=== PATIENT | female | born 1950 | race Caucasian/White ===

== ENCOUNTER 2019-04-17 14:27 | Outpatient (CLI) | payer MEDICARE, SELFPAY ==
--- NOTE | ~2019-04-17 | MM_ITS ---
EXAMINATION: MM screening mata BI w maia HISTORY: Screening mammogram TECHNIQUE: Craniocaudal and mediolateral oblique 3-D tomosynthesis images were obtained and synthetic 2-D images were generated. CAD analysis was submitted and interpreted. COMPARISON: No prior mammogram is available for comparison at this institution. BREAST PARENCHYMAL COMPOSITION: There are scattered areas of fibroglandular density. FINDINGS: There is no evidence of suspicious mass, calcification, or architectural distortion to sugg est malignancy in either breast. IMPRESSION: 1. No mammographic evidence of malignancy. 2. Recommend routine screening mammography in one year. BI-RADS Category 1: Negative Reviewed, dictated and finalized at location A. 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
== END 2019-04-17 14:28 | disposition home or self-care (01) ==
LOC: ANHIMG 14:36
PROVIDERS: PCP Family Medicine; Visit Provider Family Medicine
DX: Z12.31 Encounter for screening mammogram for malignant neoplasm of breast (principal)
CPT/HCPCS: 77063; 77067

== ENCOUNTER 2019-08-23 11:11 | Outpatient (CLI) | payer MEDICARE, SELFPAY ==
--- NOTE | ~2019-08-23 | US_ITS ---
EXAMINATION:US venous doppler LE LT INDICATION:Left lower extremity pain TECHNIQUE: Multiple grayscale, color flow and Doppler images of the left lower extremity deep venous systems were obtained and reviewed. COMPARISON:No prior studies for comparison. FINDINGS: The common femoral, superficial femoral and popliteal veins demonstrate normal respiratory variation, augmentation and compressibility. Color flow is also seen within the posterior tibial, pe roneal, greater saphenous and profunda veins. IMPRESSION: 1: No lower extremity deep venous thrombosis. Reviewed, dictated and finalized at location A.
== END 2019-08-23 11:12 | disposition home or self-care (01) ==
PROVIDERS: PCP Family Medicine; Visit Provider Family Medicine
DX: I83.812 Varicose veins of left lower extremity with pain (principal)
CPT/HCPCS: 93971

== ENCOUNTER 2020-03-04 13:41 | Outpatient (CLI) | payer MEDICARE, SELFPAY ==
--- NOTE | 2020-03-04 | ECHO_ITS ---
Patient Info Name: Natasha Del Rio Age: 69 years : 1950 Gender: Female Ht: 65 in Wt: 180 lbs BSA: 1.96 m2 HR: 80 bpm BP: 163 / 95 mmHg Heart Rhythm: Sinus Rhythm Technical Quality: Good Exam Date: 03/04/2020 2:14 PM Exam Location: [facility] Patient Status: Outpatient Admit Date: 03/04/2020 Staff Ordering Physician: Glenn Thomas MD Supervisor Felting: Evaristo Fernandes RDCS Attending Provider: Glenn Thomas MD Referring Physician: Martha BHATT; Exam Type: CA echo doppler color flow Study Info Indications Z95.2 - Presence of prosthetic heart valve Complete two-dimensional, color flow and Doppler transthoracic echocardiogram is performed. History/Risk Factors Prior bioprosthetic aortic valve replacement. Summary 1. Complete two-dimensional, color flow and Doppler transthoracic echocardiogram is performed. 2. Left ventricular systolic function is normal, estimated at 55-60%. 3. There is mildly increased left ventricular wall thickness. 4. The left ventricular diastolic function is grade I diastolic dysfunction. 5. The aortic valve is not well visualized. Bioprosthetic valve cannot be excluded. DVI 0.6 which would not be consistent with prosthetic valve stenosis if present. Consider LAVERNE if clinically indicated. 6. Unable to estimate PA systolic pressure due to poor spectral resolution of tricuspid regurgitant jet velocity. Left Ventricle Left ventricular chamber dimension is normal. Left ventricular systolic function is normal, estimated at 55-60%. There is mildly increased left ventricular wall thickness. The left ventricular diastolic function is grade I diastolic dysfunction. Right Ventricle Right ventricular chamber dimension is normal. Right ventricular systolic function is normal. Left Atria Left atrial chamber dimension is normal. Right Atria Right atrial chamber dimension is mildly enlarged. Aortic Valve The aortic valve is not well visualized. Bioprosthetic valve cannot be excluded. DVI 0.6 which would not be consistent with prosthetic valve stenosis if present. Consider LAVERNE if clinically indicated. There is trace aortic valve regurgitation. Pulmonic Valve The pulmonic valve is not well visualized. Mitral Valve The mitral valve has thickened leaflets. There is trace mitral valve regurgitation. The mitral valve annulus is moderately calcified. Tricuspid Valve The tricuspid valve leaflets are normal. There is trace tricuspid valve regurgitation. Unable to estimate PA systolic pressure due to poor spectral resolution of tricuspid regurgitant jet velocity. Pericardium/Pleural The pericardium appears not well visualized. Inferior Vena Cava Normal inferior vena cava with >50% collapse upon inspiration consistent with normal right atrial pressure, 5 mmHg. Aorta The aortic root size at the sinus of Valsalva is normal. Left Ventricular Outflow Tract Name Value Normal LVOT Doppler LVOT Peak Gradient 7 mmHg LVOT Mean Gradient 3 mmHg LVOT VTI 27 cm LVOT VTI/AV VTI Ratio 0.6 Mitral Valve
== END 2020-03-04 13:42 | disposition home or self-care (01) ==
PROVIDERS: PCP Family Medicine; Visit Provider Family Medicine
DX: Z95.2 Presence of prosthetic heart valve (principal)
CPT/HCPCS: 93306

== ENCOUNTER 2020-03-17 10:38 | Outpatient (NON) | payer MEDICARE, SELFPAY ==
[2020-03-17 22:17] LABS: SARS-CoV-2 RNA PCR Positive
== END 2020-03-17 10:39 ==
LOC: ANHCOVIDDT 10:39
PROVIDERS: PCP Family Medicine; Visit Provider Family Medicine
DX: U07.1 COVID-19 (principal)
CPT/HCPCS: C9803; U0003

== ENCOUNTER 2020-09-03 08:51 | Outpatient (CLI) | payer MEDICARE, SELFPAY ==
--- NOTE | ~2020-09-03 | MR_ITS ---
EXAMINATION: MR brain/brain stem wo/w con DATE: 09/03/2020 10:13 INDICATION: Slurred speech. TECHNIQUE: Magnetic resonance imaging (MRI) of the brain and brainstem was performed without and with 14 mL Multihance intravenous contrast. Sequences included sagittal and axial T1-weighted SE, axial d iffusion-weighted FS SE, axial T2*-weighted GRE, axial T2-weighted FLAIR, and axial T2-weighted FSE. Postcontrast axial and coronal T1-weighted SE was obtained. Apparent diffusion coefficient (ADC) maps were created. COMPARISON: Head CT dated 12/04/2017 FINDINGS: There are no areas of restricted diffusion to suggest acute infarction. Small old infarct in the righ t cerebellar hemisphere. No intracranial hemorrhage or abnormal intracranial mass lesion. There are s cattered areas of nonspecific increased T2-weighted signal intensity in the cerebral white matter, pr edominantly involving the deep and periventricular white matter which is within normal limits for age . There are no intraparenchymal signal abnormalities seen on the other pulse sequences. The ventricle s are symmetric and normal in size. There are no abnormal extra-axial fluid collections. Flow voids a re seen in the cerebral arteries on the T2-weighted sequences consistent with their expected patency. Mucosal thickening in the right maxillary and bilateral ethmoid sinuses. Visualized orbits and soft tissues are unremarkable. There are no areas of abnormal enhancement on the post contrast images. IMPRESSION: 1. No acute intracranial process or abnormally enhancing brain lesions. 2. 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 3. Mild scattered nonspecific white matter T2 hyperintensity which is within normal limits for age an d likely sequela of chronic small vessel ischemic disease. Reviewed, dictated and finalized at location A. IMPRESSION: 1. No acute intracranial process or abnormally enhancing brain lesions. 2. 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 3. Mild scattered nonspecific white matter T2 hyperintensity which is within no rmal limits for age and likely sequela of chronic small vessel ischemic disease .
--- NOTE | ~2020-09-03 | US_ITS ---
US right upper quadrant INDICATION: Disorder of bilirubin metabolism PROCEDURE: Realtime right upper abdominal ultrasound. COMPARISON: No prior studies for comparison. FINDINGS: The pancreas is normal without focal mass or pancreatic ductal dilation. There is a 12 mm cyst of the liver. Otherwise, liver echotexture is unremarkable. There is normal directional flow in the portal vein. Gallbladder is surgically absent. Common bile duct measures 4 mm. IMPRESSION: 1: Liver cysts measuring 12 mm. 2: Status post cholecystectomy. Reviewed, dictated and finalized at location B.
[2020-09-03 09:45] LABS: Estimated Glomerular Filt Rate > 60
== END 2020-09-03 08:52 | disposition home or self-care (01) ==
PROVIDERS: PCP Family Medicine; Visit Provider Nurse Practitioner
DX: E80.7 Disorder of bilirubin metabolism, unspecified (principal); R93.0 Abnormal findings on diagnostic imaging of skull and head, not elsewhere classified; K76.89 Other specified diseases of liver; Z90.49 Acquired absence of other specified parts of digestive tract
CPT/HCPCS: 70553; 76705; A9577

== ENCOUNTER 2020-10-29 12:30 | Outpatient (RCR) | payer MEDICARE, SELFPAY ==
--- NOTE | 2020-10-03 11:31 | PTOPEVAL ---
PHYSICAL THERAPY EVALUATION AND PLAN OF CARE 10-03-20 Thank you for referring Natasha Del Rio to [facility] for the diagnosis of decreased gait and balance skills. She is scheduled to be seen for therapy? 2 x/week for 4 weeks. Please review, sign, date and return this plan of care AMI. I agree with and certify that the following plan of care is medically necessary. Referring Physician Date Attending Provider: Glenn Thomas MD *PT Outpatient Evaluation Start: 10/03/20 10:31 Past Medical History Source of Past Medical History Patient Neurological History Hx Cerebrovascular Accident (CVA) Yes: showed on MRI- pt not sure when occurred Cardiovascular History Hx Hypertension Yes: med control Hx Valve Replacement Yes: aortic valve replacement - on blood thinner Respiratory History Hx Respiratory Disorders No Significant History Gastrointestinal History Hx Cholecystectomy Yes Genitourinary History Hx Genitourinary Disorders No Significant History Musculoskeletal History Hx Back Pain Yes: cannot stand very long due to back pain Hx Other Musculoskeletal Disorders Yes: chronic neck & back pain- see chiropractor PRN Endocrine History Hx Endocrine Disorders No Significant History HEENT History Hx Other HEENT Disorders Yes: wear glasses Other History Hx Other Medical Conditions Yes: had COVID Onur- recovery ~ 3wk;have not had COVID vaccine Evaluation Information Problem Diagnosis poor balance; dizziness Onset Dec 2019 Subjective Information gradual decrease in walking Query Text:As Reported By Patient/ and balance abilities; people Family report speech is different- talk slower or cannot understand my words; have had 3 falls in the past 6 months - when walking--uneven surface and when carrying something in hands, toe catch and feet drag; to see neurologist, but not until Sept; reports sometimes head feels foggy and off balanced; discussed reasons for this--BP , to start monitoring at home; stated- usually happens after up on feet awhile; discussed rest time, fluid and food intake- reports not drinking much water;
--- NOTE | 2020-10-27 11:41 | PCPTNOTE ---
Patient called & cancelled scheduled appointment this date due to falling this morning while walking her dog. Per reception agent staff Pt stated she was too sore to come in. Will continue per POC.
--- NOTE | 2020-10-29 13:23 | PTOPEVAL ---
PHYSICAL THERAPY DISCHARGE 10-29-20 Refer to the clinical summary below, for her status today, compared to the initial evaluation. The goals were achieved, except the goal for NO falls. Thank you for referring Natasha Del Rio to [facility] Please review, sign, date and return this Discharge AMI. I agree with and certify that the following plan of care is medically necessary. Referring Physician Date Attending Provider: Glenn Thomas MD Document 10/29/20 12:40 TALIA (Rec: 10/29/20 13:23 TALIA [id number]) Assessment Status Discharge Subjective Information Natasha reports: had a fall Query Text:As Reported By Patient/ when walking dog and got Family pulled over--landed on her L hand and it is still sore; am doing OK on stairs; doing leg exercises and doing good with them; feel like walking is better- not dragging toe and picking up feet better, more balanced; walking with walking stick when go outside and walk, not using anything in the house; agreed to discharge from PT services and to continue with exercises at home; Pain Assessment Timing of Pain Assessment Timing of Pain Assessment Assessment Self Report Self Report Pain Level 0 Pain Score Pain Score 0: Self Report Additional Pain Score Comments pain L wrist and hand due to fall few days ago and landed on L UE- walking dog and pulled her over Lower Extremity Muscle Strength Testing General Lower Extremity Strength Gross Lower Extremity Strength functional strength testing: single leg standing R 3/L 3 seconds supine: SLR R 20/L reps; bridge x 20 reps side lying hip abduction R to ~ 10' hip abduction x 20/ L hip abduction to ~ 10' x 20 reps sitting ankle circles L x 20 reps- clock and counter clock worthy with good control HEP: verbal review of HEP, reinforced continue and add single leg standing with hold countertop PRN; reminders
== END 2020-10-30 16:31 | disposition home or self-care (01) ==
LOC: ANHPT 12:30
PROVIDERS: PCP Family Medicine; Visit Provider Family Medicine
DX: R42 Dizziness and giddiness (principal); R26.81 Unsteadiness on feet
CPT/HCPCS: 97110; 97161

== ENCOUNTER 2020-11-26 09:53 | Outpatient (CLI) | payer MEDICARE, SELFPAY ==
--- NOTE | ~2020-11-26 | US_ITS ---
EXAMINATION: US carotid duplex BI DATE: 11/26/2020 10:27 INDICATION: Cerebral infarction TECHNIQUE: Grayscale, color Doppler, and pulsed Doppler images of the cervical carotid arteries were obtained. The degree of vessel stenosis is placed in one of the following categories: normal, <50%, 5 0-69%, >=70% but less than near-occlusion, near-occlusion, or total occlusion. Note that percent sten osis relative to normal distal artery lumen diameter is indirectly measured from velocity measurement s as described by Zen, et al. Radiology 2003; 229:340-346. Notes: Normal: Peak systolic velocity <125 centimeters/sec and no plaque <50%. Peak systolic velocity <125 ( EDV <40; ICA/CCA PSV ratio <2.0; used these factors only a tandem lesions or low cardiac output or co ntralateral disease) 50-69 %: PSV 125-230 (EDV 40-100; ratio 2-4) >= 70% but less than near occlusion: PSV greater than 230 (EDV > 100; ratio> 4.0) Near Occlusion: PSV that is variable; markedly narrowed lumen Occlusion: Absent flow on color/spectral Doppler and no lumen on benitez scale. COMPARISON: None. FINDINGS: RIGHT: The right common carotid artery (CCA) peak systolic velocity (PSV) is 74 cm/s. The right internal car otid artery (ICA) PSV is 64 cm/s. The right ICA end-diastolic velocity (EDV) is 20 cm/s. The right IC A/CCA PSV ratio is 0.9. The external carotid artery (ECA) PSV is 51 cm/s. There is antegrade flow in the right vertebral artery. LEFT: The left CCA PSV is 78 cm/s. The left ICA PSV is 54 cm/s. The left ICA EDV is 15 cm/s. The left ICA/C CA PSV ratio is 0.7. The ECA PSV is 65 cm/s. There is antegrade flow in the left vertebral artery. IMPRESSION: 1. Less than 50% stenosis in the right internal carotid artery by sonographic criteria. 2. Less than 50% stenosis in the left internal carotid artery by sonographic criteria. Reviewed, dictated and finalized at location A. IMPRESSION: 1. Less than 50% stenosis in the right internal carotid artery by sonographic jorgito carranza. 2. Less than 50% stenosis in the left internal carotid artery by sonographic lakesha bermudez.
== END 2020-11-26 09:54 | disposition home or self-care (01) ==
LOC: ANHIMG 09:58
PROVIDERS: PCP Family Medicine; Visit Provider Internal Medicine Cardiovascular Disease
DX: I65.23 Occlusion and stenosis of bilateral carotid arteries (principal)
CPT/HCPCS: 93880

== ENCOUNTER 2021-01-29 13:01 | Outpatient (CLI) | payer MEDICARE, SELFPAY ==
--- NOTE | ~2021-01-29 | MM_ITS ---
EXAMINATION: MM screening mata BI w maia HISTORY: Screening mammogram TECHNIQUE: Craniocaudal and mediolateral oblique 3-D tomosynthesis images were obtained and synthetic 2-D images were generated. CAD analysis was submitted and interpreted. COMPARISON: No prior mammogram is available for comparison at this institution. BREAST PARENCHYMAL COMPOSITION: The breasts are heterogeneously dense, which may obscure small masses . FINDINGS: Stable mild fibroglandular asymmetry. There is no evidence of suspicious mass, calcificatio n, or architectural distortion to suggest malignancy in either breast. There has been no suspicious i nterval change. IMPRESSION: 1. No mammographic evidence of malignancy. 2. Recommend routine screening mammography in one year. BI-RADS Category 1: Negative Reviewed, dictated and finalized at location A. E CARPENTER
--- NOTE | ~2021-01-29 | DEXA_ITS ---
Bone Density Report Name: Natasha Del Rio Age: 70 Sex: Female Ethnicity: White Date of : 1950 Indication: postmenopausal; height loss; Referring Provider: Florencio, Zraa Zuleta Study: Bone densitometry was performed. Exam Date: January 29, 2021 Accession number: [id number] Bone Density: Region BMD T-score Z-score Classification AP Spine (L1-L4) 0.645 -3.7 -1.6 Osteoporosis Femoral Neck (Left) 0.563 -2.6 -0.8 Osteoporosis Total Hip (Left) 0.589 -2.9 -1.4 Osteoporosis Total Hip Bilateral Avg 0.561 -3.2 -1.7 Osteoporosis Femoral Neck (Right) 0.545 -2.7 -1.0 Osteoporosis Total Hip (Right) 0.532 -3.4 -1.9 Osteoporosis World Health Organization criteria for BMD impression classify patients as: Normal (T-score at or above -1.0), Osteopenia (T-score between -1.0 and -2.5), or Osteoporosis (T-score at or below -2.5). 10-year Fracture Risk: FRAX not reported because: Some T-score for Spine Total or Hip Total or Femoral Neck at or below -2.5 Clinical Information Provided by Patient: Has used the following medications: Vitamin D Patient maximum height was 66 Menopause Age: 56 No regular weight bearing exercise Does not regularly consume dairy products Onset of menses at age 15 Number of children 1 Impression: The patient has osteoporosis, based on the Total Spine T-score. Discussion: INCREASED RISK OF FRACTURE. BONE DENSITY IS UNDESIRABLY LOW AT ONE OR MORE SKELETAL SITES, CONSISTENT WITH POSTMENOPAUSAL OSTEOPOROSIS. This patient's lowest T-score meets the World Health Organization's (WHO) criteria for osteoporosis at one or more sites (T-score -2.5 or below). In untreated patients, the risk of osteoporotic fracture increases approximately two-fold for each 1.0 SD decrease in T-score. Low bone density is not the only risk factor for fracture; also consider factors such as patient's age, frailty or poor health, risk of falling, risk of injury, previous osteoporotic fracture, family history of osteoporosis, cigarette smoking, low body weight, etc. Not everyone with low bone mineral density has osteoporosis; osteomalacia and other metabolic bone disorders should also be considered. Patients who have osteoporosis should be evaluated for specific diseases and conditions (secondary causes) that may cause or contribute to bone loss. The [place] [employer] Clinical Endocrinologists (AACE) and National Osteoporosis Foundation (NOF) recommend pharmacologic intervention for all postmenopausal women whose T-score is in this range. The patient should follow a healthful lifestyle (good nutrition with adequate calcium and vitamin D, and appropriate weight-bearing exercise). Follow-Up: Consider a repeat BMD and Vertebral Fracture Assessment (VFA) exam in 2 years or sooner if medically necessary, to reassess this patient's status.
== END 2021-01-29 13:02 | disposition home or self-care (01) ==
PROVIDERS: PCP Family Medicine; Visit Provider Nurse Practitioner
DX: Z12.31 Encounter for screening mammogram for malignant neoplasm of breast (principal); Z78.0 Asymptomatic menopausal state; M81.0 Age-related osteoporosis without current pathological fracture
CPT/HCPCS: 77063; 77067; 77080

== ENCOUNTER 2021-07-21 11:08 | Emergency (ER) | payer MEDICARE, SELFPAY ==
--- NOTE | ~2021-07-21 | CT_ITS ---
CT OF RIGHT WRIST EXAMINATION: CT wrist RT wo con DATE: 07/21/2021 14:04 INDICATION: Known fracture. TECHNIQUE: Computed tomography (CT) of the right wrist was performed without intravenous contrast. Au tomated exposure control and iterative reconstruction technique were employed. The dose-length produc t was 402.21 mGy-cm. COMPARISON: None FINDINGS: Limitations: None Bones: Comminuted mildly impacted and dorsally displaced fracture of the distal right radius/radial s tyloid with extension to the radiocarpal joint. Minimally displaced ulnar styloid fracture. No other fracture detected. Mild scattered degenerative changes in the carpal bones. Soft Tissues:The soft tissues appear within normal limits. No evidence of mass or fluid collection. Fluid: Mild joint fluid and soft tissue swelling about the fracture site. IMPRESSION: Mildly impacted and dorsally displaced comminuted intra-articular distal right radial fracture. Minim ally displaced right ulnar fracture. Reviewed, dictated and finalized at location K. IMPRESSION: Mildly impacted and dorsally displaced comminuted intra-articular distal right radial fracture. Minimally displaced right ulnar fracture.
--- NOTE | ~2021-07-21 | XR_ITS ---
EXAMINATION: XR ribs RT 2V w CXR 2V INDICATION: Chest pain after fall TECHNIQUE: PA and lateral views of the chest and 3 views of the right ribs were obtained. COMPARISON: None. FINDINGS: There are minimal bibasilar airspace opacities. Changes of cardiac valve surgery are noted. There is no pleural effusion or pneumothorax. There is moderate thoracic spondylosis. Surgical clips in the right upper quadrant are likely from prior cholecystectomy. No displaced rib fracture is iden tified. IMPRESSION: 1. No acute cardiopulmonary abnormality or evidence of displaced rib fracture. Reviewed, dictated and finalized at location A.
--- NOTE | ~2021-07-21 | XR_ITS ---
EXAMINATION: XR wrist RT min 3V INDICATION: Right wrist pain, initial encounter TECHNIQUE: Four views of the right wrist are obtained. COMPARISON: None available FINDINGS: There is a comminuted intra-articular fracture of the distal radius. There is an ulnar styl oid avulsion fracture. Wrist soft tissue swelling is present. No additional fracture is identified. IMPRESSION: 1. Comminuted intra-articular fracture of the distal radius. 2. Ulnar styloid avulsion. 3. Soft tissue swelling. Reviewed, dictated and finalized at location A.
--- NOTE | ~2021-07-21 | XR_ITS ---
EXAMINATION: XR hand RT 2V INDICATION: Right hand pain TECHNIQUE: Two views of the right hand are obtained. COMPARISON: None available FINDINGS: There is an acute, traumatic, closed, minimally displaced fracture of the distal radius. Th ere is no acute fracture, dislocation, or subluxation of the hand. There is moderate to severe osteoa rthritis at the first interphalangeal joint. There is mild osteoarthritis of multiple additional inte rphalangeal joints. IMPRESSION: 1. Right distal radius fracture. 2. No acute osseous abnormality of the hand. Reviewed, dictated and finalized at location A.
--- NOTE | ~2021-07-21 | CT_ITS ---
EXAMINATION: CT brain wo con INDICATION: Headache COMPARISON: 12/04/2017 TECHNIQUE: Standard unenhanced head CT. The dose-length product (DLP) was 605.33 mGy-cm. The mA was a djusted according to patient size. Iterative reconstruction technique was employed. FINDINGS: There is no acute intraparenchymal hemorrhage. No evidence of mass lesion. No evidence of a cute infarction. There is mild periventricular and subcortical hypodensity probably related to small vessel ischemic disease. There is mild prominence of the sulci and ventricles related to cerebral atr ophy. Intracranial calcified cerebral atherosclerosis is noted. There are no extra-axial collections. There is no mass effect or midline shift. The orbits and soft tissues are unremarkable. There is kenneth r complete opacification of the right maxillary sinus. IMPRESSION: 1. No acute intracranial abnormality. 2. Age related findings. Reviewed, dictated and finalized at location A.
[2021-07-21 11:12] VITALS: BP 187/78; PULSE 66; RESP 16; TEMP 36.4; O2SAT 99
--- NOTE | 2021-07-21 12:23 | ED.FALL ---
HPI - Fall General Chief Complaint: Fall Stated Complaint: R wrist injury Time Seen by Provider: 07/21/21 12:03 Source: patient History of Present Illness HPI Narrative: Patient presents with a fall. Patient ports she was outside weeding when she tripped on something in the yard reports she fell on her extended right hand and onto her right chest. Reports pain on her right hand and wrist that is achy, constant, worse with moving her wrist, no radiation. She also reports pain in her right chest that is achy, constant, worse with moving her torso. She had striking her head and had loss of consciousness denies any focal numbness or weakness. She denies any prodrome prior to the fall chest pain shortness of breath or lightheadedness. Related Data Home Medications Medication Instructions Recorded Confirmed warfarin 4 mg tablet 10 mg PO DAILY tablet 05/09/20 05/11/21 warfarin 1 mg tablet 1 mg PO DAILY PRN 03/23/21 05/11/21 coenzyme Q10-red yeast rice 25 cap PO 05/11/21 05/11/21 mg-600 mg capsule omega 2-yij-hjw-fish oil 1,600 5 ml PO DAILY 05/11/21 05/11/21 mg-500 mg-800 mg/5 mL oral liquid pyridoxine (vitamin B6) 500 mg 500 mg PO DAILY 05/11/21 05/11/21 tablet Allergies Allergy/AdvReac Type Severity Reaction Status Date / Time No Known Allergies Allergy Verified 05/11/21 09:19 Review of Systems Review of Systems: CONSTITUTIONAL: Denies fever, chills, or sweats. EYES: Denies visual changes, redness, or discharge. ENT: Denies rhinorrhea, congestion, sore throat, or otalgia. CARDIOVASCULAR: Denies palpitations, or edema. RESPIRATORY: Denies cough or dyspnea. GASTROINTESTINAL: Denies abdominal pain, nausea, vomiting, or diarrhea. GENITOURINARY: Denies dysuria or hematuria. SKIN: Denies rash or itching. MUSCULOSKELETAL: Denies back pain, or myalgia. NEUROLOGIC: Denies headache, numbness, dizziness, or weakness. PSYCHIATRIC: Denies anxiety or depression. All systems reviewed & are unremarkable except as noted in HPI and below PMFSH Past Medical History Medical History Blood clot in vein Hypertension Vitamin D deficiency Surgical History Surgical History Presence of other heart-valve replacement Social History Social History Smoking packs per day: 0.5 Smoking cigarettes per day: 10.0 Years smoked: 15 Smoking pack-years: 7.50 Smoking status: Former smoker Smoking end date: 03/18/99 Alcohol intake: never Substance use: never Substance use type: does not use Exam Narrative: GENERAL: Well-appearing, well-nourished, and in no acute distress. HEAD: Normocephalic, atraumatic. EYES: PERRLA and EOMI. ENT: Nares clear, no rhinorrhea or epistaxis. Mucous membranes moist. NECK: Supple. No masses. No JVD EXTREMITIES: Hematoma to the dorsal aspect of the right hand with overlying ecchymoses. There is diffuse tenderness to the dorsal aspect of the hand and wrist. There is no obvious deformity no focal bony tenderness range of motion remains intact sensation intact to light touch distally cap refill less than 2 seconds distally. CHEST: Mild tenderness with palpation on the right lateral chest wall no obvious deformity no crepitus. SKIN: Warm, dry, no rash. NEURO: No focal deficits. Alert and oriented x3. PSYCH: Normal mood and affect. Course Reevaluation(s) Reevaluation #1: Case cussed with Ortho on-call who requested a CT scan splint and outpatient follow-up. Patient updated on the plan and she is comfortable with the outpatient plan. Date: 07/21/21 Time: 13:49 Reevaluation #2: Splint in place patient resting comfortably results and plan again reviewed with patient. Medication precautions given Date: 07/21/21 Time: 14:28 Vital Signs Vital signs: Vital Signs Temperature 36.4 C L 07/21/21 11:12 Pulse Rate 66 07/21/21 11:12
[2021-07-21] MEDS: ACETAMINOPHEN 500 MG TABLET 1000 MG PO (13:58)
[2021-07-21 14:56] VITALS: BP 171/74; PULSE 66; RESP 18; O2SAT 98
--- NOTE | 2021-08-24 09:52 | PC.NURSE ---
LATE ENTRY This note is being entered to document information to the patient's record. The following information was omitted on [07/21/2021], by [Coty Ramirez RN]. R wrist splint placed per ERMD order.
== END 2021-07-21 14:57 | disposition home or self-care (01) ==
PROVIDERS: Emergency Provider Emergency Medicine; PCP Internal Medicine
DX: S52.571A Other intraarticular fracture of lower end of right radius, initial encounter for closed fracture (principal); S52.611A Displaced fracture of right ulna styloid process, initial encounter for closed fracture; S60.221A Contusion of right hand, initial encounter; I10 Essential (primary) hypertension; E55.9 Vitamin D deficiency, unspecified; Z95.2 Presence of prosthetic heart valve; Z79.01 Long term (current) use of anticoagulants; Z87.891 Personal history of nicotine dependence; W18.09XA Striking against other object with subsequent fall, initial encounter
CPT/HCPCS: 29125; 70450; 71046; 71100; 73110; 73120; 73200; 99284; A9270

== ENCOUNTER 2021-07-28 11:36 | Outpatient (CLI) | payer MEDICARE, SELFPAY ==
--- NOTE | ~2021-07-28 | XR_ITS ---
EXAMINATION: XR wrist RT min 3V INDICATION: Wrist pain after fall, wrist fracture one week ago TECHNIQUE: Three views of the right wrist are obtained. COMPARISON: 07/22/2011 FINDINGS: There is a comminuted intra-articular fracture of the distal right radius without superimpo sed acute findings identified. Bone alignment is unchanged. Soft tissue swelling has decreased. A elsie t has been applied. IMPRESSION: 1. Comminuted intra-articular fracture of the distal right radius without definite acute findings elli ntified. Reviewed, dictated and finalized at location A. IMPRESSION: 1. Comminuted intra-articular fracture of the distal right radius without defin ite acute findings identified.
== END 2021-07-28 11:37 | disposition home or self-care (01) ==
PROVIDERS: PCP Internal Medicine; Visit Provider Internal Medicine
DX: S52.514D Nondisplaced fracture of right radial styloid process, subsequent encounter for closed fracture with routine healing (principal); X58.XXXD Exposure to other specified factors, subsequent encounter
CPT/HCPCS: 73110

== ENCOUNTER 2021-09-15 09:47 | Observation (INO) | payer MEDICARE, SELFPAY ==
[2021-09-15] VITALS (13 sets, daily range): BP systolic 114–156; BP diastolic 66–88; PULSE 68–85; RESP 15–20; TEMP 36.1–36.7; O2SAT 95–99
--- NOTE | ~2021-09-15 | XR_ITS ---
EXAMINATION: XR hand LT min 3V INDICATION: Left hand pain, initial encounter TECHNIQUE: Three views of the left hand are obtained. COMPARISON: None available FINDINGS: There is an acute, traumatic, closed, oblique fracture in the distal neck of the fifth meta carpal. Soft tissue swelling surrounds the fracture. There are 45 degrees of palmar angulation at the fracture site. No additional fracture is identified. There is mild osteoarthritis of multiple interp halangeal joints. IMPRESSION: 1. Acute fracture in the distal neck of the fifth metacarpal with palmar angulation. Reviewed, dictated and finalized at location B. IMPRESSION: 1. Acute fracture in the distal neck of the fifth metacarpal with palmar angula tion.
--- NOTE | ~2021-09-15 | CT_ITS ---
EXAMINATION: CT brain wo con INDICATION: Head injury COMPARISON: 07/21/2021 TECHNIQUE: Standard unenhanced head CT. The dose-length product (DLP) was 681.00 mGy-cm. The mA was a djusted according to patient size. Iterative reconstruction technique was employed. FINDINGS: There is no acute intraparenchymal hemorrhage. No evidence of mass lesion. No evidence of a cute infarction. There is mild periventricular and subcortical hypodensity probably related to small vessel ischemic disease. There is mild prominence of the sulci and ventricles related to cerebral atr ophy. Intracranial calcified cerebral atherosclerosis is noted. There are no extra-axial collections. There is no mass effect or midline shift. The orbits are unremarkable. There is left nasal soft tiss ue swelling. There is chronic near complete opacification of the right maxillary sinus with sclerosis of the sinus lanza, consistent with chronic sinusitis. Mild mucosal thickening is noted in the ethmo idal air cells. IMPRESSION: 1. No acute intracranial abnormality. 2. Age related findings. Reviewed, dictated and finalized at location B.
--- NOTE | ~2021-09-15 | CT_ITS ---
EXAMINATION: CT cervical spine wo con DATE: 09/15/2021 10:19 INDICATION: Head injury TECHNIQUE: Computed tomography (CT) of the cervical spine was performed without intravenous contrast. The dose-length product (DLP) was 120.75 mGy-cm. Automated exposure control and iterative reconstruc tion technique were employed. COMPARISON: 12/04/2017 FINDINGS: There is no fracture, dislocation, or subluxation. There is moderate loss of intervertebral disc space height at C5-6 and mild loss of the disc space height at C3-4 and C4-5. The odontoid is i ntact. The vertebral body heights are normal. The prevertebral soft tissues are unremarkable. There i s mild to moderate facet and uncovertebral joint osteoarthritis at multiple levels. IMPRESSION: 1. Mild cervical spondylosis without acute findings or significant interval change. Reviewed, dictated and finalized at location B. IMPRESSION: 1. Mild cervical spondylosis without acute findings or significant interval horacio nge.
[2021-09-15 11:33] LABS: Basophils Percent Auto 0.3 % (0.2-1.2); Eosinophils Percent Auto 0.3 % (0-4.4); Hematocrit 37.1 % (37.0-47.0); Hemoglobin 12.4 g/dL (12.0-15.0); Immature Granulocyte Absolute 0.03 K/mm3 (0.00-0.031); Immature Granulocyte Percent A 0.4 % (0-0.5); Lymphocytes Absolute Auto 0.88 K/mm3 (0.9-3.2); Lymphocytes Percent Auto 13.1 % (18.3-44.2); Mean Corpuscular HGB Conc 33.4 g/dl (32-36); Mean Corpuscular Hemoglobin 30.1 pg (26-34); Mean Platelet Volume 9.2 fl (7.4-10.4); Monocytes Absolute Auto 0.4 K/mm3 (0.1-0.6); Monocytes Percent Auto 6.1 % (2.6-8.5); Neutrophils Absolute Auto 5.4 K/mm3 (1.3-6.7); Neutrophils Percent Auto 79.8 % (45.5-73.1); Platelet Count Result 242 k/mm3 (150-375); Red Blood Count 4.12 M/mm3 (4.2-5.4); Red Cell Distribution Width 13.3 % (11.5-14.5); White Blood Count 6.7 K/mm3 (4.5-10.0)
[2021-09-15 11:46] LABS: Anion Gap 6 mmol/L (8-16); Blood Urea Nitrogen 14 mg/dL (7-17); Calcium 9.1 mg/dL (8.4-10.2); Carbon Dioxide 26 mmol/L (22-30); Chloride 105 mmol/L (98-107); Estimated CRCL calculation 65 ml/min; Estimated Glomerular Filt Rate > 60; Glucose 110 mg/dL (65-110); Potassium 4.2 mmol/L (3.4-5.0); Sodium 137 mmol/L (137-145)
--- NOTE | 2021-09-15 11:58 | ED.HEATRA ---
HPI - Head Injury General Chief complaint: Head Injury Stated complaint: fall Time Seen by Provider: 09/15/21 10:09 History of Present Illness HPI Narrative: 70-year-old female with history of multiple CVAs and difficulty ambulating as result presents here because she had fallen several times at home. She states that she is usually reliant on her right arm for using her cane however she had broken this recently, and therefore has been more off balance than usual. When she fell yesterday she hit her head, and today she fell hit her head again, and also landed on her left hand which is also painful. Denies any focal numbness or weakness. She is on Coumadin. Related Data Home Medications Medication Instructions Recorded Confirmed warfarin 4 mg tablet 10 mg PO DAILY 05/09/20 07/28/21 warfarin 1 mg tablet 1 mg PO DAILY PRN 03/23/21 07/28/21 Allergies Allergy/AdvReac Type Severity Reaction Status Date / Time No Known Allergies Allergy Verified 07/28/21 10:41 Review of Systems Review of Systems: CONST: No fever. HEENT: Head trauma C/V: No chest pain RESP: No cough GI: No nausea vomit : No dysuria. M/S: Left hand pain SKIN: Bruising of face, left hand NEURO: [No headache or focal numbness or weakness] PSYCH: [No depression] [facility] Past Medical History Medical History Blood clot in vein Hypertension Vitamin D deficiency Surgical History Surgical History Presence of other heart-valve replacement Social History Social History Smoking packs per day: 0.5 Smoking cigarettes per day: 10.0 Years smoked: 15 Smoking pack-years: 7.50 Smoking end date: 03/18/99 Alcohol intake: never Substance use: never Substance use type: does not use Exam Narrative: EXAMINATION OF ORGAN SYSTEMS/BODY AREAS: Constitutional: Vital signs per nursing GENERAL:[No acute distress, non-toxic appearing.] HEAD: Abrasions and contusions to the head EYES: EOMI, bruising periorbital ENT: Hearing grossly intact LUNGS: Nonlabored breathing. HEART: [Regular rate and rhythm] ABD: [Soft], [tender to palpation] EXT: Normal range of motion but bruising, swelling and tenderness to left hand, normal cap refill SKIN: Bruising to face, left hand NEURO: [Alert and oriented x 3. No gross focal sensory or strength deficits.] PSYCH: Normal affect Course Vital Signs Vital signs: Vital Signs Temperature 97.0 F L 09/15/21 09:53 Pulse Rate 85 09/15/21 09:53 Respiratory Rate 20 09/15/21 09:53 Blood Pressure 142/88 H 09/15/21 09:53 Pulse Oximetry 99 09/15/21 09:53 Oxygen Delivery Room Air 09/15/21 09:53 Temperature 97.0 F L 09/15/21 09:53 Pulse Rate 82 09/15/21 12:01 Respiratory Rate 15 09/15/21 12:01 Blood Pressure 146/79 H 09/15/21 12:01 Pulse Oximetry 98 09/15/21 12:01 Oxygen Delivery Room Air 09/15/21 10:07 MDM - Head Injury MDM Narrative Medical decision making narrative: 70-year-old female presenting with falls, vital signs stable, exam does show swelling to face and tenderness and deformity to the left hand, x-ray does confirm fracture to the fifth metacarpal, CT head/C spine obtained given she is on Coumadin with falls, and they are negative for acute abnormality. I suspect most likely mechanical fall due to her chronic instability which is exacerbated by her right upper extremity fracture, doubt cardiac cause without any history of syncope, doubt infection or dehydration with normal vitals and labs. I do not feel patient is able to go home as she now has bilateral upper extremity fractures, she will be admitted, case discussed with hospitalist. Lab Data Result diagrams: 09/15/21 11:16 09/15/21 11:16 Labs: Lab Results 09/15/21 09/15/21 Range/Units 11:16 11:16 WBC 6.7 (4.5-10.0) K/mm3 RBC 4.
--- NOTE | 2021-09-15 13:01 | PM.IMHP ---
H&P: HPI History of Present Illness Date/Time: 09/15/21 13:01 Chief Complaint: fall with closed head injury Narrative: This is a 70-year-old female patient who has a history of having CVA he has with balance issues. The patient presented to the emergency room because she has fallen several times at home. The patient has her right wrist in a wrist splint and was having difficulty walking as that is her dominant arm and she uses a cane. The patient stated that she attempted to answer the door and then turned around and fell over the dog. The patient was complaining of left hand pain. She has contusions to her periorbital and nasal area. The patient also had a bloody nose at the time. The patient is on Coumadin. Her H&H is stable today. Hand x-ray of the left hand was read as acute fracture of the distal neck of the 5th metacarpal and palmar angulation. Cervical spine CT was read as mild cervical spondylosis without acute findings or significant interval change. Head CT was read as no acute intracranial abnormality. No age-related findings. Patient is being admitted to observation status and Case Management has been consulted. Review of Systems Review of Systems: All systems reviewed & are unremarkable except as noted in HPI and below Constitutional: Constitutional: Reports as per HPI and Reports no additional constitutional complaints Eyes: Eyes: Reports as per HPI and Reports no additional eye complaints ENT: Reports system reviewed and no additional complaints, except as documented and Reports Normal hearing present Cardiovascular: Cardiovascular: Reports no additional cardiovascular complaints Respiratory: Respiratory: Reports no additional respiratory complaints and Reports no additional respiratory complaints Gastrointestinal: Gastrointestinal: Reports as per HPI and Reports no additional gastrointestinal complaints Musculoskeletal: Musculoskeletal: Reports no additional musculoskeletal complaints Integumentary/Breasts: Skin/Breast: Reports system reviewed and no additional complaints, except as docu and Reports as per HPI Neurologic: Reports system reviewed and no additional complaints, except as documented, Reports as per HPI and Reports Normal hearing present Psychiatric: Psychiatric: Reports no additional psychiatric complaints and Reports as per HPI Endocrine: Endocrine: Reports no additional endocrine complaints Hematologic/Lymphatic: Hematologic/Lymphatic: Reports no additional hematologic/lymphatic complaints Allergic/Immunologic: Allergic/Immunologic: Reports no additional allergic/immunologic complaints [facility] Past Medical History Medical History (Updated 09/15/21 @ 15:36 by Zara Aaron NP) Blood clot in vein Hypertension Vitamin D deficiency Surgical History Surgical History (Updated 09/15/21 @ 15:31 by Zara Aaron NP) Hx of cholecystectomy Presence of other heart-valve replacement Family History Family History (Updated 09/15/21 @ 15:31 by Zara Aaron NP) Mother Cerebrovascular accident Social History Social History (Updated 09/15/21 @ 15:32 by Zara Aaron NP) Social History: She lives at home alone. She only has 1 son. Her son is the durable power patent attorney for healthcare and she has decided to be a full code. She is and her ex- is . She is retired from [employer]. Smoking packs per day: 0.5 Smoking cigarettes per day: 10.0 Years smoked: 15 Smoking pack-years: 7.50 Smoking status: Former smoker Smoking end date: 03/18/99 Alcohol intake: never Substance use: never Substance use type: does not use Meds Home Medications and Allergies Home Medications Medication Instructions Recorded Confirmed Type warfarin 4 mg tablet 10 mg PO DAILY 05/09/20 07/28/21 History warfarin 1 mg tablet 1 mg PO DAILY PRN 03/23/21 07/28/21 History calcium carbonate 500 mg-vitamin 1 tablet PO DAILY #90 tabs 07/22/21 07/28/21 Rx D3 10
[2021-09-15 14:00] LABS: SARS-CoV-2 RNA PCR Negative
--- NOTE | 2021-09-15 15:23 | ADMGEN ---
This patient, Natasha Del Rio, was admitted to 3 [facility] Surg Room 324-02. Patient/family oriented to hospital policies and general routines including ID bracelet, bed and alarms, visiting hours, pain management, procedures, bathroom and other care routines, personal items, smoking policy, room service/diet, and visiting hours. Information on how to activate the Rapid Response Team has been discussed. Patient/Family are encouraged to report perceived risks to care and to ask questions if they do not understand what they are told or what they should do.
[2021-09-15 17:24] LABS: INR 3.2; Prothrombin Time 31.3 Seconds (11.1-14.7)
[2021-09-15] MEDS: WARFARIN (*PBKC) 2.5 MG TABLET PO (18:20)
[2021-09-15] MEDS: oxyCODONE/ACETAMINOPHEN (*CRX) 5-325 MG TABLET 1 TABLET PO (18:21)
[2021-09-15] MEDS: WARFARIN (*PBKC) 10 MG TABLET PO (18:21)
[2021-09-15] MEDS: LOSARTAN POTASSIUM 25 MG TABLET PO (18:40)
[2021-09-16 06:00] VITALS: BP 113/55; PULSE 70; RESP 16; TEMP 36.6; O2SAT 98
[2021-09-16 07:48] LABS: Basophils Percent Auto 0.7 % (0.2-1.2); Eosinophils Absolute Auto 0.1 K/mm3 (0-0.3); Eosinophils Percent Auto 1.6 % (0-4.4); Hematocrit 34.4 % (37.0-47.0); Hemoglobin 11.8 g/dL (12.0-15.0); Immature Granulocyte Absolute 0.02 K/mm3 (0.00-0.031); Immature Granulocyte Percent A 0.4 % (0-0.5); Lymphocytes Absolute Auto 1.59 K/mm3 (0.9-3.2); Lymphocytes Percent Auto 28.3 % (18.3-44.2); Mean Corpuscular HGB Conc 34.3 g/dl (32-36); Mean Corpuscular Hemoglobin 30.6 pg (26-34); Mean Corpuscular Volume 89.4 fl (80-100); Mean Platelet Volume 9.2 fl (7.4-10.4); Monocytes Absolute Auto 0.4 K/mm3 (0.1-0.6); Monocytes Percent Auto 7.7 % (2.6-8.5); Neutrophils Absolute Auto 3.4 K/mm3 (1.3-6.7); Neutrophils Percent Auto 61.3 % (45.5-73.1); Platelet Count Result 236 k/mm3 (150-375); Red Blood Count 3.85 M/mm3 (4.2-5.4); Red Cell Distribution Width 13.4 % (11.5-14.5); White Blood Count 5.6 K/mm3 (4.5-10.0)
[2021-09-16 08:02] LABS: INR 3.7; Prothrombin Time 35.5 Seconds (11.1-14.7)
[2021-09-16 08:08] LABS: Alanine Aminotransferase 26 U/L (6-35); Albumin Level 4.6 g/dL (3.5-5.1); Alkaline Phosphatase 65 U/L (38-126); Anion Gap 4 mmol/L (8-16); Aspartate Amino Transferase 32 U/L (14-36); Bilirubin,Total 2.5 mg/dL (0.2-1.3); Blood Urea Nitrogen 12 mg/dL (7-17); Carbon Dioxide 27 mmol/L (22-30); Chloride 106 mmol/L (98-107); Estimated CRCL calculation 65 ml/min; Estimated Glomerular Filt Rate > 60; Glucose 94 mg/dL (65-110); Potassium 4.1 mmol/L (3.4-5.0); Sodium 137 mmol/L (137-145)
[2021-09-16 09:00] VITALS: BP 104/64
[2021-09-16] MEDS: ATORVASTATIN 20 MG TABLET PO (09:01)
[2021-09-16] MEDS: oxyCODONE/ACETAMINOPHEN (*CRX) 5-325 MG TABLET 1 TABLET PO ×2 (09:02→21:55)
[2021-09-16 11:30] VITALS: PULSE 81; O2SAT 95
[2021-09-16 14:00] VITALS: BP 118/69; PULSE 83; RESP 20; TEMP 36.3; O2SAT 97
[2021-09-16] MEDS: WARFARIN (*PBKC) 10 MG TABLET PO (17:13)
[2021-09-16] MEDS: WARFARIN (*PBKC) 2.5 MG TABLET PO (17:13)
[2021-09-16] MEDS: PHARMACIST COMMUNICATION ORDER 1 EACH XX (17:29)
--- NOTE | 2021-09-16 18:01 | PM.IMPN ---
Progress Note: A&P Assessment and Plan (1) Fracture, metacarpal: Code(s): S62.309A - Unspecified fracture of unspecified metacarpal bone, initial encounter for closed fracture Status: Acute Assessment and Plan: Ortho was consulted per ED provider. However the patient will need to be placed inpatient rehab for therapy. PT and OT evaluation has been ordered. Patient has a radial fracture to the right and has a splint to the right arm as well. The patient has difficulty ambulating. She usually walks with a cane and is having ambulatory issues. 09/16: Orthopedic surgery consult pending (2) Closed head injury: Code(s): S09.90XA - Unspecified injury of head, initial encounter Status: Acute Assessment and Plan: CT of the brain was negative for hemorrhage. (3) Radial fracture: Qualifiers: Encounter type: initial encounter Radius location: styloid process Fracture type: closed Fracture alignment: nondisplaced Laterality: right Qualified Code(s): S52.514A - Nondisplaced fracture of right radial styloid process, initial encounter for closed fracture Code(s): S52.90XA - Unspecified fracture of unspecified forearm, initial encounter for closed fracture Status: Acute Assessment and Plan: Patient will need to go to rehab for recovery. PT and OT have been ordered and ortho has been consulted. (4) Osteoporosis: Qualifiers: Osteoporosis type: age-related Presence of current pathological fracture: without current pathological fracture Qualified Code(s): M81.0 - Age-related osteoporosis without current pathological fracture Code(s): M81.0 - Age-related osteoporosis without current pathological fracture Status: Acute Assessment and Plan: Continue with home medications. (5) Dyslipidemia: Code(s): E78.5 - Hyperlipidemia, unspecified Status: Acute Assessment and Plan: Continue with home medications. (6) Hypertension: Qualifiers: Hypertension type: primary hypertension Qualified Code(s): I10 - Essential (primary) hypertension Code(s): I10 - Essential (primary) hypertension Status: Acute Assessment and Plan: Continue with home medication. (7) Stroke: Qualifiers: CVA mechanism: unspecified Qualified Code(s): I63.9 - Cerebral infarction, unspecified Code(s): I63.9 - Cerebral infarction, unspecified Status: Acute Assessment and Plan: Continue with home medications. (8) History of aortic valve replacement with metallic valve: Code(s): Z95.4 - Presence of other heart-valve replacement Status: Acute Assessment and Plan: Daily PT INR. Plan Awaiting rehab authorization by insurance for discharge Subjective Date/time seen: 09/16/21 18:01 Interval history: Pain controlled. No overnight events noted. No chest pain or shortness of breath. No nausea, vomiting or diarrhea. No fevers or chills. Review of Systems Review of Systems: 12 point review of systems was assessed and was negative except as noted in the HPI Exam Narrative: General: No acute distress, alert and oriented per baseline HEENT: Multiple ecchymotic lesions from her fall, normocephalic, mucous membranes moist CV: Regular rate and rhythm, S1, S2 Lungs: Clear to auscultation bilaterally, no rales or crackles noted, no wheezes, good air entry Abdomen: Soft, nontender, nondistended Extremities: Right wrist deformity status post fracture noted, left wrist and forearm in cast Skin: No rashes noted, no lesions or wounds seen Psych: Euthymic, normal affect Objective Data Vital Signs Vital Signs: Vital Signs - 24 hr 09/15/21 22:00 09/15/21 20:00 09/16/21 06:00 Temperature 98.1 F 97.9 F Pulse Rate 72 70 Respiratory Rate 16 16 Blood Pressure 114/66 113/55 L Pulse Oximetry 98 98 Oxygen Delivery Room Air 09/16/21 09:00 09/16/21 10:15 09/16/21 1
[2021-09-16 22:00] VITALS: BP 118/62; PULSE 62; RESP 14; TEMP 37.3; O2SAT 99
[2021-09-17] MEDS: oxyCODONE/ACETAMINOPHEN (*CRX) 5-325 MG TABLET 1 TABLET PO ×3 (05:42→20:23)
[2021-09-17 06:00] VITALS: BP 132/67; PULSE 61; RESP 16; TEMP 37.1; O2SAT 97
[2021-09-17 08:46] LABS: Basophils Percent Auto 0.4 % (0.2-1.2); Eosinophils Absolute Auto 0.1 K/mm3 (0-0.3); Eosinophils Percent Auto 1.7 % (0-4.4); Hematocrit 36.7 % (37.0-47.0); Immature Granulocyte Absolute 0.03 K/mm3 (0.00-0.031); Immature Granulocyte Percent A 0.4 % (0-0.5); Lymphocytes Absolute Auto 1.61 K/mm3 (0.9-3.2); Lymphocytes Percent Auto 22.2 % (18.3-44.2); Mean Corpuscular HGB Conc 32.7 g/dl (32-36); Mean Corpuscular Hemoglobin 29.9 pg (26-34); Mean Corpuscular Volume 91.3 fl (80-100); Mean Platelet Volume 9.1 fl (7.4-10.4); Monocytes Absolute Auto 0.5 K/mm3 (0.1-0.6); Monocytes Percent Auto 6.2 % (2.6-8.5); Neutrophils Percent Auto 69.1 % (45.5-73.1); Platelet Count Result 245 k/mm3 (150-375); Red Blood Count 4.02 M/mm3 (4.2-5.4); Red Cell Distribution Width 13.5 % (11.5-14.5); White Blood Count 7.2 K/mm3 (4.5-10.0)
[2021-09-17] MEDS: ATORVASTATIN 20 MG TABLET PO (08:54)
[2021-09-17] MEDS: LOSARTAN POTASSIUM 25 MG TABLET PO (08:54)
[2021-09-17 09:04] LABS: Alanine Aminotransferase 25 U/L (6-35); Albumin Level 4.4 g/dL (3.5-5.1); Alkaline Phosphatase 58 U/L (38-126); Anion Gap 5 mmol/L (8-16); Aspartate Amino Transferase 31 U/L (14-36); Bilirubin,Total 1.7 mg/dL (0.2-1.3); Blood Urea Nitrogen 16 mg/dL (7-17); Calcium 8.6 mg/dL (8.4-10.2); Carbon Dioxide 25 mmol/L (22-30); Chloride 107 mmol/L (98-107); Estimated CRCL calculation 65 ml/min; Estimated Glomerular Filt Rate > 60; Glucose 106 mg/dL (65-110); Sodium 137 mmol/L (137-145)
--- NOTE | 2021-09-17 09:41 | PM.CNOR ---
Assessment and Plan Assessment and plan (1) Fracture of metacarpal: Qualifiers: Encounter type: initial encounter Metacarpal bone: fifth Fracture type: closed Metacarpal location: other portion of metacarpal Fracture alignment: displaced Laterality: left Qualified Code(s): S62.397A - Other fracture of fifth metacarpal bone, left hand, initial encounter for closed fracture Code(s): S62.309A - Unspecified fracture of unspecified metacarpal bone, initial encounter for closed fracture Status: Acute Assessment and Plan: History, exam radiographs reviewed. Radiographs of the left hand reveal an acute fracture in the distal neck of the fifth metacarpal with palmar angulation. The fracture type and injury as well as radiographs discussed with the patient and family. Operative and nonoperative treatment options reviewed. Recommended nonoperative treatment at this time. Risk of nonunion, malunion or late displacement discussed. Stiffness, pain and possible dysfunction of the joint discussed. Fracture precautions and activity restrictions reviewed. The patient verbalizes understanding. Patient discussed fracture with Dr. Hutchinson on September [address] Hutchinson. Given significant swelling, recommend continued splint at this time. Eventual transition into a TKO splint. Patient does have difficulty with her thumb in the current position. Discussed with Dr. Hutchinson, recommended new splint. Plan to place tomorrow. Nonweightbearing left upper extremity. Pain control. Ice hand. Elevate on pillows. Transition to new splint on 09/18. (2) Radial fracture: Qualifiers: Encounter type: initial encounter Radius location: styloid process Fracture type: closed Fracture alignment: nondisplaced Laterality: right Qualified Code(s): S52.514A - Nondisplaced fracture of right radial styloid process, initial encounter for closed fracture Code(s): S52.90XA - Unspecified fracture of unspecified forearm, initial encounter for closed fracture Status: Acute Assessment and Plan: Patient is already under the care of Dr. Stapleton for her right wrist fracture. She can continue to follow with him as an outpatient. Per Dr. Hutchinson, Dr. Stapleton aware of patient's [place] for [place] [facility] Plan Reviewed assessment, splint concerns, radiographs and current plan of care with attending physician and consulted surgeon, Dr. Hutchinson. No further recommendations at this time. Agrees with current plan of care. History of Present Illness HPI Consult date: 09/17/21 Chief complaint: Fall, L hand FX Narrative: 70-year-old female admitted after a fall. Patient has had several falls over the last 2 months. She was most recently treated by Dr. Stapleton. for right wrist fracture. She does have significant stiffness in the right wrist is still following with Dr. Stapleton. Patient states that she has been clumsy ever since she was found to have had a stroke. She does see a neurologist at [facility]. She suffers from weakness with her gait, difficulties with balance and slurred speech. She was set to have an appointment with her neurologist today. She had a fall at home yesterday which resulted in contusion to the periorbital and nasal area as well as a significant left dorsal hematoma and hand pain. Radiographs of the left hand were obtained which reveal an acute fracture of the distal neck of the 5th metacarpal with palmar angulation. All other imaging negative for acute injury. Orthopedic consult requested. Review of Systems Review of Systems: All systems reviewed & are unremarkable except as noted in HPI and below Constitutional: Constitutional: Reports as per HPI and Reports no additional constitutional complaints Eyes: Eyes: Reports as per HPI and Reports no additional eye complaints ENT: Reports system reviewed and no additional complaints, except as documented and Reports Normal hearing present Cardiovascular: Cardiovascular: Rep
[2021-09-17 11:07] LABS: INR 4.8; Prothrombin Time 43.3 Seconds (11.1-14.7)
[2021-09-17 14:00] VITALS: BP 127/59; PULSE 65; RESP 16; TEMP 36.3; O2SAT 95
[2021-09-17] MEDS: WARFARIN (*PBKC) 5 MG TABLET PO (16:24)
[2021-09-17] MEDS: LIDOCAINE 5% PATCH 1 PATCH TRANSDERM (18:42)
--- NOTE | 2021-09-17 19:06 | PM.IMPN ---
Progress Note: A&P Assessment and Plan (1) Fracture, metacarpal: Code(s): S62.309A - Unspecified fracture of unspecified metacarpal bone, initial encounter for closed fracture Status: Acute Assessment and Plan: Ortho was consulted per ED provider. However the patient will need to be placed inpatient rehab for therapy. PT and OT evaluation has been ordered. Patient has a radial fracture to the right and has a splint to the right arm as well. The patient has difficulty ambulating. She usually walks with a cane and is having ambulatory issues. 09/16: Orthopedic surgery consult pending 09/17: Orthopedic surgery recommending non operative care with eventual transition to a TKO splint that will be placed tomorrow (2) Closed head injury: Code(s): S09.90XA - Unspecified injury of head, initial encounter Status: Acute Assessment and Plan: CT of the brain was negative for hemorrhage. (3) Radial fracture: Qualifiers: Encounter type: initial encounter Radius location: styloid process Fracture type: closed Fracture alignment: nondisplaced Laterality: right Qualified Code(s): S52.514A - Nondisplaced fracture of right radial styloid process, initial encounter for closed fracture Code(s): S52.90XA - Unspecified fracture of unspecified forearm, initial encounter for closed fracture Status: Acute Assessment and Plan: Patient will need to go to rehab for recovery. PT and OT have been ordered and ortho has been consulted. (4) Osteoporosis: Qualifiers: Osteoporosis type: age-related Presence of current pathological fracture: without current pathological fracture Qualified Code(s): M81.0 - Age-related osteoporosis without current pathological fracture Code(s): M81.0 - Age-related osteoporosis without current pathological fracture Status: Acute Assessment and Plan: Continue with home medications. (5) Dyslipidemia: Code(s): E78.5 - Hyperlipidemia, unspecified Status: Acute Assessment and Plan: Continue with home medications. (6) Hypertension: Qualifiers: Hypertension type: primary hypertension Qualified Code(s): I10 - Essential (primary) hypertension Code(s): I10 - Essential (primary) hypertension Status: Acute Assessment and Plan: Continue with home medication. (7) Stroke: Qualifiers: CVA mechanism: unspecified Qualified Code(s): I63.9 - Cerebral infarction, unspecified Code(s): I63.9 - Cerebral infarction, unspecified Status: Acute Assessment and Plan: Continue with home medications. (8) History of aortic valve replacement with metallic valve: Code(s): Z95.4 - Presence of other heart-valve replacement Status: Acute Assessment and Plan: Daily PT INR 09/17: INR 4.8 today, will give half dose Coumadin recheck tomorrow, anticipated to go a little higher tomorrow he eventually come back down, goal of 2.5-3.5 due to history of mechanical aortic valve Plan Awaiting rehab authorization by insurance for discharge Subjective Date/time seen: 09/17/21 19:06 Interval history: Patient sitting up in chair eating breakfast. No overnight events noted. No chest pain or shortness of breath. No nausea, vomiting or diarrhea. No fevers or chills. Review of Systems Review of Systems: 12 point review of systems was assessed and was negative except as noted in the HPI Exam Narrative: General: No acute distress, alert and oriented per baseline HEENT: Multiple ecchymotic lesions from her fall, normocephalic, mucous membranes moist CV: Regular rate and rhythm, S1, S2 Lungs: Clear to auscultation bilaterally, no rales or crackles noted, no wheezes, good air entry Abdomen: Soft, nontender, nondistended Extremities: Right wrist deformity status post fracture noted, left wrist and forearm in cast Skin: No rashes noted, no lesions or wounds seen
[2021-09-17 22:00] VITALS: BP 116/50; PULSE 66; RESP 18; TEMP 36.3; O2SAT 97
[2021-09-18] MEDS: oxyCODONE/ACETAMINOPHEN (*CRX) 5-325 MG TABLET 1 TABLET PO ×2 (05:59→20:37)
[2021-09-18 06:00] VITALS: BP 144/58; PULSE 64; RESP 18; TEMP 35.9; O2SAT 99
[2021-09-18 06:22] LABS: Basophils Percent Auto 0.5 % (0.2-1.2); Eosinophils Absolute Auto 0.2 K/mm3 (0-0.3); Eosinophils Percent Auto 2.8 % (0-4.4); Hematocrit 33.4 % (37.0-47.0); Hemoglobin 10.9 g/dL (12.0-15.0); Immature Granulocyte Absolute 0.02 K/mm3 (0.00-0.031); Immature Granulocyte Percent A 0.3 % (0-0.5); Lymphocytes Absolute Auto 1.46 K/mm3 (0.9-3.2); Mean Corpuscular HGB Conc 32.6 g/dl (32-36); Mean Corpuscular Hemoglobin 30.2 pg (26-34); Mean Corpuscular Volume 92.5 fl (80-100); Mean Platelet Volume 9.8 fl (7.4-10.4); Monocytes Absolute Auto 0.4 K/mm3 (0.1-0.6); Monocytes Percent Auto 7.2 % (2.6-8.5); Neutrophils Percent Auto 65.2 % (45.5-73.1); Platelet Count Result 203 k/mm3 (150-375); Red Blood Count 3.61 M/mm3 (4.2-5.4); Red Cell Distribution Width 13.4 % (11.5-14.5); White Blood Count 6.1 K/mm3 (4.5-10.0)
[2021-09-18 06:38] LABS: Alanine Aminotransferase 21 U/L (6-35); Albumin Level 3.8 g/dL (3.5-5.1); Alkaline Phosphatase 50 U/L (38-126); Anion Gap 3 mmol/L (8-16); Aspartate Amino Transferase 25 U/L (14-36); Bilirubin,Total 1.2 mg/dL (0.2-1.3); Blood Urea Nitrogen 20 mg/dL (7-17); Calcium 8.3 mg/dL (8.4-10.2); Carbon Dioxide 26 mmol/L (22-30); Chloride 108 mmol/L (98-107); Estimated CRCL calculation 65 ml/min; Estimated Glomerular Filt Rate > 60; Glucose 88 mg/dL (65-110); Sodium 137 mmol/L (137-145)
--- NOTE | 2021-09-18 07:30 | PC.NURSE ---
[address] Watkins regarding cast removal, states that Dr. Hutchinson will remove cast today. Informed that fingers are edematous and blueish in color, a small amount of blood is on cast, states that pt has a hematoma. Informed that hand is elevated , ice applied, pt can move all fingers.
[2021-09-18] MEDS: ATORVASTATIN 20 MG TABLET PO (10:03)
[2021-09-18] MEDS: LOSARTAN POTASSIUM 25 MG TABLET PO (10:03)
[2021-09-18] MEDS: LIDOCAINE 5% PATCH 1 PATCH TRANSDERM (10:03)
[2021-09-18 11:18] LABS: INR 4.5; Prothrombin Time 41.4 Seconds (11.1-14.7)
--- NOTE | 2021-09-18 12:55 | PCOTNOTE ---
Attempted to see patient for OT, patient eating lunch and declined at this time. Assisted patient with lunch setup to open containers due to decreased FMC secondary to BUE fxs. Patient observed to be tearful upon this therapist entering room -patient reports feeling overwhelmed. Patient c/o of numbness, discolored fingers, and 7/10 pain in LUE. Patient's cast appeared to be bloody and upset about MD not removing/changing cast to LUE, per patient was to occur yesterday and has not yet been changed. Patient's RN notified and aware and had no information to give to patient about MD removing cast. Patient able to be consoled by therapist. Patient not seen for OT.
[2021-09-18 14:00] VITALS: BP 144/63; PULSE 87; RESP 14; TEMP 36.6; O2SAT 98
--- NOTE | 2021-09-18 16:30 | PM.IMPN ---
Progress Note: A&P Assessment and Plan (1) Fracture, metacarpal: Code(s): S62.309A - Unspecified fracture of unspecified metacarpal bone, initial encounter for closed fracture Status: Acute Assessment and Plan: Ortho was consulted per ED provider. However the patient will need to be placed inpatient rehab for therapy. PT and OT evaluation has been ordered. Patient has a radial fracture to the right and has a splint to the right arm as well. The patient has difficulty ambulating. She usually walks with a cane and is having ambulatory issues. 09/16: Orthopedic surgery consult pending 09/17: Orthopedic surgery recommending non operative care with eventual transition to a TKO splint that will be placed tomorrow 09/18: Non operative care, likely will be stable for discharge to SNF after splint is placed (2) Closed head injury: Code(s): S09.90XA - Unspecified injury of head, initial encounter Status: Acute Assessment and Plan: CT of the brain was negative for hemorrhage. (3) Radial fracture: Qualifiers: Encounter type: initial encounter Radius location: styloid process Fracture type: closed Fracture alignment: nondisplaced Laterality: right Qualified Code(s): S52.514A - Nondisplaced fracture of right radial styloid process, initial encounter for closed fracture Code(s): S52.90XA - Unspecified fracture of unspecified forearm, initial encounter for closed fracture Status: Acute Assessment and Plan: Patient will need to go to rehab for recovery. PT and OT have been ordered and ortho has been consulted. (4) Osteoporosis: Qualifiers: Osteoporosis type: age-related Presence of current pathological fracture: without current pathological fracture Qualified Code(s): M81.0 - Age-related osteoporosis without current pathological fracture Code(s): M81.0 - Age-related osteoporosis without current pathological fracture Status: Acute Assessment and Plan: Continue with home medications. (5) Dyslipidemia: Code(s): E78.5 - Hyperlipidemia, unspecified Status: Acute Assessment and Plan: Continue with home medications. (6) Hypertension: Qualifiers: Hypertension type: primary hypertension Qualified Code(s): I10 - Essential (primary) hypertension Code(s): I10 - Essential (primary) hypertension Status: Acute Assessment and Plan: Continue with home medication. (7) Stroke: Qualifiers: CVA mechanism: unspecified Qualified Code(s): I63.9 - Cerebral infarction, unspecified Code(s): I63.9 - Cerebral infarction, unspecified Status: Acute Assessment and Plan: Continue with home medications. (8) History of aortic valve replacement with metallic valve: Code(s): Z95.4 - Presence of other heart-valve replacement Status: Acute Assessment and Plan: Daily PT INR 09/17: INR 4.8 today, will give half dose Coumadin 5 mg (usually 10 mg) recheck tomorrow, anticipated to go a little higher tomorrow he eventually come back down, goal of 2.5-3.5 due to history of mechanical aortic valve 09/18: INR 4.5 today, restart Coumadin 10 mg daily, recheck INR tomorrow, d/c extra 2.5 mg coumadin every other day Plan Awaiting rehab authorization by insurance for discharge Subjective Date/time seen: 09/18/21 16:30 Review of Systems Review of Systems: 12 point review of systems was assessed and was negative except as noted in the HPI Exam Narrative: General: No acute distress, alert and oriented per baseline HEENT: Atraumatic, normocephalic, mucous membranes moist CV: Regular rate and rhythm, S1, S2 Lungs: Clear to auscultation bilaterally, no rales or crackles noted, no wheezes, good air entry Abdomen: Soft, nontender, nondistended Extremities: Normal to inspection Skin: No rashes noted, no lesions or wounds seen Psych: Euthymic, normal affect Objective Data
[2021-09-18] MEDS: WARFARIN (*PBKC) 5 MG TABLET PO (16:35)
--- NOTE | 2021-09-18 16:47 | PM.DS ---
DS: Admitting Diagnosis Discharge Date September 19, 2021 Admitting Diagnosis Status post fall DS: Discharge Diagnosis Discharge Diagnosis (1) Fracture, metacarpal: Code(s): S62.309A - Unspecified fracture of unspecified metacarpal bone, initial encounter for closed fracture Status: Acute Assessment and Plan: Ortho was consulted per ED provider. However the patient will need to be placed inpatient rehab for therapy. PT and OT evaluation has been ordered. Patient has a radial fracture to the right and has a splint to the right arm as well. The patient has difficulty ambulating. She usually walks with a cane and is having ambulatory issues. 09/16: Orthopedic surgery consult pending 09/17: Orthopedic surgery recommending non operative care with eventual transition to a TKO splint that will be placed tomorrow 09/18: Non operative care, likely will be stable for discharge to SNF after splint is placed (2) Closed head injury: Code(s): S09.90XA - Unspecified injury of head, initial encounter Status: Acute Assessment and Plan: CT of the brain was negative for hemorrhage. (3) Radial fracture: Qualifiers: Encounter type: initial encounter Fracture alignment: nondisplaced Fracture type: closed Laterality: right Radius location: styloid process Qualified Code(s): S52.514A - Nondisplaced fracture of right radial styloid process, initial encounter for closed fracture Code(s): S52.90XA - Unspecified fracture of unspecified forearm, initial encounter for closed fracture Status: Acute Assessment and Plan: Patient will need to go to rehab for recovery. PT and OT have been ordered and ortho has been consulted. (4) Osteoporosis: Qualifiers: Osteoporosis type: age-related Presence of current pathological fracture: without current pathological fracture Qualified Code(s): M81.0 - Age-related osteoporosis without current pathological fracture Code(s): M81.0 - Age-related osteoporosis without current pathological fracture Status: Acute Assessment and Plan: Continue with home medications. (5) Dyslipidemia: Code(s): E78.5 - Hyperlipidemia, unspecified Status: Acute Assessment and Plan: Continue with home medications. (6) Hypertension: Qualifiers: Hypertension type: primary hypertension Qualified Code(s): I10 - Essential (primary) hypertension Code(s): I10 - Essential (primary) hypertension Status: Acute Assessment and Plan: Continue with home medication. (7) Stroke: Qualifiers: CVA mechanism: unspecified Qualified Code(s): I63.9 - Cerebral infarction, unspecified Code(s): I63.9 - Cerebral infarction, unspecified Status: Acute Assessment and Plan: Continue with home medications. (8) History of aortic valve replacement with metallic valve: Code(s): Z95.4 - Presence of other heart-valve replacement Status: Acute Assessment and Plan: Daily PT INR 09/17: INR 4.8 today, will give half dose Coumadin 5 mg (usually 10 mg) recheck tomorrow, anticipated to go a little higher tomorrow he eventually come back down, goal of 2.5-3.5 due to history of mechanical aortic valve 09/18: INR 4.5 today, restart Coumadin 10 mg daily, recheck INR tomorrow, d/c extra 2.5 mg coumadin every other day Plan Awaiting rehab authorization by insurance for discharge DS: Summary Hospital Course Hospital Course: See above Time Spent with Patient Time attestation: Total time spent providing and/or coordinating discharge services: Exam Narrative: General: No acute distress, alert and oriented per baseline HEENT: Atraumatic, normocephalic, mucous membranes moist CV: Regular rate and rhythm, S1, S2 Lungs: Clear to auscultation bilaterally, no rales or crackles noted, no wheezes, good air entry Abdomen: Soft, nontender, nondistended Extremities: Normal to inspection Ski
[2021-09-18 22:00] VITALS: BP 137/60; PULSE 64; RESP 18; TEMP 36.7; O2SAT 96
[2021-09-19 05:42] VITALS: BP 146/61; PULSE 59; RESP 18; TEMP 36.7; O2SAT 100
[2021-09-19] MEDS: oxyCODONE/ACETAMINOPHEN (*CRX) 5-325 MG TABLET 1 TABLET PO (06:47)
[2021-09-19 06:57] LABS: Basophils Percent Auto 0.5 % (0.2-1.2); Eosinophils Absolute Auto 0.1 K/mm3 (0-0.3); Eosinophils Percent Auto 2.1 % (0-4.4); Hematocrit 33.6 % (37.0-47.0); Hemoglobin 11.5 g/dL (12.0-15.0); Immature Granulocyte Absolute 0.03 K/mm3 (0.00-0.031); Immature Granulocyte Percent A 0.5 % (0-0.5); Lymphocytes Absolute Auto 1.48 K/mm3 (0.9-3.2); Lymphocytes Percent Auto 23.9 % (18.3-44.2); Mean Corpuscular HGB Conc 34.2 g/dl (32-36); Mean Corpuscular Hemoglobin 30.7 pg (26-34); Mean Corpuscular Volume 89.6 fl (80-100); Mean Platelet Volume 9.3 fl (7.4-10.4); Monocytes Absolute Auto 0.5 K/mm3 (0.1-0.6); Monocytes Percent Auto 8.6 % (2.6-8.5); Neutrophils Percent Auto 64.4 % (45.5-73.1); Platelet Count Result 223 k/mm3 (150-375); Red Blood Count 3.75 M/mm3 (4.2-5.4); Red Cell Distribution Width 13.4 % (11.5-14.5); White Blood Count 6.2 K/mm3 (4.5-10.0)
[2021-09-19 07:13] LABS: Alanine Aminotransferase 20 U/L (6-35); Alkaline Phosphatase 54 U/L (38-126); Anion Gap 5 mmol/L (8-16); Aspartate Amino Transferase 26 U/L (14-36); Bilirubin,Total 1.6 mg/dL (0.2-1.3); Blood Urea Nitrogen 14 mg/dL (7-17); Calcium 8.8 mg/dL (8.4-10.2); Carbon Dioxide 26 mmol/L (22-30); Chloride 106 mmol/L (98-107); Estimated CRCL calculation 76 ml/min; Estimated Glomerular Filt Rate > 60; Glucose 92 mg/dL (65-110); Sodium 137 mmol/L (137-145)
[2021-09-19 07:31] LABS: Prothrombin Time 44.9 Seconds (11.1-14.7)
[2021-09-19] MEDS: LOSARTAN POTASSIUM 25 MG TABLET PO (08:39)
[2021-09-19] MEDS: LIDOCAINE 5% PATCH 1 PATCH TRANSDERM (08:39)
[2021-09-19] MEDS: ATORVASTATIN 20 MG TABLET PO (08:39)
[2021-09-19 09:08] LABS: EDCOVIDSCREEN Negative (Negative)
[2021-09-19 14:00] VITALS: BP 133/73; PULSE 67; RESP 16; TEMP 36.4; O2SAT 99
--- NOTE | 2021-09-20 12:25 | PC.NURSE ---
Facility called stated never received a script for pain medication at discharge. This nurse attempted to call facility to discuss medications but no staff answered.
--- NOTE | 2021-09-21 17:12 | PM.PNORT ---
Progress Note: A&P Assessment and Plan (1) Fracture of metacarpal: Qualifiers: Encounter type: initial encounter Fracture alignment: displaced Fracture type: closed Laterality: left Metacarpal bone: fifth Metacarpal location: other portion of metacarpal Qualified Code(s): S62.397A - Other fracture of fifth metacarpal bone, left hand, initial encounter for closed fracture Code(s): S62.309A - Unspecified fracture of unspecified metacarpal bone, initial encounter for closed fracture Status: Acute Assessment and Plan: S/P LEFT 5TH METACARPAL FRACTURE. NEW SPLINT APPLIED TODAY. RECOMMEND CONTINUE IMMOBILIZATION FOR 4 WEEKS TOTAL. SHE WILL F/U IN MY OFFICE AT THAT TIME. Subjective Subjective Date/Time Seen: 09/18/21 AT 3:00 PM LEFT 5TH METACARPAL FRACTURE IN SPLINT. SPLINT IS CAUSING A LOT OF THUMB PAIN. IT ALSO IS CAUSING SOME PAIN ON THE DORSUM OF HER HAND, NO OTHER COMPLAINTS. Exam Extrem: Other: LEFT HAND IN SPLINT. SPLINT WAS REMOVED. THERE IS A SUPERFICIAL LACERATION OVER THE 4 WEB SPACE DORSALLY. THERE IS NO EXPOSED BONE. NV INTACT TENDONS ARE INTACT. THERE IS SOME EXPECTED DISCOLORATION TO THE FINGERS CONSIST WITH ECCHYMOSIS. CAPILLARY REFILL IS BRISK. FINGER TIPS ARE PINK AND WARM. NO ROTATIONAL DEFORMITY WITH FINGER FLEXION. WOUND WAS CLEANED WITH H2O2 AND WATER AND STERILE DRESSING APPLIED, INTRINSIC HAND PLASTER SPLINT APPLIED. Objective Data Intake/Output Intake/Output: Intake & Output 09/18/21 09/19/21 09/20/21 09/21/21 23:59 23:59 23:59 23:59 Intake Total 1360 712 Output Total 2250 Balance -890 712 Meds/Results Radiology Results: ITS Impressions Head CT 09/15/21 10:21 IMPRESSION: 1. No acute intracranial abnormality. 2. Age related findings. Cervical Spine CT 09/15/21 10:30 IMPRESSION: 1. Mild cervical spondylosis without acute findings or significant interval change. Hand X-Ray 09/15/21 11:16 IMPRESSION: 1. Acute fracture in the distal neck of the fifth metacarpal with palmar angulation. Quality VTE Prophylaxis VTE prophylaxis: pharmacologic ordered Fracture/Casting/Strapping Episode of Care New episode Fracture Care Carpals/phalangeal Carpals, Phalangeal: CLOSED TX METACARPAL FX W/ MANIPULATION Splinting Comments:: SHORT ARM PLASTER SPLINT Application Swelling: Yes and Tenderness: Yes Skin Apperance: Erythematous Care: Alcohol Wipes and Saline Patient Tolerated Procedure Well: Yes Post Procedure Comment: YES
== END 2021-09-19 15:53 ==
LOC: ANHED 13:05 → ANH3MEDSUR 14:39
PROVIDERS: Nurse Practitioner; Admitting Provider Student in an Organized Health Care Education/Training Program; Emergency Provider Emergency Medicine; PCP Internal Medicine; Visit Provider Student in an Organized Health Care Education/Training Program
DX: S62.337A Displaced fracture of neck of fifth metacarpal bone, left hand, initial encounter for closed fracture (principal); S09.90XA Unspecified injury of head, initial encounter; R26.81 Unsteadiness on feet; W01.0XXA Fall on same level from slipping, tripping and stumbling without subsequent striking against object, initial encounter; S52.514D Nondisplaced fracture of right radial styloid process, subsequent encounter for closed fracture with routine healing; W19.XXXD Unspecified fall, subsequent encounter; R29.6 Repeated falls; I10 Essential (primary) hypertension; E55.9 Vitamin D deficiency, unspecified; M81.0 Age-related osteoporosis without current pathological fracture; E78.5 Hyperlipidemia, unspecified; N32.81 Overactive bladder; Z79.01 Long term (current) use of anticoagulants; Z86.718 Personal history of other venous thrombosis and embolism; Z87.891 Personal history of nicotine dependence; Z86.73 Personal history of transient ischemic attack (TIA), and cerebral infarction without residual deficits; Z95.2 Presence of prosthetic heart valve; Z20.822 Contact with and (suspected) exposure to COVID-19
CPT/HCPCS: 26605; 36415; 70450; 72125; 73130; 80048; 80053; 85025; 85610; 87426; 97110; 97112; 97116; 97161; 97166; 97530; 97535; 99285; A9270; C9803; G0378; U0003; U0005

== ENCOUNTER 2022-02-13 12:54 | Outpatient (CLI) | payer MEDICARE, SELFPAY ==
--- NOTE | ~2022-02-13 | MM_ITS ---
EXAMINATION: MM screening [facility] BI w maia HISTORY: Screening mammogram TECHNIQUE: Craniocaudal and mediolateral oblique 3-D tomosynthesis images were obtained and synthetic 2-D images were generated. CAD analysis was submitted and interpreted. COMPARISON: 01/29/2021, 02/15/2020 BREAST PARENCHYMAL COMPOSITION: The breasts are heterogeneously dense, which may obscure small masses . FINDINGS: RIGHT BREAST: No suspicious mass, calcification, or architectural distortion are identified to sugges t malignancy. There has been no suspicious interval change. LEFT BREAST: An asymmetry is present in the middle third of the breast 5.5 cm from the nipple on the mediolateral oblique view. IMPRESSION: 1. Left breast asymmetry. 2. Additional mammographic views and possible breast ultrasound are recommended. BI-RADS Category 0: Incomplete: Needs additional imaging evaluation. Reviewed, dictated and finalized at location A. RITY MOTHER IMPRESSION: 1. Left breast asymmetry. 2. Additional mammographic views and possible breast ultrasound are recommended . BI-RADS Category 0: Incomplete: Needs additional imaging evaluation.
== END 2022-02-13 12:55 | disposition home or self-care (01) ==
PROVIDERS: PCP Internal Medicine; Visit Provider Internal Medicine
DX: Z12.31 Encounter for screening mammogram for malignant neoplasm of breast (principal); R92.8 Other abnormal and inconclusive findings on diagnostic imaging of breast
CPT/HCPCS: 77063; 77067

== ENCOUNTER 2022-03-09 11:31 | Outpatient (CLI) | payer MEDICARE, SELFPAY ==
--- NOTE | ~2022-03-09 | MMUS_ITS ---
EXAMINATION: MM diagnostic mata LT w maia, US breast LT limited HISTORY: Left breast mammographic asymmetry on 02/13/2022 screening mammogram examination TECHNIQUE: Additional 3-D tomosynthesis images of the left breast were performed and synthetic 2-D im ages were generated. CAD analysis was submitted and interpreted. High resolution upper outer quadrant left breast ultrasound was performed. COMPARISON: FINDINGS: MAMMOGRAPHIC FINDINGS: No suspicious mass or architectural distortion, malignant calcification, skin thickening or retractio n is detected. ULTRASOUND: No suspicious mass or shadowing is noted in the upper outer quadrant of the left breast. IMPRESSION: 1. No mammographic evidence of malignancy 2. Routine annual mammographic screening is recommended. BI-RADS Category 1: Negative Reviewed, dictated and finalized at location A. EL PLATER IMPRESSION: 1. No mammographic evidence of malignancy 2. Routine annual mammographic screening is recommended. BI-RADS Category 1: Negative
== END 2022-03-09 11:32 | disposition home or self-care (01) ==
PROVIDERS: PCP Internal Medicine; Visit Provider Internal Medicine
DX: R92.8 Other abnormal and inconclusive findings on diagnostic imaging of breast (principal)
CPT/HCPCS: 76642; 77061; 77065; G0279

== ENCOUNTER 2022-07-21 10:56 | Outpatient (CLI) | payer MEDICARE, SELFPAY ==
--- NOTE | ~2022-07-21 | XR_ITS ---
EXAMINATION: XR barium swallow modified DATE: 07/21/2022 12:01 INDICATION: Coughing and choking with feeding TECHNIQUE: Modified barium esophagram was performed by myself who administered fluoroscopy, in conju nction with speech pathologist who administered barium in varying consistencies as per speech patholo gist documentation. This was recorded on tape. A single fluoroscopic spot image was recorded. Fluoros copy exposure time was 2.5 minutes. The DAP for this procedure was 1.456 Gycm2. FINDINGS: Oral stage: Adequate function. Pharyngeal phase: Adequate function. Laryngeal penetration: None. Aspiration: None. Laryngeal sensitivity: Not applicable. IMPRESSION: Unremarkable modified barium swallow. Please refer to speech pathologist findings and spe [facility] feeding recommendations. Reviewed, dictated and finalized at location A. IMPRESSION: Unremarkable modified barium swallow. Please refer to speech pathol ogist findings and specific feeding recommendations.
--- NOTE | 2022-07-21 12:17 | REHSTMBS ---
Assessment and note entered by Radha Daniel, COMPLETION MANAGER Modified Barium Swallow Evaluation Feeding Type Recommended Oral Food Consistency Soft and Bite Size, Level Liquid Consistency Thin (0) Treatment Recommendations Laryngeal Elevation Exerc,Tongue Base Exercise, Vocal Fold Adduction Exer ST Clinical Summary MODIFIED BARIUM SWALLOW STUDY (MBS) Rajan patient was seen for a Modified Barium Swallow study secondary to her complaints of choking on both food and liquid and even her own saliva at times. Patient reports she has had several strokes in the past and has had Speech Therapy for her speech but not her swallowing. She reports she feels that her swallowing issues have worsened over time and she is very concerned. Additionally, she reports she still feels that her speech is not as intelligible as she would like, that occasionally people have to ask her to repeat what she has said. Patient was viewed in an upright, lateral position to the level of C5/C6. She was presented with graduated amounts of thin liquid contrast medium, then pudding mixed with semi-solid contrast medium , and fruit pieces and cracker pieces coated with the semi-solid contrast medium. In general, patient's swallowing skills were grossly within normal limits, with no evidence of penetration or aspiration noted. She did clear her throat after swallowing the lori crackers consistency however there was no evidence of material in the airway. Patient was instructed in the use of head flexion, chin tuck during the swallow, to assist with swallowing all consistencies at home. Speech Therapy is recommended secondary to patient 's complaints to instruct her in the use of additional safe swallowing strategies, diet modifications which may be beneficial, and also strengthening exercises to improve the strength of her swallows in order to prevent any further issues when eating independently. Speech intelligibility and vocal loudness may be addressed at this time as strengthening those
== END 2022-07-21 10:57 | disposition home or self-care (01) ==
LOC: ANHIMG 10:58
PROVIDERS: PCP Internal Medicine; Visit Provider Nurse Practitioner
DX: R13.10 Dysphagia, unspecified (principal)
CPT/HCPCS: 92611

== ENCOUNTER 2022-09-02 08:53 | Outpatient (CLI) | payer MEDICARE, SELFPAY ==
[2022-09-02 09:40] LABS: Appearance Urine Clear (Clear); Bacteria Urine None Seen /hpf; Bilirubin Urine Negative (Negative); Blood Urine Trace (Negative); Color Urine Dark Yellow (Yellow); Glucose Urine UA Negative (Negative); Ketones Urine Trace mg/dL (Negative); Leukocyte Esterase Ur 1+ LEU/UL (Negative); Nitrate Urine Negative (Negative); Non Pathogenic Casts 0-2; Protein Urine Negative (Negative); Squamous Epithelial Cell Urine Occasional /hpf (Few); WBC Urine 21-50 /hpf; pH Urine 5.5 (5.0-9.0)
[2022-09-02 09:45] LABS: Add Urine Microscopic? YES
--- NOTE | 2022-09-02 11:15 | NEURO_ITS ---
Impression: Patient reports a history of balance issues and weakness in all extremities. # Mild left Carpal Tunnel Syndrome. # Normal needle/EMG. # Clinical correlation recommended. Nerve Conduction Studies Anti Sensory Summary Table Stim Site NR Peak (ms) P-T Amp (?V) Site1 Site2 Delta-P (ms) Dist (cm) Glen (m/s) Left Median Anti Sensory (2-3nd Digit) Wrist 3.8 69.0 Wrist 2-3nd Digit 3.8 14.0 37 Wrist 4.3 67.7 Wrist 2-3nd Digit 3.8 14.0 37 Right Median Anti Sensory (2-3nd Digit) Wrist 3.3 43.1 Wrist 2-3nd Digit 3.3 14.0 42 Wrist 3.6 54.0 Wrist 2-3nd Digit 3.3 14.0 42 Left Radial Anti Sensory (Base 1st Digit) Wrist 2.1 16.3 Wrist Base 1st Digit 2.1 0.0 Right Radial Anti Sensory (Base 1st Digit) Wrist 2.6 18.4 Wrist Base 1st Digit 2.6 0.0 Left Sup Fibular Anti Sensory (Ant Lat Mall) 14 cm 3.6 13.0 14 cm Ant Lat Mall 3.6 16.0 44 Right Sup Fibular Anti Sensory (Ant Lat Mall) 14 cm 3.9 20.9 14 cm Ant Lat Mall 3.9 16.0 41 Left Sural Anti Sensory (Lat Mall) Calf 3.8 12.5 Calf Lat Mall 3.8 16.0 42 Right Sural Anti Sensory (Lat Mall) Calf 3.4 15.4 Calf Lat Mall 3.4 16.0 47 Left Ulnar Anti Sensory (5th Digit) Wrist 3.0 46.5 Wrist 5th Digit 3.0 14.0 47 Right Ulnar Anti Sensory (5th Digit) Wrist 3.0 35.7 Wrist 5th Digit 3.0 14.0 47 Motor Summary Table Stim Site NR Onset (ms) O-P Amp (mV) Site1 Site2 Delta-0 (ms) Dist (cm) Glen (m/s) Left Median Motor (Abd Poll Brev) Wrist 4.0 2.7 Elbow Wrist 3.7 21.0 57 Elbow 7.7 2.6 Right Median Motor (Abd Poll Brev) Wrist 3.8 3.7 Elbow Wrist 3.7 22.0 59 Elbow 7.5 2.7 Left Peroneal Motor (Vastus Med) Ankle 4.8 2.2 Popit Ankle 8.6 39.0 45 Popit 13.4 2.0 B Fib Ankle 6.8 29.0 43 B Fib 11.6 1.8 Right Peroneal Motor (Vastus Med) Ankle 4.5 2.6 Popit Ankle 9.1 39.0 43 Popit 13.6 1.8 B Fib Ankle 6.9 29.0 42 B Fib 11.4 2.7 Left Tibial Motor (Abd Contreras Brev) Ankle 4.5 5.6 Knee Ankle 9.2 41.0 45 Knee 13.7 3.4 Right Tibial Motor (Abd Contreras Brev) Ankle 4.5 7.3 Knee Ankle 8.7 39.0 45 Knee 13.2 5.2 Left Ulnar Motor (Abd Dig Minimi) Wrist 2.8 7.4 A Elbow Wrist 5.1 28.0 55 A Elbow 7.9 5.4 B Elbow Wrist 3.5 20.0 57 B Elbow 6.3 6.2 Right Ulnar Motor (Abd Dig Minimi) Wrist 2.8 7.4 A Elbow Wrist 5.5 29.0 53 A Elbow 8.3 6.2 B Elbow Wrist 3.5 19.0 54 B Elbow 6.3 6.6 F Wave Studies NR F-Lat (ms) L-R F-Lat (ms) Left Median (Mrkrs) (Abd Poll Brev) 27.75 0.16 Right Median (Mrkrs) (Abd Poll Brev) 27.91 0.16 Left Peroneal (Mrkrs) (EDB) 54.96 0.25 Right Peroneal (Mrkrs) (EDB) 55.20 0.25 Left Tibial (Mrkrs) (Abd Hallucis) 53.95 0.58 Right Tibial (Mrkrs) (Abd Hallucis) 54.53 0.58 Left Ulnar (Mrkrs) (Abd Dig Min) 27.48 0.66 Right Ulnar (Mrkrs) (Abd Dig Min) 26.82 0.66 EMG Side Muscle Nerve Root Ins Act Fibs Amp Dur Recrt Comment Right 1stDorInt Ulnar C8-T1 Nml Nml Nml Nml Nml Right Ext Indicis Radial (Post Int) C7-8 Nml Nml Nml Nml Nml Right Ext Digitorum Radial (Post Int) C7-8 Nml Nml Nml Nml Nml Right BrachioRad Radial C5-6 Nml Nml Nml Nml Nml Right PronatorTeres Median C6-7
== END 2022-09-02 08:54 | disposition home or self-care (01) ==
PROVIDERS: PCP Nurse Practitioner; Visit Provider Student in an Organized Health Care Education/Training Program
DX: R20.2 Paresthesia of skin (principal); R39.9 Unspecified symptoms and signs involving the genitourinary system
CPT/HCPCS: 81001; 87077; 87086; 87186; 95886; 95913

== ENCOUNTER 2022-11-14 09:42 | Outpatient (CLI) | payer MEDICARE, SELFPAY ==
--- NOTE | ~2022-11-14 | MR_ITS ---
MRI of the brain Clinical History: Dysphagia, balance issues Technique: Axial and sagittal T1-weighted images were acquired. These were followed by axial T2-weigh steffanie, diffusion weighted, gradient, and FLAIR images. COMPARISON: 09/03/2020 Findings: There is no acute infarct, acute intracranial hemorrhage, or mass lesion. There are moderat e to severe chronic white matter changes in the periventricular white matter bilaterally. Ventricles and subarachnoid spaces are minimally dilated. Orbits are unremarkable. There is right max illary sinus disease. Remaining paranasal sinuses and mastoid air cells are clear. Major intracranial flow voids are intact. Sagittal midline structures are intact. IMPRESSION: No acute intracranial hemorrhage, acute infarct or mass lesion. Moderate to severe chronic microvascular ischemic change. Right maxillary sinus disease. Reviewed, dictated and finalized at [facility].
== END 2022-11-14 09:43 | disposition home or self-care (01) ==
PROVIDERS: PCP Nurse Practitioner; Visit Provider Student in an Organized Health Care Education/Training Program
DX: R53.1 Weakness (principal); R47.1 Dysarthria and anarthria; R13.10 Dysphagia, unspecified; J32.0 Chronic maxillary sinusitis
CPT/HCPCS: 70551

== ENCOUNTER 2022-12-21 14:08 | Outpatient (CLI) | payer MEDICARE, SELFPAY ==
[2022-12-21 15:30] LABS: Appearance Urine Clear (Clear); Bacteria Urine None Seen /hpf; Bilirubin Urine Negative (Negative); Blood Urine Negative (Negative); Color Urine Dark Yellow (Yellow); Glucose Urine UA Negative (Negative); Ketones Urine Trace mg/dL (Negative); Leukocyte Esterase Ur 1+ LEU/UL (Negative); Need Manual Microscopic Reviewed; Nitrate Urine Negative (Negative); Non Pathogenic Casts 0-2; Protein Urine Negative (Negative); Specific Grav Ur 1.022 (1.001-1.035); Squamous Epithelial Cell Urine None seen /hpf (Few); WBC Urine 0-5 /hpf
[2022-12-21 15:37] LABS: Add Urine Microscopic? YES
== END 2022-12-21 14:09 | disposition home or self-care (01) ==
LOC: ANHLAB 14:11
PROVIDERS: PCP Nurse Practitioner; Visit Provider Nurse Practitioner
DX: R39.9 Unspecified symptoms and signs involving the genitourinary system (principal)
CPT/HCPCS: 81001

== ENCOUNTER 2023-05-27 09:43 | Outpatient (CLI) | payer MEDICARE, SELFPAY ==
--- NOTE | 2023-05-27 10:04 | ECHO_ITS ---
Patient Info Name: Natasha Del Rio Age: 72 years : 1950 Gender: Female Ht: 65 in Wt: 180 lbs BSA: 1.96 m2 HR: 61 bpm BP: 146 / 82 mmHg Technical Quality: Good Exam Date: 05/27/2023 10:13 AM Exam Location: Echo Lab Patient Status: Outpatient Admit Date: 05/24/2023 Hydraulic Hammer Operator: Jenifer Ryan RDCS Attending Provider: Cody Lara APRN Exam Type: CA echo doppler color flow Study Info Indications Z95.4 - PRESENCE OF OTHER HEART VALVE REPLACEMENT Complete two-dimensional, color flow and Doppler transthoracic echocardiogram is performed. Summary 1. Complete two-dimensional, color flow and Doppler transthoracic echocardiogram is performed. 2. Left ventricular chamber dimension is normal. 3. Left ventricular systolic function is normal, estimated at 60-65%. 4. The left ventricular diastolic function is grade I diastolic dysfunction. 5. E/e' 11 is mildly elevated. 6. Global longitudinal strain is abnormal at -15.2%. 7. Left atrial chamber dimension is mildly enlarged. 8. Right atrial chamber dimension is mildly enlarged. 9. The mechanical aortic valve is not well visualized. 10. There is trace regurgitation of the mechanical aortic valve. 11. There is no mechanical aortic valve stenosis with a peak velocity of 306 cm/s, mean gradient of 21 mmHg, and aortic valve area of 1.6 cm2. No turbulent flow. 12. The mitral valve has moderately calcified annulus. 13. There is trace mitral valve regurgitation. 14. There is trace tricuspid valve regurgitation. 15. No pulmonary hypertension, estimated pulmonary arterial systolic pressure is 29 mmHg. 16. There is trace pulmonic regurgitation. Left Ventricle E/e' 11 is mildly elevated. Global longitudinal strain is abnormal at -15.2%. Left ventricular chamber dimension is normal. Left ventricular systolic function is normal, estimated at 60-65%. The left ventricular diastolic function is grade I diastolic dysfunction. Right Ventricle Right ventricular systolic function is normal and with normal TAPSE 1.9 cm. Right ventricular chamber dimension is normal. Left Atria Left atrial chamber dimension is mildly enlarged. Right Atria Right atrial chamber dimension is mildly enlarged. Aortic Valve There is no mechanical aortic valve stenosis with a peak velocity of 306 cm/s, mean gradient of 21 mmHg, and aortic valve area of 1.6 cm2. No turbulent flow. The mechanical aortic valve is not well visualized. There is trace regurgitation of the mechanical aortic valve. Pulmonic Valve There is trace pulmonic regurgitation. Mitral Valve The mitral valve has moderately calcified annulus. There is no mitral valve stenosis. There is trace mitral valve regurgitation. Tricuspid Valve There is trace tricuspid valve regurgitation. No pulmonary hypertension, estimated pulmonary arterial systolic pressure is 29 mmHg. Pericardium/Pleural There is no pericardial effusion. Inferior Vena Cava Normal inferior vena cava with >50% collapse upon inspiration consistent with normal right atrial pressure, 5 mmHg. Aorta The aortic root size at the sinus of Valsalva is normal. Left Ventricular Outflow Tract Name Value Normal LVOT 2D LVOT Diameter 1.9 cm LVOT Doppler LVOT Peak Gradient
== END 2023-05-27 09:44 | disposition home or self-care (01) ==
PROVIDERS: PCP Nurse Practitioner; Visit Provider Internal Medicine Cardiovascular Disease
DX: Z95.4 Presence of other heart-valve replacement (principal)
CPT/HCPCS: 93306

== ENCOUNTER 2023-08-09 08:00 | Outpatient (CLI) | payer MEDICARE, SELFPAY ==
--- NOTE | ~2023-08-09 | MM_ITS ---
EXAMINATION: MM screening mata BI w maia HISTORY: Screening TECHNIQUE: Craniocaudal and mediolateral oblique 3-D tomosynthesis images were obtained and synthetic 2-D images were generated. CAD analysis was submitted and interpreted. COMPARISON: Comparison to multiple prior studies sequentially, with oldest reviewed study dated 06/2019. BREAST PARENCHYMAL COMPOSITION: The breasts are heterogeneously dense, which may obscure small masses . FINDINGS: There is no evidence of suspicious mass, calcification, or architectural distortion to sugg est malignancy in either breast. There has been no suspicious interval change. IMPRESSION: 1. No mammographic evidence of malignancy. 2. Recommend routine screening mammography in one year. BI-RADS Category 1: Negative Reviewed, dictated and finalized at location B.
== END 2023-08-09 08:01 | disposition home or self-care (01) ==
PROVIDERS: PCP Nurse Practitioner Family; Visit Provider Nurse Practitioner
DX: Z12.31 Encounter for screening mammogram for malignant neoplasm of breast (principal)
CPT/HCPCS: 77063; 77067

== ENCOUNTER 2023-10-23 11:26 | Emergency (ER) | payer MEDICARE, SELFPAY ==
--- NOTE | ~2023-10-23 | CT_ITS ---
EXAMINATION: CT abdomen pelvis w con DATE: 10/23/2023 14:46 INDICATION: Left upper quadrant abdominal pain. TECHNIQUE: Computed tomography (CT) of the abdomen and pelvis was performed with 100 mL Omnipaque 350 intravenous contrast. Automated exposure control and iterative reconstruction technique were employe d. The dose-length product was 661.74 mGy-cm. COMPARISON: None. FINDINGS: The visualized portions of the lung bases demonstrate mild atelectasis. Calcified right fiona g nodules are consistent with old granulomatous disease. No pleural effusion. Cardiomegaly is noted. No pericardial effusion. There are cysts in the liver measuring up to 9 mm. There are changes of chol ecystectomy. The spleen, pancreas, adrenal glands, and kidneys are normal. There is a gastrostomy tub e in expected position. There is fat stranding in left anterior abdominal wall There are no dilated l oops of bowel. The appendix is normal. There are no pathologically enlarged lymph nodes. There is no free intraperitoneal fluid. There is lumbar levoscoliosis and mild spondylosis. There is a hemangioma in T10 vertebral body. IMPRESSION: 1. Fat stranding in left anterior abdominal wall, consistent with inflammation. No abscess. Reviewed, dictated and finalized at location E.
[2023-10-23 11:27] VITALS: BP 162/73; PULSE 82; RESP 16; TEMP 36.4; O2SAT 93
[2023-10-23 13:49] VITALS: BP 188/67; PULSE 71; RESP 20; O2SAT 95
--- NOTE | 2023-10-23 14:10 | ED.ABDPAIN ---
HPI - Abdominal Pain General Chief Complaint: Abdominal Pain Stated Complaint: abd pain, had feeding tube placed 09/27 Time Seen by Provider: 10/23/23 14:00 History of Present Illness HPI narrative: 72-year-old female with history of ALS, aortic valve replacement on warfarin, hypertension, dyslipidemia, CVA and recent G-tube placement on 09/27 at [place] presents to the emergency department for pain at her G-tube site. Patient states she has had some tenderness in the area since the G-tube has been placed, however over the past day it has significantly worsened especially over the left lateral side of the G-tube. She denies drainage, fever, nausea vomiting, diarrhea, dysuria or hematuria. She states she has been flushing her G-tube daily but has not had to use it given she can still swallow. She states she was advised by her neurologist to get the G-tube placed now in the anticipation for future dysphagia secondary to her ALS. Her neurologist is Dr. Wolf at [facility]. Related Data Home Medications Medication Instructions Recorded Confirmed calcium carbonate 500 mg-vitamin 1 tablet PO DAILY 07/28/22 05/13/23 D3 10 mcg (400 unit) tablet Allergies Allergy/AdvReac Type Severity Reaction Status Date / Time No Known Allergies Allergy Verified 10/23/23 13:43 Review of Systems Review of Systems: All systems reviewed & are unremarkable except as noted in HPI and below PMFSH Past Medical History Medical History Arthritis Blood clot in vein Claustrophobia Dyslipidemia Fracture of metacarpal Hypertension Osteoporosis Overactive bladder Radial fracture Stroke Vitamin D deficiency Wears glasses Surgical History Surgical History History of aortic valve replacement with metallic valve Hx of cholecystectomy Presence of other heart-valve replacement Family History Family History Mother Cerebrovascular accident Social History Social History Social History: She lives at home alone. She only has 1 son. Her son is the durable power wreath maker for healthcare and she has decided to be a full code. She is and her ex- is . She is retired from [employer]. Smoking packs per day: 0.5 Smoking cigarettes per day: 10.0 Years smoked: 15 Smoking pack-years: 7.50 Smoking status: Former smoker Tobacco type: cigarettes Smoking end date: 03/18/99 Alcohol intake: never Substance use: never Substance use type: does not use Lack of Transportation: No Lack of Food: Never True Current Housing: I Have Housing Concerned About Future Housing: No Difficulty Paying Gas/Electric Bills: No Difficulty Paying for Meds: No Currently Unemployed: No Education: High School Diploma/GED Difficulty w/ Childcare or Family Care: No Living arrangements: alone Occupation/Education: retired Gender identity (if verbalized by the patient): Female Sexual Orientation (if Verbalized by the Patient): Straight or Heterosexual Spiritual care concerns: No Exam Narrative: GENERAL: chronically ill-appearing, well-nourished, and in no acute distress. HEAD: Normocephalic, atraumatic. EYES: PERRLA and EOMI. ENT: Nares clear, no rhinorrhea or epistaxis. Mucous membranes moist. NECK: Supple. CHEST: Clear to auscultation. No respiratory distress. HEART: Regular rate and rhythm. No murmur heard. Normal peripheral pulses. ABDOMEN: G-tube in place with gastric contacts and the tube. No surrounding erythema, no purulence. Tenderness to the left lateral abdominal wall surrounding G-tube. No cellulitic changes, no erythema or edema, no crepitus EXTREMITIES: No edema. SKIN: Warm, dry, no rash. NEURO: Alert and oriented x3. Diffusely weak secondary to ALS Course Vital Sig
[2023-10-23 14:11] LABS: Basophils Percent Auto 0.3 % (0.2-1.2); Eosinophils Percent Auto 0.3 % (0-4.4); Hemoglobin 13.4 g/dL (12.0-15.0); Immature Granulocyte Absolute 0.03 K/mm3 (0.00-0.031); Immature Granulocyte Percent A 0.4 % (0-0.5); Lymphocytes Absolute Auto 1.14 K/mm3 (0.9-3.2); Lymphocytes Percent Auto 14.9 % (18.3-44.2); Mean Corpuscular HGB Conc 32.7 g/dl (32-36); Mean Corpuscular Volume 91.7 fl (80-100); Mean Platelet Volume 9.1 fl (7.4-10.4); Monocytes Absolute Auto 0.6 K/mm3 (0.1-0.6); Monocytes Percent Auto 7.2 % (2.6-8.5); Neutrophils Absolute Auto 5.9 K/mm3 (1.3-6.7); Neutrophils Percent Auto 76.9 % (45.5-73.1); Platelet Count Result 239 k/mm3 (150-375); Red Blood Count 4.47 M/mm3 (4.2-5.4); Red Cell Distribution Width 13.3 % (11.5-14.5); White Blood Count 7.7 K/mm3 (4.5-10.0)
[2023-10-23] MEDS: ACETAMINOPHEN 500 MG TABLET 1000 MG PO (14:16)
[2023-10-23 14:17] LABS: Alanine Aminotransferase 29 U/L (6-35); Albumin Level 4.6 g/dL (3.5-5.1); Alkaline Phosphatase 83 U/L (38-126); Anion Gap 10 mmol/L (4-12); Aspartate Amino Transferase 35 U/L (14-36); Bilirubin,Total 3.6 mg/dL (0.2-1.3); Blood Urea Nitrogen 10 mg/dL (7-17); Calcium 9.6 mg/dL (8.4-10.2); Carbon Dioxide 29 mmol/L (22-30); Chloride 99 mmol/L (98-107); Estimated CRCL calculation 88 ml/min; Estimated Glomerular Filt Rate > 60; Glucose 106 mg/dL (65-110); Lipase 39 U/L (23-300); Potassium 4.1 mmol/L (3.4-5.0); Sodium 138 mmol/L (137-145)
[2023-10-23 14:44] LABS: CRP 0.7 mg/dL (<1.0)
[2023-10-23 14:48] LABS: INR 4.2; Prothrombin Time 40.9 Seconds (11.1-14.7)
[2023-10-23 14:49] LABS: Partial Thromboplastin Time 58.2 Seconds (22.3-36.8)
[2023-10-23 15:04] LABS: Erythrocyte Sedimentation Rate 18 mm/hr (0-20)
[2023-10-23 15:08] LABS: Lactic Acid Reflex 0.8 mmol/L (0.7-2.0)
[2023-10-23] MEDS: CEPHALEXIN 500 MG CAPSULE PO (16:15)
[2023-10-23 16:16] VITALS: BP 165/65; PULSE 70; RESP 19; O2SAT 94
[2023-10-23 16:40] VITALS: BP 165/65; PULSE 68; RESP 17; TEMP 36.8; O2SAT 94
== END 2023-10-23 16:42 | disposition home or self-care (01) ==
PROVIDERS: Student in an Organized Health Care Education/Training Program; Emergency Provider Physician Assistant; PCP Nurse Practitioner Family
DX: T85.848A Pain due to other internal prosthetic devices, implants and grafts, initial encounter (principal); G12.21 Amyotrophic lateral sclerosis; I10 Essential (primary) hypertension; E78.5 Hyperlipidemia, unspecified; E55.9 Vitamin D deficiency, unspecified; M81.0 Age-related osteoporosis without current pathological fracture; N32.81 Overactive bladder; Z95.2 Presence of prosthetic heart valve; Z86.73 Personal history of transient ischemic attack (TIA), and cerebral infarction without residual deficits; Z87.891 Personal history of nicotine dependence; Z90.49 Acquired absence of other specified parts of digestive tract; Z79.01 Long term (current) use of anticoagulants; Z79.899 Other long term (current) drug therapy; Y83.3 Surgical operation with formation of external stoma as the cause of abnormal reaction of the patient, or of later complication, without mention of misadventure at the time of the procedure
CPT/HCPCS: 36415; 74177; 80053; 83605; 83690; 85025; 85610; 85652; 85730; 86140; 99284; A9270; Q9967

== ENCOUNTER 2024-06-20 13:05 | Outpatient (CLI) | payer MEDICARE, SELFPAY ==
--- NOTE | 2024-06-20 13:15 | ECHO_ITS ---
Patient Info Name: Natasha Del Rio Age: 73 years : 1950 Gender: Female Ht: 65 in Wt: 170 lbs BSA: 1.90 m2 HR: 60 bpm BP: 164 / 83 mmHg Heart Rhythm: Sinus Rhythm Technical Quality: Good Exam Date: 06/20/2024 1:22 PM Exam Location: Echo Lab Patient Status: Outpatient Admit Date: 06/20/2024 Staff Ordering Physician: Sherman Prather DO Power System Dispatcher: Malka Mays RDCS Attending Provider: Sherman Prather DO Referring Physician: Crescencio BILLY; Exam Type: CA echo doppler color flow Study Info Indications - Z95.4 Presence of other heart-valve replacement Complete two-dimensional, color flow and Doppler transthoracic echocardiogram is performed. Summary 1. Complete two-dimensional, color flow and Doppler transthoracic echocardiogram is performed. 2. Left ventricular chamber dimension is normal. 3. Left ventricular systolic function is normal, estimated at 65-70%. 4. There is mild concentric increased left ventricular wall thickness. 5. The left ventricular diastolic function is abnormal. 6. E/e' 16 is elevated. 7. Left atrial chamber dimension is moderately enlarged. 8. Mechanical aortic valve. 9. There is trace regurgitation of the mechanical aortic valve. 10. There is no mechanical aortic valve stenosis based on no significant turbulent flow. 11. The mitral valve has moderately calcified annulus. 12. There is trace mitral valve regurgitation. 13. There is trace tricuspid valve regurgitation. 14. No pulmonary hypertension, estimated pulmonary arterial systolic pressure is 34 mmHg. 15. There is trace pulmonic regurgitation. Left Ventricle E/e' 16 is elevated. Left ventricular chamber dimension is normal. Left ventricular systolic function is normal, estimated at 65-70%. There is mild concentric increased left ventricular wall thickness. The left ventricular diastolic function is abnormal. Right Ventricle Right ventricular chamber dimension is normal. Right ventricular systolic function is normal. Left Atria Left atrial chamber dimension is moderately enlarged. Right Atria Right atrial chamber dimension is normal. Aortic Valve There is no mechanical aortic valve stenosis based on no significant turbulent flow. Mechanical aortic valve. The mechanical aortic valve is not well visualized. There is trace regurgitation of the mechanical aortic valve. Pulmonic Valve There is trace pulmonic regurgitation. Mitral Valve The mitral valve has moderately calcified annulus. There is no mitral valve stenosis. There is trace mitral valve regurgitation. Tricuspid Valve There is trace tricuspid valve regurgitation. No pulmonary hypertension, estimated pulmonary arterial systolic pressure is 34 mmHg. Pericardium/Pleural There is no pericardial effusion. Inferior Vena Cava Normal inferior vena cava with >50% collapse upon inspiration consistent with normal right atrial pressure, 5 mmHg. Aorta The aortic root size at the sinus of Valsalva is normal. Left Ventricular Outflow Tract Name Value Normal LVOT 2D LVOT Diameter 1.9 cm LVOT Doppler LVOT Peak Gradient 2 mmHg LVOT Mean Gradient 1 mmHg LVOT VTI 22 cm LVOT VTI/AV VTI Ratio 0.3 LVOT Stroke Volume 60 ml LVOT CO 3.3 l/min LVOT CI 1.7 l/min/m2 Mitral Valve Name Value Normal MV Doppler MV Decel [place] 600 cm/s2 MV PHT 48 ms MV Area (PHT) 4.6 cm2 4.0-5.0 MV Diastolic Function MV E Peak Velocity 99 cm/s MV A Peak Velocity 95 cm/s MV E/A 1.0 MV Decel Time 165 ms MV Annular TDI MV E/e' (Septal) 18.8 <=8.0 MV E/e' (Lateral) 14.3 <=8.0 MV E/e' (Average) 16.5 Tricuspid Valve Name Value Normal TV Regurgitation Doppler TR Peak Velocity 268 cm/s TR Peak Gradient 29 mmHg Estimated PAP/RSVP RA Pressure 5 mmHg <=5 PA Systolic Pressure 34 mmHg <36 RV Systolic Pressure 34 mmHg <36 Aortic Valve Name Value Normal AV Doppler AV Peak Velocity 360 cm/s AV Peak Gradient 52 mmHg AV Mean Gradient 26 mmHg AV VTI 77 cm AV Area (Cont Eq VTI) 0.8 cm2 >=3.0 AV Area (Cont Eq Glen) 0.6 cm2 AV Regurgitation 2D LVOT Area 2.7 cm2 Ventricles Name Value Normal LV Dimensions 2D/MM IVS Diastolic Thickness (2D) 1.2 cm 0.6-1.0 LVID Diastole (2D) 4.0 cm 3.8-5.2 LVIW Diastolic Thickness (2D) 1.0 cm 0.6-0.9 LVID Systole (2D) 2.3 cm 2.2-3.5 LVOT Diameter 1.9 cm LV Mass (2D Cubed) 147.47 g 67.00-162.00 LV Mass Index (2D Cubed) 78 g/m2 43-95 Relative Wall Thickness (2D) 0.52 LV Fractional Shortening/Ejection Fraction 2D/MM LV Fractional Shortening (2D) 42 % 27-45 LV EF (2D Teicholz) 74 % 54-74 LV Diastolic Volume (4C MOD) 79 ml LV EF (4C MOD) 77 % LV Diastolic Volume (2C MOD) 72 ml LV EF (2C MOD) 76 % LV Diastolic Volume (BP MOD) 79 ml 46-106 LV Diastolic Volume Index (BP MOD) 42 ml/m2 29-61 LV Systolic Volume (BP MOD) 18 ml 14-42 LV Systolic Volume Index (BP MOD) 10 ml/m2 8-24 LV EF (BP MOD) 77 % 54-74 LV Diastolic Length (4C) 7.5 cm LV Systolic Length (4C) 5.0 cm LV Stroke Volume (4C MOD) 61 ml Atria Name Value Normal LA Dimensions LA Volume (4C A-L) 77 ml LA Volume (BP A-L) 77 ml RA Dimensions RA Area (4C) 13.2 cm2 <=18.0 Report Signatures
--- OUTSIDE RECORDS SUMMARY | 2024-06-20 14:38 | XMS_ITS | Clinical Summary ---
Author Organization [facility] Address [address] [place] [address] Care Team Providers Care Commercial Review Appraiser Name Role Phone Sheldon Newby Primary Care Provider [phone] Source Comments [facility],non-owned Affiliates and Associated Physician Practices is amultiple site organization consisting of ambulatory clinics and hospital sitesin [place], [place], [place]. This disclosure is being madepursuant to the Care Everywhere program and may not contain all information available regarding this patient. Last updated 17.[facility] [email or web address] Allergies No known active allergies Medications * Be aware that medications may not be up to date on this document. Alwaysverify current medications with the patient. Medication Sig Dispensed Refills Start Date End Date Status losartan (COZAAR) 25 MG tablet Take 25 mg by mouth once daily Active warfarin (COUMADIN) 1 MG tablet Take 12 mg by mouth once daily 10mg on Tuesday and Tuesday. 12.5mg on all other days of the week. Active alendronate (FOSAMAX) 70 MG tablet Take 70 mg by mouth every 7 days before meal Take in morning with full glass of water on empty stomach and remain upright for 30 min Active Calcium Carb-Cholecalciferol (CALCIUM 500+D PO) Take by mouth once daily Active atorvastatin (Lipitor) 20 MG tablet Take 20 mg by mouth at bedtime Active busPIRone (Buspar) 7.5 MG tablet Take 7.5 mg by mouth once daily Active escitalopram (Lexapro) 10 MG tablet Take 10 mg by mouth once daily Active oxybutynin CR 24hr (Ditropan-XL) 10 MG tablet Take 20 mg by mouth once daily Active oxyCODONE-acetaminophe n (Percocet) 5-325 MG tablet Take 1 tablet by mouth every 4 hours as needed for Pain Active Active Problems Problem Noted Date Diagnosed Date History of cerebellar stroke 03/20/2021 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 Subtherapeutic international normalized ratio (I NR) 03/20/2021 Cerebellar stroke 12/19/2020 Social History Tobacco Use Types Packs/Day Years Used Date Smoking Tobacco: Former Cigarettes Q uit: 03/14/2009 Smokeless Tobacco: Never Sex and Gender Information Value Date Recorded Sex Assigned at Not on file Gender Identity Not on file Sexual Orientation Not on file Last Filed Vital Signs Vital Sign Reading Time Taken Comments Blood Pressure 137/71 10/21/2021 11:28 AM CDT Pulse 72 10/21/2021 11:28 AM CDT Temperature - - Respiratory Rate 12 10/21/2021 11:28 AM CDT Oxygen Saturation - - Inhaled Oxygen Concentration - - Weight 71.2 kg (157 lb) 12/19/2020 12:33 PM CDT Height 167.6 cm (5' 6 ) 12/19/2020 12:33 PM CDT Body Mass Index 25.34 12/19/2020 12:33 PM CDT Plan of Treatment Health Maintenance Due Date Last Done Comments BONE DENSITY TESTING 1950 COLON MONITORING 1950 COLONOSCOPY - COLON CA SCREENING 1950 CT COLONOGRAPHY - COLON CA SCREENING 1950 FIT - COLON CA SCREENING 1950 FLEX SIG - COLON CA SCREENING 1950 MAMMOGRAM 1950 HEPATITIS C SCREENING 12/26/1969 DTAP/TDAP/TD VACCINES (1 - Tdap) 12/30/1970 PNEUMOCOCCAL VACCINE 50+ (1 of 1 - PCV) 12/30/2001 ZOSTER VACCINE (1 of 2) 12/30/2001 Respiratory Syncytial Virus (RSV) Vaccine Pt: or over 60 yrs (1 - Risk 60-74 years 1-dose series) 2011 COLOGUARD (AGES 45-75) - COL ON CA SCREENING 10/22/2023 10/21/2020 Colorectal Cancer Screening 10/22/2023 COVID-19 VACCINE (2023-2 5 season) 2023 DEPRESSION SCREENING 03/14/2024 MEDICARE AWV CALENDAR YEAR 2024 SCREENING FOR DIABETES 10/23/2024 10/23/2021 INFLUENZA VACCINE (Season Ended) 2024 HEPATITIS B VACCINE Aged Out No longe r eligible based on patient's age to complete this topic HIB VACCINE Aged Out No longer eligi ble based on patient's age to complete this topic HPV VACCINE Aged Out No longer eligi ble based on patient's age to complete this topic MENINGOCOCCAL (Group B) VACC INE SHARED DECISION-MAKING Aged Out No longer eligibl e based on patient's age to complete this topic MENINGOCOCCAL GROUPS A/C/Y/W VACCINE Aged Out No longer eligible b ased on patient's age to complete this topic Procedures Procedure Name Priority Date/Time Associated Diagnosis Comments HEMOGLOBIN A1C Routine 10/23/2021 11:54 AM CDT Incoordination from Last 3 Months or Most Recently Relevant to Health Maintenance Results * HEMOGLOBIN A1C (10/23/2021 11:54 AM CDT) Hemoglobin A1c 4.7 <5.7 % of total Hgb [facility] Comment: For the purpose of screening for the presence of diabetes: <5.7% Consistent with the absence of diabetes 5.7-6.4% Consistent with increased risk for diabetes (prediabetes) > or =6.5% Consistent with diabetes This assay result is consistent with a decreased risk of diabetes. Currently, no consensus exists regarding use of hemoglobin A1c for diagnosis of diabetes in children. According to [place] Diabetes Association (ADA) guidelines, hemoglobin A1c <7.0% represents optimal control in non- diabetic patients. Different metrics may apply to specific patient populations. Standards of Medical Care in Diabetes(ADA). Test Performed at: [id number] [id number] PATTI PIMENTEL MD Blood BLOOD SPECIMEN / Unknown 10/23/2021 11:54 AM CDT 10/23/2021 11:58 AM CDT Chaparro Zheng MD LAB - [facility] [id number] [place] [address] from Last 3 Months or Most Recently Relevant to Health Maintenance Care Teams Commercial Review Appraiser Relationship Specialty Start Date End Date Sheldon Newby DO [address] [id number] PCP - General 09/13/21
--- OUTSIDE RECORDS SUMMARY | 2024-06-20 14:38 | XMS_ITS | Continuity of Care Document ---
Author Organization [facility] Address [address] [place] [address] Phone Care Team Providers Care Nursing Education Consultant Name Role Phone Derek Ugalde MD Unavailable Unavailab le Medications Medication Instructions Dosage Effective Dates (start - stop) Status Comments Guaifenesin AC 10 mg-100 mg/5 mL Oral Liquid take 10 milliliter by oral route every 4 hours as needed for cough 10.00 milliliter - Active aspirin 81 mg Tab take 1 tablet (81MG) by oral route every day - Active FLONASE 0.05% NASAL SPRAY spray 1 spray by intranasal route 2 times every day in each nostril - Active [place] Nasal 0.65 % [place] Aerosol 2 sprays each nostril daily - Active Advance Directives Directive Yes / No Effective Date File Name No Information Encounters Encounter Description Practice Location Reason(s) For Visit Diagnoses Date Provider Providers Copied on Encounter [email or web address], [address], [place], [place], [address], tel:[phone] [facility] No Information 9 Tram Reed. [facility] [address], [place], [place], [address], [place]. tel:[phone] [email or web address], [address], [place], [place], [address], tel:[phone] [facility] Lower abdominal pain 2 Tram Reed. [address] [address], [place], [place], [address], [place]. tel:[phone] Referring Provider: Derek Ugalde , [address] [place] [address], [place], [address] . tel:[phone] [facility], [address], [place], [place], [address], [place] tel:[phone] [facility] No Information 1 Tram Reed. [address] [place] [address], [address] [address], [place], [place], [address], [place]. tel:[phone] [facility], [address], [place], [place], [address], [place] tel:[phone] [facility] Acute sinusitis, unspecified 0 1 Brent Wanda. [address] [place] [address], [address] [address], [place], [address]. tel:[phone] Referring Provider: Derek Ugalde , [address] [place] [address], [place], [address] . tel:[phone] [facility], [address], [place], [place], [address], [place] tel:[phone] [facility] IMPACTED CERUMENACUTE SINUSITIS NOS 9 Naveed Silvana. [address] [facility] [place] [place], [place], [place], [address]. tel:[phone] [facility], [address], [place], [place], [address], [place] tel:[phone] [facility] DIARRHEA 9-200 8 Tram Reed. [address] [place] [address], [address] [address], [place], [place], [address], [place]. tel:[phone] [facility], [address], [place], [place], [address], [place] tel:[phone] [facility] CONTUSION OF FINGERFX PHALANX, HAND NOS-CL 4-200 8 Tram Reed. [address] [place] [address], [place], [place], [address], [place]. tel:[phone] [facility], [address], [place], [place], [address], [place] tel:[phone] [facility] BONE & CARTILAGE DIS NOS 4200 8 Jason Otero. [address], [address], [place], [place], [address]. tel:[phone] [facility], [address], [place], [place], [address], [place] tel:[phone] [facility] CALCANEAL SPUR 7200 6 Tram Reed. [address], [address], [place], [place], [address], [place]. tel:[phone] [facility], [address], [place], [place], [address], [place] tel:[phone] [facility] LUMBAGO 6 Naveed Silvana. [address] [facility] [place] [place], [place], [place], [address]. tel:[phone] [facility], [address], [place], [place], [address], [place] tel:[phone] [facility] SCIATICA 6 Tram Reed. [facility], [place], [place], [address], [place]. tel:[phone] [facility], [address], [place], [place], [address], [place] tel:[phone] [facility] AORTIC VALVE DISORDER 2 2200 6 Tram Reed. [address], [address], [place], [place], [address], [place]. tel:[phone] [facility], [address], [place], [address], [place] tel:[phone] [facility] DERMATITIS DUE TO PLANT Aug-0 8200 6 Tram Reed. [facility], [place], [place], [address], [place]. tel:[phone] [facility], [address], [place], [place], [address], tel:[phone] [facility] ACUTE URI NOS 0200 5 Naveed Pina. [address] [facility] [place], [place], [place], [address]. tel:[phone] [facility], [address], [place], [place], [address], tel:[phone] [facility] INFLAMED SBRHEIC KERATOSNONSPECIF SKIN ERUPT NEC 4 Tram Reed. [address], [address], [place], [place], [address], [place]. tel:[phone] [facility], [address], [place], [place], [address], tel:[phone] [facility] ACUTE BRONCHITIS 3 Conversion Doctor. [address] [place], [address], [place]. [facility], [address], [place], [place], [address], tel:[phone] [facility] TIETZE'S DISEASE 3 Naveed Pina. [address] [facility] [place], [place], [place], [address]. tel:[phone] [facility], [address], [place], [place], [address], tel:[phone] [facility] EXT THROMBOS HEMORRHOID 8200 2 Tram Reed. [address], [address], [place], [place], [address], [place]. tel:[phone] Family History Family Member Type Diagnosis Age At Onset No Information Payers Payer name Insurance type Covered libertarian ID Severianotristan kobyadam(s) [facility] CI [id number] Social History Type Description Quantity Date Captured Comments Alcohol Use Details Unknown Caffeine Use Details Unknown Tobacco Use Status Smoking Status No Information Sex Female Chief Complaint And Reason For Visit No Information Reason For Referral Reason For Referral No Information History Of Present Illness Encounter Date Complaint History Of Prese nt Illness No Information Functional Status Date Functional Assessmen t No Information Instructions Date Instruction Additional Infor mation No Information Assessments Type Assessment Date No Information Patient Care Teams Name Effective Dates (start - stop) Status Members No Information
--- OUTSIDE RECORDS SUMMARY | 2024-06-20 14:38 | XMS_ITS | Encounter Summary ---
Author Organization [facility] Address [address] [place] [address] Phone Care Team Providers Care Health Care Social Worker Name Role Phone Benton Gonzales MD Primary Care Provider [phone] Glenn Thomas MD Primary Care Provider [phone] Cody Lara NP Primary Care Provider [phone] Jaylene Wolf MD PhD Unavailab le Alannah Gentile Unavailable [phone] Juvencio Cheney MD Unavailable Sylvia Layton NP Primary Care Provider [phone] Sneha Nayak OT Unavailable Unavailab le Zara Hatch NP Unavailable [phone] Tabitha Mcbride NP Unavailable [phone] Encounter Details Date Type Department Care Team (Latest Contact Info) Description 05/25/2017 Orders Only [facility] CONVERSION Scanning, Provider Social History Tobacco Use Types Packs/Day Years Used Date Smoking Tobacco: Former Comments Unknown Sex and Gender Information Value Date Recorded Sex Assigned at Not on file Legal Sex Female 7:37 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 Gender Identity Not on file Sexual Orientation Not on file documented as of this encounter Plan of Treatment Not on file documented as of this encounter Procedures Procedure Name Priority Date/Time Associated Diagnosis Comments PULMONARY FUNCTION TEST (PFT) 05/25/2017 1:57 PM CDT documented in this encounter Results * PULMONARY FUNCTION TEST (PFT) (05/25/2017 1:57 PM CDT) Anatomical Region Laterality Modality PFT us Provider Scanning PFT ORDERABLES Final Result documented in this encounter Visit Diagnoses Not on filedocumented in this encounter Additional Health Concerns Infection Onset Date Last Indicated Resolved Time C. difficile Comment:09/27/2023 per Irma Richardson, patient dose not have active infection Kelsey Segura RN generated from [facility] 08/30/1986 08/30/1986 09/27/2023 7:00 PM C DT documented as of this encounter Care Teams Health Care Social Worker Relationship Specialty Start Date End Date Benton Gonzales MD [address] [place], [place] [address]KATHY Johnson [address] [address] PCP - General 05/07/16 05/01/19 Glenn Thomas MD [address] [place], [place] [address]KATHY Johnson [address] [address] PCP - General Family Medicine 05/02/19 01/23/23 Cody Lara NP [address] [facility] [address] [facility] [address] [place] [address] PCP - General Nurse Practitioner 01/24/23 10/02/23 Sylvia Layton NP [address] [place] [address] PCP - General Family Medicine 10/03/23 Jaylene Wolf MD PhD [address] [facility] [address] [place] [address] Consulting Physician Neurology 07/11/23 Alannah Gentile PA [address] [facility] [address] [place] [address] Physician [place] Encaser Physician [place] Encaser 07/11/23 Juvencio Cheney MD [address] [place] [address] NEUROLOGY SLEEP [facility], [facility] [address] [place] [address] Consulting Physician Sleep Medicine 08/19/23 Sneha Nayak, OT Occupational Therapist Occupational Therapy 11/18/23 Zara Hatch NP [address] [facility] [place] [address] Nurse Practitioner Hospice and Palliative Medicine 02/01/24 Tabitha Mcbride NP [address] [facility] [address] [facility] [address] [place] [address] Nurse Practitioner Hospice and Palliative Medicine 05/04/24 documented as of this encounter
--- OUTSIDE RECORDS SUMMARY | 2024-06-20 14:38 | XMS_ITS | Referral Summary ---
Author Organization [facility] Address [address] [place] [address] Care Team Providers Care Digital Production Operator Name Role Phone Jaylene Wolf MD PhD Unavailab le Alannah Gentile Unavailable [phone] Juvencio Cheney MD Unavailable Sylvia Layton FEED CRUSHER OPERATOR Primary Care Provider [phone] Sneha Nayak OT Unavailable Unavailab le Zara Hatch FEED CRUSHER OPERATOR Unavailable [phone] Tabitha Mcbride FEED CRUSHER OPERATOR Unavailable [phone] Encounters Date Type Department Care Team Description 06/01/2024 Telephone [facility] Home Care Services [address] [facility] [address] [place] [phone] Marsha Briceño, ZULEIKA 06/01/2024 Telephone [facility] Home Care Services [address] [facility] [address] [place] [phone] Marsha Briceño, RN 05/30/2024 Telephone [facility] Home Care Services [address] [facility] [address] [place] [phone] Marsha Briceño, RN 05/29/2024 11:00 AM CDT [place] [facility] [address] [place] [phone] Tabitha Mcbride NP ALS (amyotrophic lateral sclerosis) (HCC) (Primary Dx); Dysphagia, unspecified type; Debility 05/16/2024 Telephone [facility] Neuro Sleep [address] [facility] [address] [place] [address] Shanna Matos RN DME order 05/16/2024 11:00 AM ANIMAL ANATOMY TEACHER Telemedicine [facility] Neuro Sleep [address] [facility] [address] [place] [address] Juvencio Cheney MD 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); ALS (amyotrophic lateral sclerosis) (HCC) 05/04/2024 1:00 PM ANIMAL ANATOMY TEACHER [place] [facility] [address] [place] [address] Tabitha Mcbride NP Palliative care encounter (Primary Dx); ALS (amyotrophic lateral sclerosis) (HCC) 04/05/2024 Telemedicine [facility] Stroke [address] [facility] 6[address] [place] [phone] Juvencio Cheney MD ALS (amyotrophic lateral sclerosis) (HCC) (Primary Dx); 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) 03/28/2024 11:00 AM ANIMAL ANATOMY TEACHER [place] [facility] [address] [place] [address] Tabitha Mcbride NP ALS (amyotrophic lateral sclerosis) (HCC) (Primary Dx); Palliative care encounter from Last 3 Months Allergies No known active allergies Medications escitalopram (LEXAPRO) 10 mg tabletIndications: major depressive disorder Take 1 tablet (10 mg total) by mouth daily Active atorvastatin (LIPITOR) 20 mg tabletIndications: hyperlipidemia Take 1 tablet (20 mg total) by mouth nightly Active oxyBUTYnin XL (DITROPAN-XL) 10 mg 24 hr tabletIndications: Bladder Hyperactivity Take 2 tablets (20 mg total) by mouth daily Active alendronate (FOSAMAX) 70 mg tabletIndications: Osteoporosis in Male Patient Take 1 tablet (70 mg total) by mouth every 7 days Take in the morning with a full glass of water, on an empty stomach, and do not take anything else by mouth or lie down for the next 30 min. Active warfarin sodium (WARFARIN ORAL)Indications:b lood thinner 7.5mg Mon/Wed/Fri 10mg Tu/Thur/Sat /Sun. 0 Active acetaminophen (TYLENOL) 500 mg tabletIndications: Pain Take 500 mg by mouth every 6 (six) hours as needed for pain. Indications: pain Active riluzole (RILUTEK) 50 mg tablet TAKE 1 TABLET BY MOUTH EVERY 12 HOURS 200 tablet 2 Active Active Problems Problem Noted Date Diagnosed Date ALS (amyotrophic lateral sclerosis) 08/19/2023 Restrictive lung mechanics due to neuromuscular disease 08/19/2023 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 Subtherapeutic international normalized ratio (I NR) 03/20/2021 Cerebellar stroke 12/19/2020 nursing home (current) use of anticoagulants [Z79.0 1] 08/09/2017 Dry skin 06/29/2017 Cellulitis of forearm 06/13/2017 Hyperkalemia 05/10/2017 Carpal tunnel syndrome 03/16/2016 Impaired fasting glucose 10/31/2014 Subclinical hypothyroidism 10/31/2014 Hyperlipidemia 10/29/2014 Obesity 10/29/2014 Prehypertension 10/29/2014 Adenomatous polyp of colon 05/02/2014 History of open heart surgery 05/02/2014 Rectal hemorrhage 05/02/2014 Hay fever 06/22/2011 Osteopenia 06/22/2011 Immunizations Immunization Administration Dates Next Due Influenza, Trivalent, High D ose, Split, Preservative Free, Intramuscular 01/31/2018 Influenza, Trivalent, Preser vative Free, Intramuscular 02/12/2016,01/12/2015,01/12/2014,01/12,01/12/2011 Tdap 06/22/2011 Social History Tobacco Use Types Packs/Day Years Used Date Smoking Tobacco: Former Smokeless Tobacco: Never Tobacco Cessation:Counseling Given: No Alcohol Use Standard Drinks/Week Comments No 0 (1 standard drink = 0.6 oz pur e alcohol) OASIS D0700: Social Isolation Answer Da te Recorded Frequency of experiencing loneliness or isolatio n Never 12/01/2023 OASIS A1250: Transportation Answer Date Recorded Lack of Transportation (Medical) No 12/01/2023 Lack of Transportation (Non-Medical) No 12/01/2023 Patient Unable or Declines to Respond No 12/01/2023 OASIS B1300: Health Literacy Answer Mauricio e Recorded Frequency of needing help to read materials from doctor or pharmacy Never 12/01/2023 AUDIT-C Answer Date Recorded Q1: How often do you have a drink containing alcohol? Never 10/28/2023 Q2: How many drinks containi ng alcohol do you have on a typical day when you are drinking? Patient does not drink Q3: How often do you have si x or more drinks on one occasion? Never 10/28/2023 PHQ-2 Answer Date Recorded PHQ-2 Total Score (If total score is 3 or more points, staff should administer the PHQ-9) 0 09/28/2023 PHQ-9 Answer Date Recorded PHQ-9 Total Score 0 09/28/2023 Personal Safety Answer Date Recorded Have you ever been in or are you currently in a harmful physical or emotional relationship or is someone making you feel afraid or unsafe? Denies 10/28/2023 Comments Unknown Sex and Gender Information Value Date Recorded Sex Assigned at Not on file Legal Sex Female 7:37 PM ANIMAL ANATOMY TEACHER Gender Identity Not on file Sexual Orientation Not on file Last Filed Vital Signs Vital Sign Reading Time Taken Comments Blood Pressure 118/62 12/01/2023 2:17 PM CDT Pulse 81 12/01/2023 2:17 PM CDT Temperature 36.3 C (97.3 F) 12/01/2023 2:17 PM CDT Respiratory Rate 18 12/01/2023 2:17 PM CDT Oxygen Saturation 94% 12/01/2023 2:17 PM CDT Inhaled Oxygen Concentration - - Weight 78.9 kg (174 lb) 05/16/2024 11:12 AM ANIMAL ANATOMY TEACHER Height 167.6 cm (5' 6 ) 05/16/2024 11:12 AM ANIMAL ANATOMY TEACHER Body Mass Index 28.08 05/16/2024 11:12 AM ANIMAL ANATOMY TEACHER Plan of Treatment Not on file Procedures Procedure Name Priority Date/Time Associated Diagnosis Comments SCREENING MAMMOGRAM 2D BILATERAL Schedule Routine, Read Routine (OP Routine) 10/05/2017 4:23 PM CDT Encounter for screening mammogram for malignant neoplasm of breast COLONOSCOPY REPORT 08/09/2014 from Last 3 Months or Most Recently Relevant to Health Maintenance Results * Screening Mammogram 2D Bilateral (10/05/2017 4:23 PM CDT) Anatomical Region Laterality Modality Breast Bilateral Mammography Narrative 10/06/2017 2:06 PM CDT Mammogram Technique: Bilateral Full-Field Digital Screening Mammogram was performed. Views obtained: bilateral craniocaudal and bilateral mediolateral oblique. Computer Aided Detection was performed. Mammogram Findings: The present examination has been compared to prior imaging studies performed at [facility] on 06/04/2014, 05/27/2015 and 08/11/2016. There are scattered areas of fibroglandular density. There is no suspicious abnormality in either breast. Impression: Annual screening mammography is recommended. OVERALL FINAL ASSESSMENT: BI-RADS CATEGORY 1: Negative. Procedure Note Jan Jordan MD - 10/06/2017 Mammogram Technique: Bilateral Full-Field Digital Screening Mammogram was performed. Views obtained: bilateral craniocaudal and bilateral mediolateral oblique. Computer Aided Detection was performed. Mammogram Findings: The present examination has been compared to prior imaging studies performed at [facility] on 06/04/2014, 05/27/2015 and 08/11/2016. There are scattered areas of fibroglandular density. There is no suspicious abnormality in either breast. Impression: Annual screening mammography is recommended. OVERALL FINAL ASSESSMENT: BI-RADS CATEGORY 1: Negative. Emily Rodríguez MD IMG MAMMO PROCEDURES Final R esult * COLONOSCOPY REPORT (08/09/2014) Anatomical Region Laterality Modality Other Narrative 08/09/2014 Ordered by an unspecified provider. Historical Provider GI PROCEDURE ORDERABLES F inal Result from Last 3 Months or Most Recently Relevant to Health Maintenance Insurance MEDICARE ADVANTAGE MEDICARE MEDICARE ADVANTAGE MEDICARE Advance Directives For more information, please contact: [phone] * LIMITED - No CPR (Latest Code Status on File) Date Activated Date Inactivated Comments 05/04/2024 4:12 PM Question Answer Comments Cardio Resuscitation: No Chest CompressionsNo De fibrillation/Cardioversion Ventilation: No Intubation * Full Code Date Activated Date Inactivated Comments 09/28/2023 2:18 PM 10/01/2023 9:29 PM Care Teams Digital Production Operator Relationship Specialty Start Date End Date Sylvia Layton NP [address] [place] [address] PCP - General Family Medicine 10/03/23 Jaylene Wolf MD PhD [address] [address] Consulting Physician Neurology 07/11/23 Alannah Gentile PA 1 [facility] [address] [place] [address] Physician Information Operator Physician Information Operator 07/11/23 Juvencio Cheney MD [address] [place] [address] NEUROLOGY SLEEP [address] [address] Consulting Physician Sleep Medicine 08/19/23 Sneha Nayak, OT Occupational Therapist Occupational Therapy 11/18/23 Zara Hatch FEED CRUSHER OPERATOR [address] [facility] [place] [address] Nurse Practitioner Hospice and Palliative Medicine 02/01/24 Tabitha Mcbride NP [address] [facility] [address] [place] [address] Nurse Practitioner Hospice and Palliative Medicine 05/04/24
--- OUTSIDE RECORDS SUMMARY | 2024-06-20 14:38 | XMS_ITS | Clinical Summary ---
Author Organization [facility] Address [address] [place] [address] Care Team Providers Care Plating Tank Operator Apprentice Name Role Phone Jaylene Wolf MD PhD Unavailab le Alannah Gentile Unavailable [phone] Juvencio Cheney MD Unavailable Sylvia Layton NP Primary Care Provider [phone] Sneha Nayak OT Unavailable Unavailab le Zara Hatch NP Unavailable [phone] Tabitha Mcbride NP Unavailable [phone] Allergies No known active allergies Medications escitalopram [...] (WARFARIN ORAL)Indications:b lood thinner 7.5mg Mon/Wed/Fri 10mg Tu//Sat /Sun. 0 Active acetaminophen (TYLENOL) 500 mg tabletIndications: Pain Take 500 mg by mouth every 6 (six) hours as needed for pain. 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 Subtherapeutic international normalized ratio (I NR) 03/20/2021 Cerebellar stroke 12/19/2020 manager intermediate (current) use of anticoagulants [Z79.0 1] 08/09/2017 Dry skin 06/29/2017 Cellulitis of forearm 06/13/2017 Hyperkalemia 05/10/2017 Carpal tunnel syndrome 03/16/2016 Impaired fasting glucose 10/31/2014 Subclinical hypothyroidism 10/31/2014 Hyperlipidemia 10/29/2014 Obesity 10/29/2014 Prehypertension 10/29/2014 Adenomatous polyp of colon 05/02/2014 History of open heart surgery 05/02/2014 Rectal hemorrhage 05/02/2014 Hay fever 06/22/2011 Osteopenia 06/22/2011 Encounters Date Type Department Care Team Description 06/01/2024 Telephone [facility] Home Care Services [address] [place] [address] [place] [phone] Marsha Briceño RN 06/01/2024 Telephone [facility] Home Care Services [address] [place] [address] [place] [phone] Marsha Briceño RN 05/30/2024 Telephone [facility] Home Care Services [address] [place] [address] [place] [phone] Marsha Briceño RN 05/29/2024 11:00 AM CDT Residential Visit [facility] Palliative Care 1 [facility] [address] [place] [phone] Tabitha Mcbride NP ALS (amyotrophic lateral sclerosis) (HCC) (Primary Dx); Dysphagia, unspecified type; Debility 05/16/2024 11:00 AM SHIPPING AND RECEIVING SUPERVISOR Telemedicine [facility] Neuro Sleep [address] [facility] [address] [place] [phone] Juvencio Cheney MD 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); ALS (amyotrophic lateral sclerosis) (HCC) 05/16/2024 Telephone [facility] Neuro Sleep [address] [facility] 6[address] [place] [phone] Shanna Matos RN DME order 05/04/2024 1:00 PM SHIPPING AND RECEIVING SUPERVISOR Residential Visit [facility] Palliative Care [address] [place] [address] Tabitha Mcbride NP Palliative care encounter (Primary Dx); ALS (amyotrophic lateral sclerosis) (HCC) 04/05/2024 Telemedicine [facility] Stroke [address] [facility] 6[address] [place] [phone] Juvencio Cheney MD ALS (amyotrophic lateral sclerosis) (HCC) (Primary Dx); 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) 03/28/2024 11:00 AM SHIPPING AND RECEIVING SUPERVISOR Residential Visit [facility] Palliative Care [address] [place] [phone] Tabitha Mcbride NP ALS (amyotrophic lateral sclerosis) (HCC) (Primary Dx); Palliative care encounter from Last 3 Months Immunizations Immunization Administration Dates Next Due Influenza, Trivalent, High D ose, Split, Preservative Free, Intramuscular 01/31/2018 Influenza, Trivalent, Preser vative Free, Intramuscular 02/12/2016,01/12/2015,01/12/2014,01/12,01/12/2011 Tdap 06/22/2011 Surgical History Surgery Date Site/Laterality Comments SECTION Section - (Added by TW Conv) RI LAPAROSCOPY SURG CHOLECYSTECTOMY Cholecystectomy Laparoscopic - (Added by TW Conv) AORTIC VALVE REPLACEMENT Aortic Valve Replacement - (Added by TW Conv) LOOP ELECTROSURGICAL EXCISIO N PROCEDURE Cervical Loop Electrosurgical Excision (LEEP) - (Added by Conv) IR G TUBE PLACEMENT PERCUTANEOUS 09/28/2023 N/A ENTERIC TUBE INJECTION 10/28/2023 N/A Medical History Medical History Date Comments History of recurrent pneumonia P neumonia - (Added by TW Conv) Personal history of other di seases of the digestive system History of cholelithiasis - (Added by TW Conv) 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 History of bicuspid aortic v alve - (Added by TW Conv) 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 - (Added by TW Conv) Personal history of other di seases of the circulatory system History of aortic valve sten osis - (Added by TW Conv) Personal history of other di seases of the circulatory system History of aortic valve sten osis - (Added by TW Conv) Cellulitis of right upper extremity Cellulitis of right upper arm - (Added by TW Conv) Heart murmur Family History Medical History Relation Name Comments Alcohol abuse Brother 1 Duglas Drug abuse Brother 1 Duglas Leg weakness Brother 1 Duglas No Known Problems Brother 2 Duran Heart attack Father Hypertension Father Prostate cancer Father No Known Problems Maternal Grandfather No Known Problems Maternal Grandmother Heart attack Mother Parkinsonism Mother Stroke Mother Stroke Mother's Brother No Known Problems Paternal Grandfather No Known Problems Paternal Grandmother Relation Name Status Comments Brother 1 Duglas Alive Brother 2 Duran Alive Father (Age 90) Maternal Grandfather Maternal Grandmother Mother (Age 71) Mother's Brother (Age 68) Paternal Grandfather Paternal Grandmother Social History Tobacco Use Types Packs/Day Years [...] on file Legal Sex Female 7:37 PM SHIPPING AND RECEIVING SUPERVISOR Gender Identity Not on file Sexual Orientation Not on file Obstetrics History Last Filed Vital Signs Vital Sign Reading Time Taken Comments Blood Pressure 118/62 12/01/2023 2:17 PM CDT Pulse 81 12/01/2023 2:17 PM CDT Temperature 36.3 C (97.3 F) 12/01/2023 2:17 PM CDT Respiratory Rate 18 12/01/2023 2:17 PM CDT Oxygen Saturation 94% 12/01/2023 2:17 PM CDT Inhaled Oxygen Concentration - - Weight 78.9 kg (174 lb) 05/16/2024 11:12 AM SHIPPING AND RECEIVING SUPERVISOR Height 167.6 cm (5' 6 ) 05/16/2024 11:12 AM SHIPPING AND RECEIVING SUPERVISOR Body Mass Index 28.08 05/16/2024 11:12 AM SHIPPING AND RECEIVING SUPERVISOR Plan of Treatment Health Maintenance Due Date Last Done Comments Hepatitis C Screening 1950 Osteoporosis Screening-Bone Density Scan 1950 Hepatitis B Screening 12/30/1969 Pneumococcal vaccine 65+ (1 of 1 - PCV) 12/30/2001 Zoster Vaccine (1 of 2) 12/30/2001 Well Visit 65+ 12/30/2016 Breast Cancer Screening-Mammogram 10/05/2018 10/05/2017, 08/11/2016, 08/11/2016, Additional history exists DTaP/Tdap/Td Vaccine (2 - Td or Tdap) 06/21/2021 06/22/2011 Colon Cancer Screening-Colonoscopy 08/09/2024 08/09/2014, 04/23/2014, 04/19/2014 Depression Screening 09/01/2024 09/02/2023, 09/02/19 24 Fall Risk Assessment 10/27/2024 10/28/2023 Influenza Vaccine (Season Ended) 2024 01/31/2018, 02/12/2016, 01/12/2015, Additional history exists Colon Cancer Screening-CT Colonography Discontinued 08/09/2014, 04/23/2014, 04/19/2014 Colon Cancer Screening-DNA Stool Discontinued 08/09/2014, 04/23/2014, 04/19/2014 Colon Cancer Screening-FIT Discontinued 08/09, 04/23/2014, 04/19/2014 Colon Cancer Screening-Sigmoidoscopy Discontinued 08/09/2014, 04/23/2014, 04/19/2014 Procedures Procedure Name Priority Date/Time Associated Diagnosis [...] compared to prior imaging studies performed at [facility] on 06/04/2014, 05/27/2015 and 08/11/2016. There are [...] compared to prior imaging studies performed at [facility] on 06/04/2014, 05/27/2015 and 08/11/2016. There are [...] Most Recently Relevant to Health Maintenance Insurance [facility] MEDICARE ADVANTAGE MEDICARE [facility] MEDICARE ADVANTAGE MEDICARE Advance Directives For more information, please contact: [phone] * LIMITED - No CPR (Latest Code Status on File) Date Activated Date Inactivated Comments 05/04/2024 4:12 PM Question Answer Comments Cardio Resuscitation: No Chest CompressionsNo De fibrillation/Cardioversion Ventilation: No Intubation * Full Code Date Activated Date Inactivated Comments 09/28/2023 2:18 PM 10/01/2023 9:29 PM Care Teams Plating Tank Operator Apprentice Relationship Specialty Start Date End Date Sylvia Layton NP [address] [place] [address] PCP - General Family Medicine 10/03/23 Jaylene Wolf MD PhD [address] [facility] [address] [place] [address] Consulting Physician Neurology 07/11/23 Alannah Gentile PA [address] [facility] [address] [place] [address] Physician Volunteer Services Assistant Physician Volunteer Services Assistant 07/11/23 Juvencio Cheney MD [address] [place] [address] NEUROLOGY SLEEP [facility] [address] [place] [address] Consulting Physician Sleep Medicine 08/19/23 Sneha Nayak, OT Occupational Therapist Occupational Therapy 11/18/23 Zara Hatch WOOD TILE INSTALLER [address] [facility] [address] Nurse Practitioner Hospice and Palliative Medicine 02/01/24 Tabitha Mcbride NP [address] [facility] [address] [facility] [address] [place] [address] Nurse Practitioner Hospice and Palliative Medicine 05/04/24
== END 2024-06-20 13:06 | disposition home or self-care (01) ==
PROVIDERS: PCP Nurse Practitioner Family; Visit Provider Internal Medicine Cardiovascular Disease
DX: Z95.4 Presence of other heart-valve replacement (principal); I34.2 Nonrheumatic mitral (valve) stenosis
CPT/HCPCS: 93306

== ENCOUNTER 2024-10-11 15:47 | Outpatient (CLI) | payer MEDICARE, SELFPAY ==
--- NOTE | ~2024-10-11 | XR_ITS ---
Lumbosacral Spine: AP and lateral views Clinical History: Pain Findings: There is mild levoscoliosis. There is grade 1 anterolisthesis of L4-L5. There is severe fac et arthropathy throughout the lumbar spine. There is mild degenerative disc narrowing throughout. The sacroiliac joints are normally outlined. Impression: Extensive facet arthropathy of mild degenerative disc narrowing of the lumbar spine. Grade 1 anterolisthesis of L4 over L5. Mild levoscoliosis. Reviewed, dictated and finalized at location M. Impression: Extensive facet arthropathy of mild degenerative disc narrowing of the lumbar s pine. Grade 1 anterolisthesis of L4 over L5. Mild levoscoliosis.
--- NOTE | ~2024-10-11 | XR_ITS ---
Cervical Spine: AP, lateral, open-mouth views Clinical History: Pain Findings: The normal lordotic curve is maintained. No fracture or subluxation seen. There is moderate degenerative disc narrowing at C3-C4, C4-C5, C5-C6. Mild facet joint degenerative changes are presen t. Pre-vertebral soft tissues are unremarkable. Impression: Mild degenerative spondylosis overall, as above. Reviewed, dictated and finalized at location . Impression: Mild degenerative spondylosis overall, as above.
--- NOTE | ~2024-10-11 | XR_ITS ---
XR hip RT min 2V 10/11/2024 16:25 INDICATION: Right hip pain after fall PROCEDURE: 2 views right hip COMPARISON: No prior studies for comparison. FINDINGS: Fracture, dislocation or subluxation is not identified. The soft tissues appear within norm al limits. No foreign bodies are identified. IMPRESSION: 1: NO ACUTE BONE OR JOINT ABNORMALITY IDENTIFIED. Reviewed, dictated and finalized at location A.
--- OUTSIDE RECORDS SUMMARY | 2024-10-11 15:50 | XMS_ITS | Referral Summary ---
Author Organization [facility] Address [address] [place] [address] Care Team Providers Care Team Truck Driver Name Role Phone Jaylene Wolf MD PhD Unavailab le Alannah Gentile Unavailable [phone] Juvencio Cheney MD Unavailable Sylvia Laytno AIRPLANE ELECTRICAL REPAIRER Primary Care Provider [phone] Sneha Nayak OT Unavailable Unavailab le Zara Hatch AIRPLANE ELECTRICAL REPAIRER Unavailable [phone] Tabitha Mcbride AIRPLANE ELECTRICAL REPAIRER Unavailable [phone] Encounters Date Type Department Care Team Description 10/10/2024 10:08 AM CDT - 10/10/2024 11:59 PM CDT Hospital Encounter [facility] Radiology [facility] [address] [place] [address] Jaylene Wolf MD PhD Daysi Muñoz MD PhD ALS (amyotrophic lateral sclerosis) (HCC) Discharge Disposition: Discharge to home or self care 10/09/2024 Telephone [facility] Neuro Muscle [address] [facility] 6th [place] [address] [place] [phone] Yulia Burroughs RN 10/09/2024 Telephone [facility] Neuro Muscle [address] [facility] 6th [place] [address] [place] [address] Yulia Burroughs RN 10/09/2024 Orders Only [facility] Neuro [facility]cle [address] [facility] 6th [place] [address] [place] [address] Yulia Burroughs, ZULEIKA ALS (amyotrophic lateral sclerosis) (HCC) (Primary Dx) 10/08/2024 1:00 PM CDT Residential Visit [facility] Palliative Care [address] [place] [address] Zara Hatch NP Acute post-traumatic headache, not intractable (Primary Dx) 09/28/2024 Plan of Care Documentation [facility] Physical Therapy [facility] [address] [place] [address] 09/28/2024 10:00 AM CDT Therapy [facility] Physical Therapy [facility] [address] [place] [address] Helena Allen, ZULLY ALS (amyotrophic lateral sclerosis) (HCC) (Primary Dx) 09/24/2024 Documentation [facility] Neuro Muscle [address] [facility] 6th [place] [address] [place] [address] 09/20/2024 2:00 PM CDT Telemedicine [facility] Neuro Muscle [address] [facility] 6th [place] [address] [place] [address] Kiarra Atkinson NP ALS (amyotrophic lateral sclerosis) (HCC) (Primary Dx); 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) 08/15/2024 Telemedicine [facility] Stroke [address] [facility] 6th [address] [place] [phone] Juvencio Cheney MD 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); ALS (amyotrophic lateral sclerosis) (HCC) 08/10/2024 11:00 AM CDT Residential Visit [facility] Palliative Care [address] [place] [address] Tabitha Mcbride NP Palliative care encounter (Primary Dx); ALS (amyotrophic lateral sclerosis) (HCC); Dysphagia, unspecified type; 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) 07/26/2024 2:00 PM CDT - 07/27/2024 12:24 PM CDT Hospital Encounter [facility] [address] [place] [address] Elijah Hernandez MD Liu, MD Naga Reynolds Gina Nicole, MD Abdominal pain (Primary Dx); Gastrostomy tube dysfunction (HCC); Cellulitis of abdominal wall; ALS (amyotrophic lateral sclerosis) ([facility]) Discharge Disposition: Discharge to home or self care 07/26/2024 Telephone [facility] Scheduling [address] [place] [address] Kiarra Atkinson NP Scheduling Appointments 07/26/[address] [place] [address] Alma Britton RN 07/19/2024 Telephone [facility] Neuro Muscle [address] [facility] 6th [place] [address] [place] [address] Khris Lucio, ZULEIKA 07/11/2024 Orders Only [facility] Palliative Care [address] [place] [phone] Tabitha Mcbride NP Right wrist pain (Primary Dx) from Last 3 Months Allergies No known active allergies Medications escitalopram (LEXAPRO) 10 mg tabletIndication s:major depressive disorder Take 1 tablet (10 mg total) by mouth daily Active atorvastatin (LIPITOR) 20 mg tabletIndication s:hyperlipidemia Take 1 tablet (20 mg total) by mouth nightly Active oxyBUTYnin XL (DITROPAN-XL) 10 mg 24 hr tabletIndication s:Bladder Hyperactivity Take 2 tablets (20 mg total) by mouth daily Active alendronate (FOSAMAX) 70 mg tabletIndication s:Osteoporosis in Male Patient Take 1 tablet (70 mg total) by mouth every 7 days Take in the morning with a full glass of water, on an empty stomach, and do not take anything else by mouth or lie down for the next 30 min. Active warfarin sodium (WARFARIN ORAL)Indications :blood thinner 7.5mg Mon/Tue/Tue 10mg //S at/Sun. 03/14/19 10 Active acetaminophen (TYLENOL) 500 mg tabletIndication s:Pain Take 500 mg by mouth every 6 (six) hours as needed for pain. Indications : pain Active lidocaine (LIDODERM) 5 % Place 1 patch on the skin daily as needed for pain for 12 hours Remove & discard patch within 12 hours or as directed by MD, can place to area around g tube site, as well as right wrist. 5 patch 1 07/28/19 25 Active riluzole (RILUTEK) 50 mg tabletIndication s:ALS (amyotrophic lateral sclerosis) (HCC) TAKE 1 TABLET BY MOUTH EVERY 12 HOURS 200 tablet 2 10/09/19 25 Active oxyCODONE-acetam inophen (PERCOCET) 5-325 mg per tabletIndication s:Pain,Head trauma Take 1 tablet by mouth every 8 (eight) hours as needed for pain for up to 14 days 42 tablet 10/09/19 25 025 Active riluzole (RILUTEK) 50 mg tablet TAKE 1 TABLET BY MOUTH EVERY 12 HOURS 200 tablet 2 02/02/20 24 025 Discontinued oxyCODONE-acetam inophen (PERCOCET) 5-325 mg per tabletIndication s:Pain,Head trauma Take 1 tablet by mouth every 8 (eight) hours as needed for pain for up to 14 days 42 tablet 10/09/19 25 025 Discontinued oxyCODONE-acetam inophen (PERCOCET) 5-325 mg per tabletIndication s:Pain,Head trauma Take 1 tablet by mouth every 8 (eight) hours as needed for pain for up to 14 days 42 tablet 10/09/19 25 025 Discontinued oxyCODONE-acetam inophen (PERCOCET) 5-325 mg per tabletIndication s:Pain,Head trauma Take 1 tablet by mouth every 8 (eight) hours as needed for pain for up to 14 days 42 tablet 10/09/19 25 025 Discontinued(Re order) Active Problems Problem Noted Date Diagnosed Date Abdominal pain 07/26/2024 Assessment & Plan (07/27/2024 10:53 AM CDT): Hx of ALS, SP G-tube in 09/2023, had problem with stability managed with extra stitch. Now presenting with 3 days of abdominal pain and drainage (white and large amount) from G Tube. She reports generalized tenderness around the G-tube, mild redness, otherwise exam reassuring. She also has no fever, or documented leukocytosis. Her CT scan with mild soft tissue thickening along the gastrostomy tube likely representing the tract without evidence of soft tissue stranding. - Patient was started on cephalexin in ED for possible infection/cellulitis. - Low probability for cellulitis but given pain, mild redness, tenderness and discharge will continue with ABx for especially patient may have surgical intervention. - IR exchanged tube on 07/27. - Discussed with IR, do not need to keep her from their perspective. Exchange of G Tube went well, did not notice any sergo signs of infection. Minimal erythema on my exam, minimal blood from exchange today. Assessment & Plan (07/26/2024 9:03 PM CDT): - hx of ALS, SP G-tube in 09/2023, had problem with stability managed with extra stitch. -presenting with 3 days of abdominal pain and drainage (white and large amount). -generalized tenderness around the G-tube, mild redness, no discharge on my exam as the gauze was recently exchanged. -no leucocytosis, no documented fever. -CT scan showing mild soft tissue thickening along the gastrostomy tube likely representing the tract without evidence of soft tissue stranding. -patient was started on cephalexin in ED for possible infection/cellulitis. -Low probability for cellulitis but given pain, mild redness, tenderness and discharge will continue with AB for especially patient may have surgical intervention. -pain control -IR to see patient in AM. -NPO after midnight -hold warfarin and check INR, once it is subtherapeutic will start heparin drip. ALS (amyotrophic lateral sclerosis) 07/26/2024 Assessment & Plan (07/27/2024 7:47 AM CDT): -Follows up with neurology as outpatient. -CW riluzole. Assessment & Plan (07/26/2024 9:03 PM CDT): -Follows up with neurology as outpatient. -CW riluzole. Anxiety 07/26/2024 Assessment & Plan (07/27/2024 7:47 AM CDT): - CW escitalopram. Assessment & Plan (07/26/2024 9:03 PM CDT): - CW escitalopram. HLD (hyperlipidemia) 07/26/2024 Assessment & Plan (07/27/2024 7:47 AM CDT): CW atorvastatin. Assessment & Plan (07/26/2024 9:03 PM CDT): CW atorvastatin. H/O aortic valve replacement 07/26/2024 Assessment & Plan (07/27/2024 10:15 AM CDT): -On warfarin for this at home. -Will resume at this time. Assessment & Plan (07/26/2024 9:06 PM CDT): -on warfarin; given possible procedure, will hold it and check INR, once subtherapeutic, will start heparin drip. ALS (amyotrophic lateral sclerosis) 08/19/2023 Restrictive lung mechanics due to neuromuscular disease 08/19/2023 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 Subtherapeutic international normalized ratio (I NR) 03/20/2021 Cerebellar stroke 12/19/2020 MCC (current) use of anticoagulants [Z79.0 1] 08/09/2017 [...] you have a drink containing alcohol? Never 10/10/2024 Q2: How many drinks containi ng alcohol do you have on a typical day when you are drinking? Patient does not drink Q3: How often do you have si x or more drinks on one occasion? Never 10/10/2024 PHQ-2 Answer Date Recorded PHQ-2 Total Score (If total score is 3 or more points, staff should administer the PHQ-9) 0 09/28/2023 PHQ-9 Answer Date Recorded PHQ-9 Total Score 0 09/28/2023 Personal Safety Answer Date Recorded Have you ever been in or are you currently in a harmful physical or emotional relationship or is someone making you feel afraid or unsafe? Denies 10/10/2024 Comments Unknown Sex and Gender Information Value Date Recorded Sex Assigned at Not on file Legal Sex Female 7:37 PM [employer] Gender Identity Not on file Sexual Orientation Not on file Last Filed Vital Signs Vital Sign Reading Time Taken Comments Blood Pressure 156/79 10/10/2024 11:10 AM CDT Pulse 73 10/10/2024 11:10 AM CDT Temperature 36.2 C (97.2 F) 10/10/2024 10:26 AM CDT Respiratory Rate 25 10/10/2024 11:10 AM CDT Oxygen Saturation 94% 10/10/2024 11:10 AM CDT Inhaled Oxygen Concentration - - Weight 77.1 kg (170 lb) 10/10/2024 10:29 AM CDT Height 165.1 cm (5' 5) 07/26/2024 7:25 PM CDT Body Mass Index 28.29 07/26/2024 7:25 PM CDT Plan of Treatment Not on file Procedures Procedure Name Priority Date/Time Associated Diagnosis Comments CHANGE G TUBE Schedule Routine, Read Routine (OP Routine) 10/10/2024 10:59 AM CDT ALS (amyotrophic lateral sclerosis) (HCC) CHANGE G TUBE ED 07/27/2024 8:28 AM CDT EGFR Timed 07/27/2024 6:49 AM CDT COMPREHENSIVE METABOLIC PANEL Timed 07/27/2024 6:49 AM CDT CBC WITHOUT DIFFERENTIAL Timed 07/27/2024 6:49 AM CDT TYPE AND SCREEN Timed 07/26/2024 9:13 PM CDT APTT Routine 07/26/2024 9:13 PM CDT PROTIME-INR Routine 07/26/2024 9:13 PM CDT ECG 12-LEAD Routine 07/26/2024 4:49 PM CDT TROPONIN I HIGH-SENSITIVITY 2-HOUR Timed 07/26/2024 4:[address] ABDOMEN PELVIS W CONTRAST ED 07/26/2024 3:56 PM CDT URINALYSIS AND REFLEX TO MICROSCOPIC STAT 07/26/2024 3:42 PM CDT POCT CREATININE - DEVICE Routine 07/26/2024 3:29 PM CDT TROPONIN I HIGH-SENSITIVITY SERIES (BASELINE, 2HR, 4HR, 6HR) STAT 07/26/2024 2:11 PM CDT EGFR STAT 07/26/2024 1:40 PM CDT DIFFERENTIAL AUTO STAT 07/26/2024 1:4 0 PM CDT LIPASE STAT 07/26/2024 1:40 PM CDT COMPREHENSIVE METABOLIC PANEL STAT 07/26/2024 1:40 PM CDT CBC WITH AUTO DIFFERENTIAL STAT 07/26/2024 1:40 PM CDT SCREENING MAMMOGRAM 2D BILATERAL Schedule Routine, Read Routine (OP Routine) 10/05/2017 4:23 PM CDT Encounter for screening mammogram for malignant neoplasm of breast COLONOSCOPY REPORT 08/09/2014 from Last 3 Months or Most Recently Relevant to Health Maintenance Results * IR Change G Tube (10/10/2024 10:59 AM CDT) Anatomical Region Laterality Modality Body N/A Radio Fluoroscop y 10/10/2024 1:56 PM CDT Impressions 10/10/2024 4:40 PM CDT Successful percutaneous 18-Tristanian 4 cm CLINT[place] huerta G button exchange. Dictated by: Logan Pineda MD The radiology attending physician has personally reviewed this study, and had reviewed and/or edited this written report and agrees with it. Electronically signed by: Daysi Muñoz MD, PhD Narrative 10/10/2024 4:40 PM CDT EXAMINATION: GASTROSTOMY TUBE REPLACEMENT HISTORY/INDICATION: 73-year-old female with gastrostomy button which fell out after a trauma for fall 2 weeks ago, which she were replaced into the tract in the interim, who presents for gastrostomy exchange. ATTENDING PRESENCE: Daysi Muñoz MD, PhD, the attending radiologist was present from the beginning to the end of the procedure. RESIDENT: Logan Pineda MD SEDATION: None TECHNIQUE: The risks, benefits and alternatives were discussed and informed consent was obtained. Prior to beginning the procedure, [place] Protocol was performed to confirm the patient's identity and the planned procedure. The fluoroscopy time has been recorded in the electronic medical record. The existing 18-Tristanian G-tube was removed from the tract after the balloon was deflated. Through the tract, a new 18-Tristanian 4 cm gastrostomy button was advanced in the balloon inflated under fluoroscopy. Contrast injection confirmed appropriate positioning of the catheter within the stomach. A sterile dressing was applied. ESTIMATED BLOOD LOSS: Minimal. CONDITION: Stable DISCHARGED TO: home. FINDINGS: Fluoroscopic spot image demonstrates the gastrostomy catheter with its tip in the body of the stomach. No complications are seen. Procedure Note Daysi Muñoz MD PhD - 10/10/2024 EXAMINATION: GASTROSTOMY TUBE REPLACEMENT HISTORY/INDICATION: 73-year-old female with gastrostomy button which fell out after a trauma for fall 2 weeks ago, which she were replaced into the tract in the interim, who presents for gastrostomy exchange. ATTENDING PRESENCE: Daysi Muñoz MD, PhD, the attending radiologist was present from the beginning to the end of the procedure. RESIDENT: Logan Pineda MD SEDATION: None TECHNIQUE: The risks, benefits and alternatives were discussed and informed consent was obtained. Prior to beginning the procedure, [place] Protocol was performed to confirm the patient's identity and the planned procedure. The fluoroscopy time has been recorded in the electronic medical record. The existing 18-Tristanian G-tube was removed from the tract after the balloon was deflated. Through the tract, a new 18-Tristanian 4 cm gastrostomy button was advanced in the balloon inflated under fluoroscopy. Contrast injection confirmed appropriate positioning of the catheter within the stomach. A sterile dressing was applied. ESTIMATED BLOOD LOSS: Minimal. CONDITION: Stable DISCHARGED TO: home. FINDINGS: Fluoroscopic spot image demonstrates the gastrostomy catheter with its tip in the body of the stomach. No complications are seen. IMPRESSION: Successful percutaneous 18-Tristanian 4 cm [place] huerta G button exchange. Dictated by: Logan Pineda MD The radiology attending physician has personally reviewed this study, and had reviewed and/or edited this written report and agrees with it. Electronically signed by: Daysi Muñoz MD, PhD Jaylene Bonillaefrain Maryann ROSENBAUM PhD IMG IR PRO CEDURES Final Result * IR Change G Tube (07/27/2024 8:28 AM CDT) Anatomical Region Laterality Modality Body N/A X-Ray Angiograph y 07/27/2024 8:33 AM CDT Impressions 07/27/2024 3:48 PM CDT Successful percutaneous gastrostomy catheter exchange for 18 Tristanian 4 cm gastrostomy button. Dictated by: Satya Mondragon MD PHD The radiology attending physician has personally reviewed this study, and had reviewed and/or edited this written report and agrees with it. Electronically signed by: Mart Kan M.D. Narrative 07/27/2024 3:48 PM CDT EXAMINATION: GASTROSTOMY TUBE EXCHANGE HISTORY/INDICATION: 73-year-old with malfunctioning gastrostomy tube. The patient requested button placement for ease of use. ATTENDING PRESENCE: Mart Kan M.D., the attending radiologist was present from the beginning to the end of the procedure. SEDATION: The patient did not require conscious sedation for the procedure. TECHNIQUE: Prior to beginning the procedure, [place] Protocol was performed to confirm the patient's identity and the planned procedure. The fluoroscopy time has been recorded in the electronic medical record. Maximum sterile barriers including cap, mask, hand hygiene, sterile gloves, sterile gown, large sterile drape and 2% chlorhexidine for cutaneous antisepsis were used. The skin over the stomach and the existing catheter was sterilely prepped, draped and infiltrated with 1% lidocaine. Using fluoroscopic guidance, a guidewire was passed through the existing catheter and placed in the stomach. The existing catheter was then removed over the wire. The tract was measured to select a button. A 18-Tristanian by 4 cm gastrostomy button was placed with its tip in the body of the stomach. Contrast injection confirmed appropriate positioning of the catheter within the body of the stomach. A sterile dressing was applied. ESTIMATED BLOOD LOSS: Minimal. CONDITION: Stable DISCHARGED TO: home. FINDINGS: Fluoroscopic spot image demonstrates the gastrostomy catheter with its tip in the body of the stomach. No complications are seen. Procedure Note Mart Kan MD - 07/27/2024 EXAMINATION: GASTROSTOMY TUBE EXCHANGE HISTORY/INDICATION: 73-year-old with malfunctioning gastrostomy tube. The patient requested button placement for ease of use. ATTENDING PRESENCE: Mart Kan M.D., the attending radiologist was present from the beginning to the end of the procedure. SEDATION: The patient did not require conscious sedation for the procedure. TECHNIQUE: Prior to beginning the procedure, [place] Protocol was performed to confirm the patient's identity and the planned procedure. The fluoroscopy time has been recorded in the electronic medical record. Maximum sterile barriers including cap, mask, hand hygiene, sterile gloves, sterile gown, large sterile drape and 2% chlorhexidine for cutaneous antisepsis were used. The skin over the stomach and the existing catheter was sterilely prepped, draped and infiltrated with 1% lidocaine. Using fluoroscopic guidance, a guidewire was passed through the existing catheter and placed in the stomach. The existing catheter was then removed over the wire. The tract was measured to select a button. A 18-Tristanian by 4 cm gastrostomy button was placed with its tip in the body of the stomach. Contrast injection confirmed appropriate positioning of the catheter within the body of the stomach. A sterile dressing was applied. ESTIMATED BLOOD LOSS: Minimal. CONDITION: Stable DISCHARGED TO: home. FINDINGS: Fluoroscopic spot image demonstrates the gastrostomy catheter with its tip in the body of the stomach. No complications are seen. IMPRESSION: Successful percutaneous gastrostomy catheter exchange for 18 Tristanian 4 cm gastrostomy button. Dictated by: Satya Mondragon MD PHD The radiology attending physician has personally reviewed this study, and had reviewed and/or edited this written report and agrees with it. Electronically signed by: Mart Kan M.D. Kimmy Lara MD IMG IR PROCEDURES Fi nal Result * eGFR (07/27/2024 6:49 AM CDT) eGFR >90 >=60 mL/min/1. 73 m2 Comment: Interpretive Data Reference Interval Normal >/= 90 mL/min/1.73m2 Mildly decreased* 60 - 89 mL/min/1.73m2 Mildly to moderately decreased 45 - 59 mL/min/1.73m2 Moderately to severely decreased 30 - 44 mL/min/1.73m2 Severely decreased 15 - 29 mL/min/1.73m2 Kidney Failure < 15 mL/min/1.73m2 *Relative to young adult level Estimated glomerular filtration rate is determined by the 2020 CKD-EPI equation recommended by the National Kidney Foundation (A Unifying Approach to GFR Estimation: Recommendations of the NKF-ASK Task Force on Reassessing the Inclusion of Race in Diagnosing Kidney Disease, JASN 2020). The CKD-EPI equation should not be used for patients with unstable renal function and has not been validated in children and those over 70. Current interpretive data was last reviewed 2021. Blood 07/27/2024 6:49 AM CDT 07/27/2024 6:53 AM CDT Gregor MIRANDA LAB BLOOD ORDERABLES Final R esult [facility] Department [place] [address] * (ABNORMAL) CBC without differential (07/27/2024 6:49 AM CDT) WBC 4.92 3.80 - 9.90 K/cumm Hgb 11.3(L) 11.9 - 15.5 g/dL [facility] Hct 34.0(L) 35.6 - 45.5 % [facility] Plt 225 150 - 400 K/cumm [facility] MPV 9.2 9.1 - 12.3 fL [facility] RBC 3.82(L) 3.90 - 5.20 M/cumm [facility] MCV 89.0 81.3 - 96.4 fL [facility] MCH 29.6 27.1 - 33.3 pg [facility] MCHC 33.2 32.3 - 35.7 g/dL [facility] RDW CV 12.9 11.1 - 14.9 % [facility] RDW SD 42.0 35.7 - 48.1 fL [facility] NRBC abs 0.00 0.00 - 0.01 K/cumm [facility] Blood 07/27/2024 6:49 AM CDT 07/27/2024 6:53 AM CDT us Gregor MIRANDA LAB BLOOD ORDERABLES Final R esult [facility] Department [place] [address] * (ABNORMAL) Comprehensive metabolic panel (07/27/2024 6:49 AM CDT) Sodium 142 135 - 145 mmol/L Potassium, pl 3.8 3.3 - 4.9 mmol/L [facility] Chloride 106 97 - 110 mmol/L [facility] CO2 27 22 - 32 mmol/L [facility] Anion gap 9 2 - 15 mmol/L [facility] BUN 11 6 - 25 mg/dL [facility] Creatinine 0.69 0.60 - 1.10 mg/dL [facility] Glucose 93 70 - 199 mg/dL [facility] Comment: Interpretive Data Fasting glucose >/= 126 mg/dl is diagnostic for diabetes. Fasting is defined as no caloric intake for at least 8 hours. Fasting glucose between 100 mg/dl to 125 mg/dl is diagnostic of prediabetes. In a patient with classic symptoms of hyperglycemia or hyperglycemic crisis, a random glucose >/= 200 mg/dl is diagnostic for diabetes. In the absence of unequivocal hyperglycemia, results should be confirmed by repeat testing. The classification and Diagnosis of Diabetes Diabetes Care 2021; 46: S19-S40. Current interpretive data was last revised 2022. Calcium 9.5 8.5 - 10.3 mg/dL [facility] Bilirubin, total 2.9(H) 0.1 - 1.2 mg/dL [facility] Protein, pl 6.4(L) 6.5 - 8.5 g/dL [facility] Albumin 4.1 3.5 - 5.0 g/dL [facility] Alk phos 83 40 - 130 Units/L [facility] ALT 16 7 - 45 Units/L [facility] AST 29 10 - 45 Units/L [facility] Blood 07/27/2024 6:49 AM CDT 07/27/2024 6:53 AM CDT us Gregor MIRANDA LAB BLOOD ORDERABLES Final R esult Performing Organization Address [facility] Co de Phone Number [facility] [place] [employer] [place] [address] * (ABNORMAL) aPTT (07/26/2024 9:13 PM CDT) aPTT 48(H) 28 - 38 sec Comment: Interpretive Data Heparin therapeutic range: 66.0 - 100.0 seconds. Range based on correlation with therapeutic heparin activity range of 0.3 - 0.7 Units/mL. Current interpretive data was last revised on 2022. Blood 07/26/2024 9:13 PM CDT 07/26/2024 9:24 PM CDT Deshawn Hammonds MD LAB BLOOD ORDERAB LES Final Result Performing Organization Address [facility] de Phone Number [facility] [place] [employer] [place] [address] * (ABNORMAL) Protime-INR (07/26/2024 9:13 PM CDT) PT 37.6(H) 9.7 - 13.0 sec INR 3.40(H) 0.90 - 1.20 [facility] Comment: Interpretive data Oral anticoagulant therapeutic ranges: Venous thromboembolism prophylaxis or treatment: 2.0-3.0 CARDIOLOGY Standard range: 2.0-3.0 High-intensity range: 2.5-3.5 Refer to indication-specific guidelines for appropriate target ranges for prosthetic heart valve replacement. Current interpretive data was last revised on 2019. Blood 07/26/2024 9:13 PM CDT 07/26/2024 9:24 PM CDT Deshawn Hammonds MD LAB BLOOD ORDERAB LES Final Result Performing Organization Address [facility] Co de Phone Number [facility] [place] [address] * Type and screen (07/26/2024 9:13 PM CDT) ABO Rh A Positive Christiana, indirect Negative [facility] Blood 07/26/2024 9:13 PM CDT 07/26/2024 9:33 PM CDT Narrative [facility] - 07/26/2024 10:37 PM CDT Has the patient had Daratumumab or Isatuximab in the past 6 months?->Unknown Deshawn Hammonds MD LAB BLOOD BANK TE ST ORDERABLES Final Result Performing Organization Address [facility] de Phone Number [facility] [place] [address] * ECG 12-LEAD (07/26/2024 4:49 PM CDT) Narrative [facility] - 07/26/2024 4:49 PM CDT Elijah Hernandez MD 07/26/2024 4:56 PM ECG 12 lead Date/Time: 07/26/2024 4:49 PM Performed by: Elijah Hernandez MD Authorized by: Kimmy Lara MD Rate: ECG rate: 71 beats per minute ECG rate assessment: normal Rhythm: Rhythm: sinus rhythm Ectopy: Ectopy: none QRS: QRS axis: Normal QRS intervals: Normal Conduction: Conduction: normal ST segments: ST segments: Non-specific T waves: T waves: non-specific Previous ECG: Previous ECG: Compared to current Date of previous EC12/22/2013 Similarity: No change Interpretation: Interpretation: No significant change Recommended Follow-up: Recommended follow up: further workup in the ED Kimmy Lara MD ECG ORDERABLES Domonique l Result [facility] * Troponin I high-sensitivity 2-hour (07/26/2024 4:33 PM CDT) Trop I hs 8 <=17 ng/L Comment: Interpretive Data For further hscTnI resources including the diagnostic algorithm and an aid in interpretation, copy and paste this link: https://bjhlab.testcatalog.org/show/hsTrop-[email or web address] Current Interpretive Data last revised 2019. Trop I hs delta 3 ng/L [facility] Trop I hs interp Insignificant [facility] H Blood 07/26/2024 4:33 PM CDT 07/26/2024 4:46 PM CDT Kimmy Lara MD LAB BLOOD ORDERABLES Final Result Performing Organization Address [facility] Co de Phone Number [facility] [place] [address] * CT Abdomen Pelvis W Contrast (07/26/2024 3:56 PM CDT) Anatomical Region Laterality Modality Body N/A Computed Tomogra phy 07/26/2024 4:51 PM CDT Impressions 07/26/2024 9:15 PM CDT 1. No acute abnormality in the abdomen or pelvis. 2. Gastrostomy tube terminates within the stomach without evidence of a retention device or insufflated balloon noted. Dictated by: Moris Kearney M.D. The radiology attending physician has personally reviewed this study, and had reviewed and/or edited this written report and agrees with it. Electronically signed by: John Oneil M.D. Narrative 07/26/2024 9:15 PM CDT EXAMINATION: CT ABDOMEN PELVIS W CONTRAST HISTORY: Pain at the gastrostomy tube site, tenderness to palpation in the epigastric and right upper quadrant regions TECHNIQUE: CT images of the abdomen and pelvis were obtained with intravenous contrast according to standard protocol. COMPARISON: 05/27/2011 FINDINGS: There is a 6 mm calcified pulmonary nodule in the right lower lobe on series 3 image 29. Heart is enlarged. There is mild mitral annular calcifications. Aortic valve replacement noted. No pericardial effusion. Small hiatal hernia. Unchanged hypoattenuating lesions within the liver. No new suspicious liver lesion. The gallbladder is surgically absent with cholecystectomy clips noted. No intrahepatic or extrahepatic biliary duct dilation. The spleen, pancreas, and adrenal glands are normal. The kidneys are normal. There is bilateral right greater than left extrarenal pelvises. No hydroureteronephrosis. Urinary bladder is normal. The uterus is normal. No suspicious adnexal mass. A gastrostomy tube terminates within the stomach. There is no evidence of an insufflated balloon or retention device noted. There is mild soft tissue thickening along the gastrostomy tube likely representing the tract without evidence of soft tissue stranding. The small and large bowel are normal caliber without evidence of obstruction. No pneumoperitoneum. No pelvic free fluid. 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 No suspicious osseous lesion. Procedure Note John Oneil MD - 07/26/2024 EXAMINATION: CT ABDOMEN PELVIS W CONTRAST HISTORY: Pain at the gastrostomy tube site, tenderness to palpation in the epigastric and right upper quadrant regions TECHNIQUE: CT images of the abdomen and pelvis were obtained with intravenous contrast according to standard protocol. COMPARISON: 05/27/2011 FINDINGS: There is a 6 mm calcified pulmonary nodule in the right lower lobe on series 3 image 29. Heart is enlarged. There is mild mitral annular calcifications. Aortic valve replacement noted. No pericardial effusion. Small hiatal hernia. Unchanged hypoattenuating lesions within the liver. No new suspicious liver lesion. The gallbladder is surgically absent with cholecystectomy clips noted. No intrahepatic or extrahepatic biliary duct dilation. The spleen, pancreas, and adrenal glands are normal. The kidneys are normal. There is bilateral right greater than left extrarenal pelvises. No hydroureteronephrosis. Urinary bladder is normal. The uterus is normal. No suspicious adnexal mass. A gastrostomy tube terminates within the stomach. There is no evidence of an insufflated balloon or retention device noted. There is mild soft tissue thickening along the gastrostomy tube likely representing the tract without evidence of soft tissue stranding. The small and large bowel are normal caliber without evidence of obstruction. No pneumoperitoneum. No pelvic free fluid. 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 No suspicious osseous lesion. IMPRESSION: 1. No acute abnormality in the abdomen or pelvis. 2. Gastrostomy tube terminates within the stomach without evidence of a retention device or insufflated balloon noted. Dictated by: Moris Kearney M.D. The radiology attending physician has personally reviewed this study, and had reviewed and/or edited this written report and agrees with it. Electronically signed by: John Oneil M.D. us Kimmy Lara MD IMG CT PROCEDURES Fi nal Result * Urinalysis reflex to microscopic (07/26/2024 3:42 PM CDT) Color, ur Straw Yellow Clarity, ur Clear Clear [facility] Specific gravity, ur 1.005 1.003 - 1.[address] [facility] pH, urine 7.0 [facility] Comment: Interpretive Data U rine pH is affected by diet, medications, systemic acid-base disturbances, and renal tubular function. pH may affect urinary stone formation. For example, urine pH below 6.0 may help reduce the tendency for calcium phosphate stones and pH greater than 6.0 may reduce the tendency for uric acid stone formation. Source: [facility] Current Interpretive Data was last revised on 2017 Protein, ur ql Negative Negative [facility] Glucose, ur ql Negative Negative [facility] Ketones, ur Negative Negative [facility] Bilirubin, ur Negative Negative [facility] Blood, ur Negative Negative [facility] Urobilinogen, ur <2.0 <2.0 mg/dL [facility] Nitrite, ur Negative Negative [facility] Leukocyte esterase, ur Negative Negative [facility] UA reflex comment Reflex conditions for microscopic UA not met. [facility] Urine 07/26/2024 3:42 PM CDT 07/26/2024 3:49 PM CDT Elijah Hernandez MD LAB URINE ORDERABLES Domonique l Result Performing Organization Address [facility] Co de Phone Number [facility] Department [place] [address] * POCT creatinine (07/26/2024 3:29 PM CDT) [facility] Creatinine POC 0.6 0.6 - 1.1 mg/dL Blood 07/26/2024 3:29 PM CDT 07/26/2024 3:29 PM CDT Elijah Hernandez MD LAB POCT ORDERABLES - DEV ICE Final Result Performing Organization Address [facility] de Phone Number [facility] [place] [employer] [place] [address] * Troponin I high-sensitivity series (baseline, 2hr, 4hr, 6hr) (07/26/2024 2:11 PM CDT) [facility] Trop I hs 5 <=17 ng/L Comment: Interpretive Data For further hscTnI resources including the diagnostic algorithm and an aid in interpretation, copy and paste this link: https://bjhlab.testcatalog.org/show/[email or web address] Current Interpretive Data last revised 2019. Blood 07/26/2024 2:11 PM CDT 07/26/2024 3:28 PM CDT us Kimmy Lara MD LAB BLOOD ORDERABLES Final Result Performing Organization Address [facility] Co de Phone Number [facility] [place] [address] * eGFR (07/26/2024 1:40 PM CDT) [facility] eGFR >90 >=60 mL/min/1. 73 m2 Comment: Interpretive Data Reference Interval Normal >/= 90 mL/min/1.73m2 Mildly decreased* 60 - 89 mL/min/1.73m2 Mildly to moderately decreased 45 - 59 mL/min/1.73m2 Moderately to severely decreased 30 - 44 mL/min/1.73m2 Severely decreased 15 - 29 mL/min/1.73m2 Kidney Failure < 15 mL/min/1.73m2 *Relative to young adult level Estimated glomerular filtration rate is determined by the 2020 CKD-EPI equation recommended by the National Kidney Foundation (A Unifying Approach to GFR Estimation: Recommendations of the NKF-ASK Task Force on Reassessing the Inclusion of Race in Diagnosing Kidney Disease, JASN 202). The CKD-EPI equation should not be used for patients with unstable renal function and has not been validated in children and those over 70. Current interpretive data was last reviewed 2021. Blood 07/26/2024 1:40 PM CDT 07/26/2024 3:28 PM CDT us Hugh Davenport MD LAB BLOOD ORDERABLES Final Res ult [facility] [place] [address] * Differential, auto (07/26/2024 1:40 PM CDT) Neutrophil abs 3.75 1.50 - 6.50 K/cumm Imm gran abs 0.02 0.00 - 0.10 K/cumm [facility] Lymphocyte abs 1.18 0.80 - 3.30 K/cumm [facility] Monocyte abs 0.40 0.20 - 0.80 K/cumm [facility] Eosinophil abs 0.03 0.00 - 0.50 K/cumm [facility] Basophil abs 0.02 0.00 - 0.10 K/cumm [facility] Neutrophil pct 69.3 % [facility] Comment: Interpretive Data Percent cell count reference ranges are not reported, since discordance with absolute values may lead to misinterpretation of CBC data. Current Interpretive Data was last revised on 2017. Imm gran pct 0.4 % [facility] Comment: Interpretive Data Percent cell count reference ranges are not reported, since discordance with absolute values may lead to misinterpretation of CBC data. Current Interpretive Data was last revised on 2017. Lymphocyte pct 21.9 % [facility] Comment: Interpretive Data Percent cell count reference ranges are not reported, since discordance with absolute values may lead to misinterpretation of CBC data. Current Interpretive Data was last revised on 2017. Monocyte pct 7.4 % [facility] Comment: Interpretive Data Percent cell count reference ranges are not reported, since discordance with absolute values may lead to misinterpretation of CBC data. Current Interpretive Data was last revised on 2017. Eosinophil pct 0.6 % [facility] Comment: Interpretive Data Percent cell count reference ranges are not reported, since discordance with absolute values may lead to misinterpretation of CBC data. Current Interpretive Data was last revised on 2017. Basophil pct 0.4 % [facility] Comment: Interpretive Data Percent cell count reference ranges are not reported, since discordance with absolute values may lead to misinterpretation of CBC data. Current Interpretive Data was last revised on 2017. Blood 07/26/2024 1:40 PM CDT 07/26/2024 3:28 PM CDT us Hugh Davenport MD LAB BLOOD ORDERABLES Final Res ult [facility] [place] [address] * CBC with auto differential (07/26/2024 1:40 PM CDT) WBC 5.40 3.80 - 9.90 K/cumm Hgb 12.4 11.9 - 15.5 g/dL [facility] Hct 37.4 35.6 - 45.5 % [facility] Plt 232 150 - 400 K/cumm [facility] MPV 9.5 9.1 - 12.3 fL [facility] RBC 4.15 3.90 - 5.20 M/cumm [facility] MCV 90.1 81.3 - 96.4 fL [facility] MCH 29.9 27.1 - 33.3 pg [facility] MCHC 33.2 32.3 - 35.7 g/dL [facility] RDW CV 13.0 11.1 - 14.9 % [facility] RDW SD 42.5 35.7 - 48.1 fL [facility] NRBC abs 0.00 0.00 - 0.01 K/cumm [facility] Blood Venous blood specimen / Unknown 07/26/2024 1:40 PM CDT 07/26/2024 3:28 PM CDT Elijah Hernandez MD LAB BLOOD ORDERABLES Domonique l Result [facility] [place] [address] * Lipase (07/26/2024 1:40 PM CDT) [facility] Lipase 14 10 - 99 Units/L Blood Venous blood specimen / Unknown 07/26/2024 1:40 PM CDT 07/26/2024 3:28 PM CDT Elijah Hernandez MD LAB BLOOD ORDERABLES Domonique l Result Performing Organization Address City/[facility]/ZIP Co de Phone Number [facility] [place] [address] * (ABNORMAL) Comprehensive metabolic panel (07/26/2024 1:40 PM CDT) [facility] Sodium 142 135 - 145 mmol/L Potassium, pl 4.0 3.3 - 4.9 mmol/L [facility] Chloride 104 97 - 110 mmol/L [facility] CO2 26 22 - 32 mmol/L [facility] Anion gap 12 2 - 15 mmol/L [facility] BUN 9 6 - 25 mg/dL [facility] Creatinine 0.64 0.60 - 1.10 mg/dL [facility] Glucose 96 70 - 199 mg/dL [facility] Comment: Interpretive Data Fasting glucose >/= 126 mg/dl is diagnostic for diabetes. Fasting is defined as no caloric intake for at least 8 hours. Fasting glucose between 100 mg/dl to 125 mg/dl is diagnostic of prediabetes. In a patient with classic symptoms of hyperglycemia or hyperglycemic crisis, a random glucose >/= 200 mg/dl is diagnostic for diabetes. In the absence of unequivocal hyperglycemia, results should be confirmed by repeat testing. The classification and Diagnosis of Diabetes Diabetes Care 2021; 46: S19-S40. Current interpretive data was last revised 2022. Calcium 9.8 8.5 - 10.3 mg/dL [facility] Bilirubin, total 2.9(H) 0.1 - 1.2 mg/dL [facility] Protein, pl 7.5 6.5 - 8.5 g/dL [facility] Albumin 4.7 3.5 - 5.0 g/dL [facility] Alk phos 96 40 - 130 Units/L [facility] ALT 18 7 - 45 Units/L [facility] AST 32 10 - 45 Units/L [facility] Blood 07/26/2024 1:40 PM CDT 07/26/2024 3:28 PM CDT us Elijah Hernandez MD LAB BLOOD ORDERABLES Domonique reynolds Result [facility] [place] [address] * Screening Mammogram 2D Bilateral (10/05/2017 4:23 PM CDT) Anatomical Region Laterality Modality Breast Bilateral Mammography Narrative 10/06/2017 2:06 PM CDT Mammogram Technique: Bilateral Full-Field Digital Screening Mammogram was performed. Views obtained: bilateral craniocaudal and bilateral mediolateral oblique. Computer Aided Detection was performed. Mammogram Findings: The present examination has been compared to prior imaging studies performed at [facility] on 06/04/2014, 05/27/2015 and 08/11/2016. [...] compared to prior imaging studies performed at [facility] on 06/04/2014, 05/27/2015 and 08/11/2016. There are scattered areas of fibroglandular density. There is no suspicious abnormality in either breast. Impression: Annual screening mammography is recommended. OVERALL FINAL ASSESSMENT: BI-RADS CATEGORY 1: Negative. Emily Rodríguez MD IMG MAMMO PROCEDURES Final R esult * COLONOSCOPY REPORT (08/09/2014) Anatomical Region Laterality Modality Other Narrative 08/09/2014 Ordered by an unspecified provider. Historical Provider MD JUAREZ PROCEDURE ORDERABLES F inal Result from Last 3 Months or Most Recently Relevant to Health Maintenance Insurance MEDICARE ADVANTAGE MEDICARE [facility] Address: [address] [address] [place] [address] [facility] MEDICARE ADVANTAGE Advance Directives For more information, please contact: [phone] * Full Code (Latest Code Status on File) Date Activated Date Inactivated Comments 10/10/2024 10:19 AM 10/11/2024 4:37 AM * LIMITED - No CPR Date Activated Date Inactivated Comments 07/26/2024 8:01 PM 07/27/2024 4:24 PM Question Answer Comments Provide aggressive medical m anagement before a full cardiopulmonary arrest occurs. 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 Relationship Specialty Start Date End Date Sylvia Layton NP [address] [place] [address] PCP - General Family Medicine 10/03/23 Jaylene Wolf MD PhD [address] [facility] [address] [place], [place] [id number] Consulting Physician Neurology 07/11/23 Alannah Gentile PA [address] [facility] [address] [place], [place] [id number] Physician Icu Clerk Physician Icu Clerk 07/11/23 Juvencio Cheney MD [facility] NEUROLOGY SLEEP MED, [facility] [address] [place] [address] Consulting Physician Sleep Medicine 08/19/23 Sneha Nayak, OT Occupational Therapist Occupational Therapy 11/18/23 Zara Hatch NP [address] [facility] [address] [place] [address] Nurse Practitioner Hospice and Palliative Medicine 02/01/24 Tabitha Mcbride NP [address] [facility] [address] [facility] [address] [place] [address] Nurse Practitioner Hospice and Palliative Medicine 05/04/24
--- OUTSIDE RECORDS SUMMARY | 2024-10-11 15:50 | XMS_ITS | Encounter Summary ---
Author Organization [facility] Healthcare Address [address] [place] [address] Care Team Providers Care Airport Engineer Name Role Phone Jaylene Wolf MD PhD Unavailab le Alannah Gentile Unavailable [phone] Juvencio Cheney MD Unavailable Sylvia Layton HIGH SCHOOL TEACHER Primary Care Provider [phone] Sneha Nayak OT Unavailable Unavailab le Zara Hatch HIGH SCHOOL TEACHER Unavailable [phone] Tabitha Mcbride NP Unavailable [phone] Reason for Visit * Diagnostic Imaging (Routine) - Pending Review Specialty Diagnoses / Procedures Referred By Jasmin figueroa Referred To Contact Radiology Diagnoses ALS (amyotrophic lateral sclerosis) (HCC) Procedures IR Change G Tube IR GJ-Tube Exchange Consult to Interventional Radiology Jaylene Wolf MD PhD [address] [address] Phone: tel: fax: [address] [address] Referral ID Status Reason Start Date Expiration Date V isits Requested Visits Authorized [id number] Pending Review 10/09/2024 11/08/2025 1 1 Encounter Details Date Type Department Care Team ([facility] st Contact Info) Description 10/10/2024 10:08 AM CDT - 10/10/2024 11:59 PM CDT Hospital Encounter [facility] [address] [place] [address] Jaylene Wolf MD PhD [address] 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 Gender Identity Not on file Sexual Orientation Not on file documented as of this encounter Last Filed Vital Signs Vital Sign Reading Time Taken Comments Blood Pressure 156/79 10/10/2024 11:10 AM CDT Pulse 73 10/10/2024 11:10 AM CDT Temperature 36.2 C (97.2 F) 10/10/2024 10:26 AM CDT Respiratory Rate 25 10/10/2024 11:10 AM CDT Oxygen Saturation 94% 10/10/2024 11:10 AM CDT Inhaled Oxygen Concentration - - Weight 77.1 kg (170 lb) 10/10/2024 10:29 AM CDT Height - - Body Mass Index 28.29 07/26/2024 7:25 PM CDT documented in this encounter Functional Status * Audit-C Score Answer Date of Assessment Author 0 10/10/2024 10:25 AM CDT Edilson Bah RN * Question Answer Date of Assessment Author Q1: How often do you have a drink containing alcohol? Never 10/10/2024 10:25 AM CDT Marilee Bah RN Q2: How many drinks containing alcohol do you have on a typical day when you are drinking? Patient does not drink 10/10/2024 10:25 AM CDT Marilee Bah RN Q3: How often do you have six or more drinks on one occasion? Never 10/10/2024 10:25 AM CDT Marilee Bah RN documented as of this encounter Discharge Instructions * Discharge Instructions* Logan Pineda MD - 10/10/2024 11:05 AM CDT Interventional Radiology Outpatient Discharge Instructions/Note Diagnosis:G button dislodged Procedure:G button exchange Limitations: [] You received medication that may affect your judgement. Stay with a responsible person today. Do not drive, operate machinery, make any legal or important decisions, or drink alcohol until tomorrow. No smoking unless another adult is present. Other Diet: You may resume your previous diet. Medication: [x] Usual medications; check with your regular doctor for any questions. Do not take any new pain medicine, sleeping pills or sedatives unless approved by your doctor. [] Prescriptions given for: Procedure Site Care: [] teaching sheet given [x] You may shower today. [x] Change the dressing daily and if it becomes wet or dirty. [x] It is okay to remove the dressing and gently wash the area while in the shower. You may also cover the site with plastic while showering if you wish to clean the site separately with a washcloth and warm soapy water. [x] Do not submerge the catheter under water (no bath tubs, pools, etc.). Drainage Tube Care: [] Flush tube with 5 mL Normal Saline [] Flush tube with 10 mL Normal Saline [] Flush tube once a day [] Flush tube twice a day [] Other: [x] Call Interventional Radiology if there is leakage around the tube or the tube becomes clogged. To contact an Interventional Radiologist at [facility] call [phone] Tuesday through Tuesday from 7:30am-4:30pm. At all other times call [phone] and ask that the Interventional Radiologist be paged. To contact an Interventional Radiologist at [facility] call [phone] Tuesday through Tuesday from 7:30am-3:30pm. To contact an Interventional Radiologist RN at [facility] call [phone] Tuesday through Tuesday from 7:00 am-5:00 pm. To schedule an appointment with Interventional Radiology at [facility] call [phone] Tuesday through Tuesday from 7:30 am-4:00 pm. For after hours, follow the telephone recording prompts to reach the on-call Interventional Radiology physician. Special instructions: Please call Interventional Radiology for any procedure related questions or problems including: Extreme swelling or bruising at the site. Unusual drainage or bleeding from procedure site. Fever of 101.5 F for more than 24 hours. Severe procedure related pain. Follow up care: [] Return to Interventional Radiology on at Please come to: [] 3rd Floor [facility] [] 4th floor [facility] [] [facility] [] [facility] Please call [phone] if you need to schedule a follow up appointment. documented in this encounter Medications at Time of Discharge acetaminophen (TYLENOL) 500 mg tabletIndications:P ain Take 500 mg by mouth every 6 (six) hours as needed for pain. Indications: pain alendronate (FOSAMAX) 70 mg tabletIndications:O steoporosis in Male Patient Take 1 tablet (70 mg total) by mouth every 7 days Take in the morning with a full glass of water, on an empty stomach, and do not take anything else by mouth or lie down for the next 30 min. atorvastatin (LIPITOR) 20 mg tabletIndications:h yperlipidemia Take 1 tablet (20 mg total) by mouth nightly escitalopram (LEXAPRO) 10 mg tabletIndications:m ajor depressive disorder Take 1 tablet (10 mg total) by mouth daily lidocaine (LIDODERM) 5 % Place 1 patch on the skin daily as needed for pain for 12 hours Remove & discard patch within 12 hours or as directed by MD, can place to area around g tube site, as well as right wrist. 5 patch 1 07/27/2024 oxyBUTYnin XL (DITROPAN-XL) 10 mg 24 hr tabletIndications:B ladder Hyperactivity Take 2 tablets (20 mg total) by mouth daily oxyCODONE-acetamino phen (PERCOCET) 5-325 mg per tabletIndications:P ain,Head trauma Take 1 tablet by mouth every 8 (eight) hours as needed for pain for up to 14 days 42 tablet 10/08/2024 riluzole (RILUTEK) 50 mg tabletIndications:A LS (amyotrophic lateral sclerosis) (HCC) TAKE 1 TABLET BY MOUTH EVERY 12 HOURS 200 tablet 2 10/08/2024 warfarin sodium (WARFARIN ORAL)Indications:bl ood thinner 7.5mg Mon/Wed/Fri 10mg Tu/Thur/Sat/ Sun. 03/14/2009 documented as of this encounter Discharge Disposition Disposition Code Departure Means Destination Discharge to home or self care documented in this encounter Miscellaneous Notes * Post-Procedure Note - Logan Pineda MD - 10/10/2024 10:00 AM CDT Radiology Brief Post Procedure Note Attending: Wanda Dragline Engineer: Miriam Sedation/Anesthesia: None Pre-Op/Pre-Procedure Diagnosis: Dislodged G button Post-Op/Post-Procedure Diagnosis: same Procedure Performed: G button replacement Procedure Findings: Successful replacement of 18F 4cm G button Complications: None Estimated Blood Loss: None Specimens: None Condition: Stable Full report to follow. documented in this encounter Plan of Treatment Not on file documented as of this encounter Procedures Procedure Name Priority Date/Time Associated Diagnosis Comments CHANGE G TUBE Schedule Routine, Read Routine (OP Routine) 10/10/2024 10:59 AM CDT ALS (amyotrophic lateral sclerosis) (HCC) documented in this encounter Results * IR Change G Tube (10/10/2024 10:59 AM CDT) Anatomical Region Laterality Modality Body N/A Radio Fluoroscop y 10/10/2024 1:56 PM CDT Impressions 10/10/2024 4:40 PM CDT Successful percutaneous 18-Turkish 4 cm CLINTON huerta G button exchange. [...] was obtained. Prior to beginning the procedure, [place] Protocol was performed to confirm the patient's identity and the planned procedure. The fluoroscopy time has been recorded in the electronic medical record. The existing 18-Turkish G-tube was removed from the tract after the balloon was deflated. Through the tract, a new 18-Turkish 4 cm gastrostomy button was advanced in [...] was obtained. Prior to beginning the procedure, [place] Protocol was performed to confirm the patient's identity and the planned procedure. The fluoroscopy time has been recorded in the electronic medical record. The existing 18-Turkish G-tube was removed from the tract after the balloon was deflated. Through the tract, a new 18-Turkish 4 cm gastrostomy button was advanced in the balloon inflated under fluoroscopy. Contrast injection confirmed appropriate positioning of the catheter within the stomach. A sterile dressing was applied. ESTIMATED BLOOD LOSS: Minimal. CONDITION: Stable DISCHARGED TO: home. FINDINGS: Fluoroscopic spot image demonstrates the gastrostomy catheter with its tip in the body of the stomach. No complications are seen. IMPRESSION: Successful percutaneous 18-Turkish 4 cm CL[place]ON huerta G button exchange. Dictated by: Logan Pineda MD The radiology attending physician has personally reviewed this study, and had reviewed and/or edited this written report and agrees with it. Electronically signed by: Daysi Muñoz MD, PhD Jaylene Wolf MD PhD IMG IR PRO CEDURES Final Result documented in this encounter Visit Diagnoses Diagnosis ALS (amyotrophic lateral sclerosis) (HCC) Amyotrophic lateral sclerosis documented in this encounter Orders Discharge Count Last Ordered Date First Orde red Date DISCHARGE PATIENT 1 10/10/2024 documented in this encounter Care Teams Airport Engineer Relationship Specialty Start Date End Date Sylvia Layton NP [address] [place] [address] PCP - General Family Medicine 10/03/23 Jaylene Wolf MD PhD [address] [facility] [address] [place] [address] Consulting Physician Neurology 07/11/23 Alannah Gentile PA 1 [facility] [address] [place] [address] Physician Dragline Engineer Physician Dragline Engineer 07/11/23 Juvencio Cheney MD [address] [place] [address] NEUROLOGY SLEEP [facility] [address] [place] [address] Consulting Physician Sleep Medicine 08/19/23 Sneha Nayak OT Occupational Therapist Occupational Therapy 11/18/23 Zara Hatch NP [address] [facility] [address] [place] [address] Nurse Practitioner Hospice and Palliative Medicine 02/01/24 Tabitha Mcbride NP [address] [facility] [address] [facility] [address] [place] [address] Nurse Practitioner Hospice and Palliative Medicine 05/04/24 documented as of this encounter
--- OUTSIDE RECORDS SUMMARY | 2024-10-11 15:50 | XMS_ITS | Encounter Summary ---
Author Organization [facility] Address [address] [place] [address] Phone Care Team Providers Care Art Appraiser Name Role Phone Benton Gonzales MD Primary Care Provider [phone] Glenn Thomas MD Primary Care Provider [phone] Cody Lara NP Primary Care Provider [phone] Jaylene Wolf MD PhD Unavailab le Alannah Gentile Unavailable [phone] Juvencio Cheney MD Unavailable Sylvia Layton NP Primary Care Provider [phone] Sneha Nayak OT Unavailable Unavailab le Zara Hatch NP Unavailable [phone] Tabitha Mcbride NP Unavailable [phone] Encounter Details Date Type Department Care Team (Latest Contact Info) Description 05/25/2017 Orders Only [facility] CONVERSION Scanning, Provider Social History Tobacco Use Types Packs/Day Years Used Date Smoking Tobacco: Former Comments Unknown Sex and Gender Information Value Date Recorded Sex Assigned at Not on file 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 Gender Identity Not on file Sexual Orientation [...] active infection Kelsey Segura RN generated from [facility] 08/30/1986 08/30/1986 09/27/2023 7:00 PM C DT documented as of this encounter Care Teams Art Appraiser Relationship Specialty Start Date End Date Benton Gonzales MD [address] [place], [place] [address]KATHY Johnson [address] [address] PCP - General 05/07/16 05/01/19 Glenn Thomas MD [address] [place], [place] [address]KATHY Johnson [address] [address] PCP - General Family Medicine 05/02/19 01/23/23 Cody Lara NP [address] [facility] 1 [facility] [address] [place] [address] PCP - General Nurse Practitioner 01/24/23 10/02/23 Sylvia Layton NP [address] [place] [address] PCP - General Family Medicine 10/03/23 Jaylene Wolf MD PhD [address] [facility] [address] [place] [address] Consulting Physician Neurology 07/11/23 Alannah Gentile PA [address] [facility] [address] [place] [address] Physician Grain Origination Specialist Physician Grain Origination Specialist 07/11/23 Juvencio Cheney MD [address] [place] [address] NEUROLOGY SLEEP [facility] [address] [place] [address] Consulting Physician Sleep Medicine 08/19/23 Sneha Nayak OT Occupational Therapist Occupational Therapy 11/18/23 Zara Hatch NP [address] [facility] [address] [place] [address] Nurse Practitioner Hospice and Palliative Medicine 02/01/24 Tabitha Mcbride NP [address] [facility] [address] [facility] [address] [place] [address] Nurse Practitioner Hospice and Palliative Medicine 05/04/24 documented as of this encounter
--- OUTSIDE RECORDS SUMMARY | 2024-10-11 15:51 | XMS_ITS | Clinical Summary ---
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 [Z79.0 1] 08/09/2017 [...] - 10/10/2024 11:59 PM CDT Hospital Encounter [facility] Radiology [facility] [address] [place] [address] Jaylene Wolf MD PhD Daysi Muñoz MD PhD ALS (amyotrophic lateral sclerosis) (HCC) Discharge Disposition: Discharge to home or self care 10/09/2024 Telephone [facility] Neuro Muscle [address] [place] [address] Yulia Burroughs, ZULEIKA 10/09/2024 Telephone [facility] Neuro Muscle [address] [place] [address] Yulia Burroughs, ZULEIKA 10/09/2024 Orders Only [facility] Neuro Muscle [address] [place] [address] Yulia Burroughs, ZULEIKA ALS (amyotrophic lateral sclerosis) (HCC) (Primary Dx) 10/08/2024 1:00 PM CDT Residential Visit [facility] Palliative Care 1 [facility] [address] [place] [address] Zara Hatch NP Acute post-traumatic headache, not intractable (Primary Dx) 09/28/2024 10:00 AM CDT Therapy [facility] Physical Therapy [address] [place] [phone] Helena Allen, RESEARCH MICROBIOLOGIST ALS (amyotrophic lateral sclerosis) (HCC) (Primary Dx) 09/28/2024 Plan of Care Documentation [facility] Physical Therapy [facility] [address] [address] 09/24/2024 Documentation [facility] Neuro Muscle [address] [place] [address] 09/20/2024 2:00 PM CDT Telemedicine [facility] Neuro [facility]cle [address] [place] [phone] Kiarra [place] NP ALS (amyotrophic lateral sclerosis) (HCC) (Primary Dx); 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) 08/15/2024 Telemedicine [facility] St[facility] [address] [facility] [address] [place] [address] Juvencio Cheney MD 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); ALS (amyotrophic lateral sclerosis) (HCC) 08/10/2024 11:00 AM CDT Residential Visit [facility] Palliative Care [address] [place] [address] Tabitha Mcbride NP Palliative care encounter (Primary Dx); ALS (amyotrophic lateral sclerosis) (HCC); Dysphagia, unspecified type; 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) 07/26/2024 2:00 PM CDT - 07/27/2024 12:24 PM CDT Hospital Encounter [facility] 1 [place] [address] Elijah Hernandez MD Liu, MD Naga Reynolds, Angie Salgado MD Abdominal pain (Primary Dx); Gastrostomy tube dysfunction (HCC); Cellulitis of abdominal wall; ALS (amyotrophic lateral sclerosis) (HCC) Discharge Disposition: Discharge to home or self care 07/26/2024 Telephone [facility] Scheduling [address] [place] [address] Kiarra [place] NP Scheduling Appointments 07/26/2024 Documentation [facility] [place] [address] [facility] [address] [place] [address] Alma Britton, ZULEIKA 07/19/2024 Telephone [facility] Neuro Muscle [address] [facility] 6th [place] [address] [place] [phone] Khris Lucio, ZULEIKA 07/11/2024 Orders Only [facility] Palliative Care [address] [place] [address] Reed, Tabitha A., MATERIAL MOVERS Right wrist pain (Primary Dx) from Last 3 Months Immunizations Immunization Administration Dates Next Due Influenza, Trivalent, High D ose, Split, Preservative Free, Intramuscular 01/31/2018 Influenza, Trivalent, Preser vative Free, Intramuscular 02/12/2016,01/12/2015,01/12/2014,01/12,01/12/2011 Tdap 06/22/2011 Surgical History Surgery Date Site/Laterality Comments SECTION Section - (Added by TW Conv) SD LAPAROSCOPY SURG CHOLECYSTECTOMY Cholecystectomy Laparoscopic - (Added by TW Conv) AORTIC VALVE REPLACEMENT Aortic Valve Replacement - (Added by TW Conv) LOOP ELECTROSURGICAL EXCISIO N PROCEDURE Cervical Loop Electrosurgical Excision (LEEP) - (Added by TW Conv) IR G TUBE PLACEMENT PERCUTANEOUS 09/28/2023 N/A ENTERIC TUBE INJECTION 10/28/2023 N/A CHANGE G TUBE 07/27/2024 N/A CHANGE G TUBE 10/10/2024 N/A Medical History Medical History Date Comments [...] Brother 1 Duglas Leg weakness Brother 1 Duglsa No Known Problems Brother 2 Duran Heart [...] on file 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 [...] was obtained. Prior to beginning the procedure, [place] Protocol was performed to confirm the patient's identity and the planned procedure. The fluoroscopy time has been recorded in the electronic medical record. The existing 18-Martiniquais G-tube was removed from the tract after the balloon was deflated. Through the tract, a new 18-Martiniquais 4 cm gastrostomy button was advanced in [...] was obtained. Prior to beginning the procedure, [place] Protocol was performed to confirm the patient's identity and the planned procedure. The fluoroscopy time has been recorded in the electronic medical record. The existing 18-Martiniquais G-tube was removed from the tract after the balloon was deflated. Through the tract, a new 18-Martiniquais 4 cm gastrostomy button was advanced in the balloon inflated under fluoroscopy. Contrast injection confirmed appropriate positioning of the catheter within the stomach. A sterile dressing was applied. ESTIMATED BLOOD LOSS: Minimal. CONDITION: Stable DISCHARGED TO: home. FINDINGS: Fluoroscopic spot image demonstrates the gastrostomy catheter with its tip in the body of the stomach. No complications are seen. IMPRESSION: Successful percutaneous 18-Martiniquais 4 cm CLINTON huerta G button exchange. Dictated by: Logan Pineda MD The radiology attending physician has personally reviewed this study, and had reviewed and/or edited this written report and agrees with it. Electronically signed by: Daysi Muñoz MD, PhD [facility] Valery Wolf MD PhD IMG IR PRO CEDURES Final Result * IR Change G Tube (07/27/2024 8:28 AM CDT) Anatomical Region Laterality Modality Body N/A X-Ray Angiograph y 07/27/2024 8:33 AM CDT Impressions 07/27/2024 3:48 PM CDT Successful percutaneous gastrostomy catheter exchange for 18 Martiniquais 4 cm gastrostomy button. Dictated by: Satya [...] procedure. TECHNIQUE: Prior to beginning the procedure, [place] Protocol was performed to confirm the patient's [...] was measured to select a button. A 18-Martiniquais by 4 cm gastrostomy button was placed [...] procedure. TECHNIQUE: Prior to beginning the procedure, [place] Protocol was performed to confirm the patient's [...] was measured to select a button. A 18-Martiniquais by 4 cm gastrostomy button was placed [...] Successful percutaneous gastrostomy catheter exchange for 18 Martiniquais 4 cm gastrostomy button. Dictated by: Satya [...] ORDERABLES Final R esult Performing Organization Address [facility] Co de Phone Number [facility] Department [place] [address] * (ABNORMAL) CBC without differential (07/27/2024 6:49 AM CDT) [facility] WBC 4.92 3.80 - 9.90 K/cumm Hgb 11.3(L) 11.9 - 15.5 g/dL [facility] Hct 34.0(L) 35.6 - 45.5 % [facility] Plt 225 150 - 400 K/cumm [facility] MPV 9.2 9.1 - 12.3 fL [facility] RBC 3.82(L) 3.90 - 5.20 M/cumm [facility] MCV 89.0 81.3 - 96.4 fL [facility] MCH 29.6 27.1 - 33.3 pg [facility] MCHC 33.2 32.3 - 35.7 g/dL [facility] RDW CV 12.9 11.1 - 14.9 % [facility] RDW SD 42.0 35.7 - 48.1 fL [facility] NRBC abs 0.00 0.00 - 0.01 K/cumm [facility] Blood 07/27/2024 6:49 AM CDT 07/27/2024 6:53 AM CDT Gregor MIRANDA LAB BLOOD ORDERABLES Final R esult Performing Organization Address [facility] Co de Phone Number [facility] Department [place] [address] * (ABNORMAL) Comprehensive metabolic panel (07/27/2024 6:49 AM CDT) [facility] Sodium 142 135 - 145 mmol/L Potassium, pl 3.8 3.3 - 4.9 mmol/L [facility] Chloride 106 97 - 110 mmol/L [facility] CO2 27 22 - 32 mmol/L [facility] Anion gap 9 2 - 15 mmol/L [facility] BUN 11 6 - 25 mg/dL [facility] Creatinine 0.69 0.60 - 1.10 mg/dL [facility] Glucose 93 70 - 199 mg/dL [facility] Comment: Interpretive Data Fasting glucose >/= [...] 2022. Calcium 9.5 8.5 - 10.3 mg/dL [facility] Bilirubin, total 2.9(H) 0.1 - 1.2 mg/dL [facility] Protein, pl 6.4(L) 6.5 - 8.5 g/dL [facility] Albumin 4.1 3.5 - 5.0 g/dL [facility] Alk phos 83 40 - 130 Units/L [facility] ALT 16 7 - 45 Units/L [facility] AST 29 10 - 45 Units/L [facility] Blood 07/27/2024 6:49 AM CDT 07/27/2024 6:53 AM CDT Gregor MIRANDA LAB BLOOD ORDERABLES Final R esult [facility] Department [place] [address] * (ABNORMAL) aPTT (07/26/2024 9:13 PM CDT) Pathologist [facility] aPTT 48(H) 28 - 38 sec Comment: Interpretive Data Heparin therapeutic range: 66.0 - 100.0 seconds. Range based on correlation with therapeutic heparin activity range of 0.3 - 0.7 Units/mL. Current interpretive data was last revised on 2022. Blood 07/26/2024 9:13 PM CDT 07/26/2024 9:24 PM CDT Deshawn Hammonds MD LAB BLOOD ORDERAB LES Final Result Performing Organization Address [facility] [place] [address] * (ABNORMAL) Protime-INR (07/26/2024 9:13 PM CDT) PT 37.6(H) 9.7 - 13.0 sec INR 3.40(H) 0.90 - 1.20 [facility] Comment: Interpretive data Oral anticoagulant therapeutic ranges: Venous thromboembolism prophylaxis or treatment: 2.0-3.0 CARDIOLOGY Standard range: 2.0-3.0 High-intensity range: 2.5-3.5 Refer to indication-specific guidelines for appropriate target ranges for prosthetic heart valve replacement. Current interpretive data was last revised on 2019. Blood 07/26/2024 9:13 PM CDT 07/26/2024 9:24 PM CDT Deshawn Hammonds MD LAB BLOOD ORDERAB LES Final Result Performing Organization Address [facility] [place] [address] * Type and screen (07/26/2024 9:13 PM CDT) ABO Rh A Positive Christiana, indirect Negative [facility] Blood 07/26/2024 9:13 PM CDT 07/26/2024 9:33 PM CDT Narrative [facility] - 07/26/2024 10:37 PM CDT Has the patient had Daratumumab or Isatuximab in the past 6 months?->Unknown Deshawn Hammonds MD LAB BLOOD BANK TE ST ORDERABLES Final Result Performing Organization Address [facility] Co de Phone Number [facility] Department [place] [address] * ECG 12-LEAD (07/26/2024 4:49 PM CDT) Narrative [facility] - 07/26/2024 4:49 PM CDT Elijah Hernandez [...] follow up: further workup in the ED us Kimmy Lara MD ECG ORDERABLES Domonique l Result Performing Organization Address [facility] Co de Phone Number [facility] * Troponin I high-sensitivity 2-hour (07/26/2024 4:33 PM CDT) Trop I hs 8 <=17 ng/L Comment: Interpretive Data For further hscTnI resources including the diagnostic algorithm and an aid in interpretation, copy and paste this link: https://bjhlab.testcatalog.org/show/hsTrop-[email or web address] Current Interpretive Data last revised 2019. Trop I hs delta 3 ng/L STORM RODRIGUEZ Trop I hs interp Insignificant STORM Moise Blood 07/26/2024 4:33 PM CDT 07/26/2024 4:46 PM CDT us Kimmy Lraa MD LAB BLOOD ORDERABLES Final Result Performing Organization Address [facility]/State/ZIP Co de Phone Number ST[facility] RODRIGUE[facility] Department [place] [address] * CT Abdomen Pelvis W Contrast (07/26/2024 [...] it. Electronically signed by: John Oneil M.D. Kimmy Lara MD IMG CT PROCEDURES Fi nal Result * Urinalysis reflex to microscopic (07/26/2024 3:42 PM CDT) Color, ur Straw Yellow Clarity, ur Clear Clear [facility] Specific gravity, ur 1.005 1.003 - 1.030 [facility] pH, urine 7.0 [facility] Comment: Interpretive Data U rine pH is affected by diet, medications, systemic acid-base disturbances, and renal tubular function. pH may affect urinary stone formation. For example, urine pH below 6.0 may help reduce the tendency for calcium phosphate stones and pH greater than 6.0 may reduce the tendency for uric acid stone formation. Source: [facility] Current Interpretive Data was last revised on 2017 Protein, ur ql Negative Negative [facility] Glucose, ur ql Negative Negative [facility] Ketones, ur Negative Negative [facility] Bilirubin, ur Negative Negative [facility] Blood, ur Negative Negative [facility] Urobilinogen, ur <2.0 <2.0 mg/dL [facility] Nitrite, ur Negative Negative [facility] Leukocyte esterase, ur Negative Negative [facility] UA reflex comment Reflex conditions for microscopic UA not met. [facility] Urine 07/26/2024 3:42 PM CDT 07/26/2024 3:49 PM CDT Elijah Hernandez MD LAB URINE ORDERABLES Domonique l Result Performing Organization Address City/[facility]/ZIP Co de Phone Number [facility] Department [place] [address] * POCT creatinine (07/26/2024 3:29 PM CDT) [facility] Creatinine POC 0.6 0.6 - 1.1 mg/dL Blood 07/26/2024 3:29 PM CDT 07/26/2024 3:29 PM CDT Elijah Hernandez MD LAB POCT ORDERABLES - DEV ICE Final Result [facility] [place] [address] * Troponin I high-sensitivity series (baseline, 2hr, 4hr, 6hr) (07/26/2024 2:11 PM CDT) Trop I hs 5 <=17 ng/L Comment: Interpretive Data For further hscTnI resources including the diagnostic algorithm and an aid in interpretation, copy and paste this link: https://bjhlab.testcatalog.org/show/hsTrop-[email or web address] Current Interpretive Data last revised 2019. Blood 07/26/2024 2:11 PM CDT 07/26/2024 3:28 PM CDT us Kimmy Lara MD LAB BLOOD ORDERABLES Final Result Performing Organization Address [facility] Co de Phone Number [facility] Department [place] [address] * eGFR (07/26/2024 1:40 PM CDT) Pathologist [facility] eGFR >90 >=60 mL/min/1. 73 m2 Comment: [...] MD LAB BLOOD ORDERABLES Final Res ult Performing Organization Address City/[facility]/ZIP Co de Phone Number [facility] Department [place] [address] * Differential, auto (07/26/2024 1:40 PM CDT) Neutrophil abs 3.75 1.50 - 6.50 K/cumm Imm gran abs 0.02 0.00 - 0.10 K/cumm [facility] Lymphocyte abs 1.18 0.80 - 3.30 K/cumm [facility] Monocyte abs 0.40 0.20 - 0.80 K/cumm [facility] Eosinophil abs 0.03 0.00 - 0.50 K/cumm [facility] Basophil abs 0.02 0.00 - 0.10 K[facility]cumm [facility] Neutrophil pct 69.3 % [facility] Comment: Interpretive Data Percent cell count reference ranges are not reported, since discordance with absolute values may lead to misinterpretation of CBC data. Current Interpretive Data was last revised on 2017. Imm gran pct 0.4 % [facility] Comment: Interpretive Data Percent cell count reference ranges are not reported, since discordance with absolute values may lead to misinterpretation of CBC data. Current Interpretive Data was last revised on 2017. Lymphocyte pct 21.9 % [facility] Comment: Interpretive Data Percent cell count reference ranges are not reported, since discordance with absolute values may lead to misinterpretation of CBC data. Current Interpretive Data was last revised on 2017. Monocyte pct 7.4 % [facility] Comment: Interpretive Data Percent cell count reference ranges are not reported, since discordance with absolute values may lead to misinterpretation of CBC data. Current Interpretive Data was last revised on 2017. Eosinophil pct 0.6 % [facility] Comment: Interpretive Data Percent cell count reference ranges are not reported, since discordance with absolute values may lead to misinterpretation of CBC data. Current Interpretive Data was last revised on 2017. Basophil pct 0.4 % [facility] Comment: Interpretive Data Percent cell count reference ranges are not reported, since discordance with absolute values may lead to misinterpretation of CBC data. Current Interpretive Data was last revised on 2017. Blood 07/26/2024 1:40 PM CDT 07/26/2024 3:28 PM CDT us Hugh Davenport MD LAB BLOOD ORDERABLES Final Res ult [facility] Department [place] [address] * CBC with auto differential (07/26/2024 1:40 PM CDT) WBC 5.40 3.80 - 9.90 K/cumm Hgb 12.4 11.9 - 15.5 g/dL [facility] Hct 37.4 35.6 - 45.5 % [facility] Plt 232 150 - 400 K/cumm [facility] MPV 9.5 9.1 - 12.3 fL [facility] RBC 4.15 3.90 - 5.20 M/cumm [facility] MCV 90.1 81.3 - 96.4 fL [facility] MCH 29.9 27.1 - 33.3 pg [facility] MCHC 33.2 32.3 - 35.7 g/dL [facility] RDW CV 13.0 11.1 - 14.9 % [facility] RDW SD 42.5 35.7 - 48.1 fL [facility] NRBC abs 0.00 0.00 - 0.01 K/cumm [facility] Blood Venous blood specimen / Unknown 07/26/2024 1:40 PM CDT 07/26/2024 3:28 PM CDT us Elijah Hernandez MD LAB BLOOD ORDERABLES Domonique l Result [facility] Department [place] [address] * Lipase (07/26/2024 1:40 PM CDT) Lipase 14 10 - 99 Units/L Blood Venous blood specimen / Unknown 07/26/2024 1:40 PM CDT 07/26/2024 3:28 PM CDT us Elijah Hernandez MD LAB BLOOD ORDERABLES Domonique reynolds Result [facility] Department [place] [address] * (ABNORMAL) Comprehensive metabolic panel (07/26/2024 1:40 PM CDT) Sodium 142 135 - 145 mmol/L Potassium, pl 4.0 3.3 - 4.9 mmol/L [facility] Chloride 104 97 - 110 mmol/L [facility] CO2 26 22 - 32 mmol/L [facility] Anion gap 12 2 - 15 mmol/L [facility] BUN 9 6 - 25 mg/dL [facility] Creatinine 0.64 0.60 - 1.10 mg/dL [facility] Glucose 96 70 - 199 mg/dL [facility] Comment: Interpretive Data Fasting glucose >/= [...] 2022. Calcium 9.8 8.5 - 10.3 mg/dL [facility] Bilirubin, total 2.9(H) 0.1 - 1.2 mg/dL [facility] Protein, pl 7.5 6.5 - 8.5 g/dL [facility] Albumin 4.7 3.5 - 5.0 g/dL [facility] Alk phos 96 40 - 130 Units/L [facility] ALT 18 7 - 45 Units/L [facility] AST 32 10 - 45 Units/L [facility] Blood 07/26/2024 1:40 PM CDT 07/26/2024 3:28 PM CDT Elijah Hernandez MD LAB BLOOD ORDERABLES Domonique reynolds Result [facility] Department [place] [address] * Screening Mammogram 2D Bilateral (10/05/2017 4:23 PM CDT) Anatomical Region Laterality Modality Breast Bilateral Mammography Narrative 10/06/2017 2:06 PM CDT Mammogram Technique: Bilateral Full-Field Digital Screening Mammogram was performed. Views obtained: bilateral craniocaudal and bilateral mediolateral oblique. Computer Aided Detection was performed. Mammogram Findings: The present examination has been compared to prior imaging studies performed at [facility] on 06/04/2014, 05/27/2015 and 08/11/2016. [...] compared to prior imaging studies performed at [facility] on 06/04/2014, 05/27/2015 and 08/11/2016. [...] Relevant to Health Maintenance Insurance MEDICARE [facility] MEDIC[facility] Address: [address] [address] [place] [address] MEDICARE MEDICARE [facility] MEDICARE Address: [address] [address] [place] [address] Advance Directives For more information, please contact: [phone] * Full Code (Latest Code Status on [...] 2:18 PM 10/01/2023 9:29 PM Care Teams Permit Coordinator Relationship Specialty Start Date End Date Sylvia Layton NP [address] [place] [address] PCP - General Family Medicine 10/03/23 [place] PhD [address] [place] [address] [phone] Consulting Physician Neurology 07/11/23 Alannah Gentile PA 1 [facility] [address] [place] [address] Physician Barber Instructor Physician Barber Instructor 07/11/23 Juvencio Cheney MD [facility] NEUROLOGY SLEEP 86 [address] [address] Consulting Physician Sleep Medicine 08/19/23 Sneha Nayak, OT Occupational Therapist Occupational Therapy 11/18/23 Zara Hatch NP [address] [place] [address] Nurse Practitioner Hospice and Palliative Medicine 02/01/24 Tabitha Mcbride NP [address] [place] [address] Nurse Practitioner Hospice and Palliative Medicine 05/04/24
--- OUTSIDE RECORDS SUMMARY | 2024-10-11 15:51 | XMS_ITS | Clinical Summary ---
Author Organization [facility] Address [address] [place] [address] Care Team Providers Care Orthotic/Prosthetic Clinician Name Role Phone Sheldon Newby Primary Care Provider [phone] Source Comments [facility],non-owned Affiliates and Associated Physician Practices is amultiple site organization consisting of ambulatory clinics and hospital sitesin [place], [place]. This disclosure is being madepursuant to the Care Everywhere program and may not contain all information available regarding this patient. Last updated 17.[facility] [place] Allergies No known active allergies Medications * Be aware that medications may not be up to date on this document. Alwaysverify current medications with the patient. losartan (COZAAR) 25 MG tablet Take 25 [...] remain upright for 30 min Active Calcium Carb-Cholecalci ferol (CALCIUM 500+D PO) Take by mouth once daily Active atorvastatin (Lipitor) 20 MG tablet Take 20 mg by mouth at bedtime Active busPIRone (Buspar) 7.5 MG tablet Take 7.5 mg by mouth once daily Active escitalopram (Lexapro) 10 MG tablet Take 10 mg by mouth once daily Active oxybutynin CR 24hr (Ditropan-XL) 10 MG tablet Take 20 mg by mouth once daily Active oxyCODONE-aceta minophen (Percocet) 5-325 MG tablet Take 1 tablet by mouth every 4 hours as needed for Pain Active Active Problems Problem Noted Date Diagnosed Date History of cerebellar stroke 03/20/2021 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 Subtherapeutic international normalized ratio (I NR) 03/20/2021 Cerebellar stroke 12/19/2020 Social History Tobacco Use Types Packs/Day Years Used Date Smoking Tobacco: Former Cigarettes Q uit: 03/14/2009 Smokeless Tobacco: Never Comments Unknown Sex and Gender Information Value Date Recorded Sex Assigned at Not on file Legal Sex Female 3:35 PM CDT Gender Identity Not on file Sexual Orientation [...] 12:33 PM CDT Height 167.6 cm (5' 6) 12/19/2020 12:33 PM CDT Body Mass Index [...] 12/30/2001 ZOSTER VACCINE (1 of 2) 12/30/2001 COLOGUARD (AGES 45-75) - COL ON CA SCREENING 10/22/2023 10/21/2020 Colorectal Cancer Screening 10/22/2023 COVID-19 VACCINE (1 - 2023-2 5 season) 2023 DEPRESSION SCREENING 03/14/2024 MEDICARE AWV CALENDAR YEAR 2024 SCREENING FOR DIABETES 10/23/2024 10/23/2021 INFLUENZA VACCINE (#1) 2024 Respiratory Syncytial Virus (RSV) Vaccine Pt: or over 60 yrs (1 - 1-dose 75+ series) 12/30/2026 HEPATITIS B VACCINE Aged Out No longe [...] A1c 4.7 <5.7 % of total Hgb [facility] Comment: For the purpose of screening for the presence of diabetes: <5.7% Consistent with the absence of diabetes 5.7-6.4% Consistent with increased risk for diabetes (prediabetes) > or =6.5% Consistent with diabetes This assay result is consistent with a decreased risk of diabetes. Currently, no consensus exists regarding use of hemoglobin A1c for diagnosis of diabetes in children. According to [place] Diabetes Association (ADA) guidelines, hemoglobin A1c <7.0% represents optimal control in non- diabetic patients. Different metrics may apply to specific patient populations. Standards of Medical Care in Diabetes(ADA). Test Performed at: [facility] [address] PATTI PIMENTEL MD Blood BLOOD SPECIMEN / Unknown 10/23/2021 11:54 AM CDT 10/23/2021 11:58 AM CDT us Chaparro Zheng MD LAB - CHEMISTRY ORDERABLES Fi nal Result [facility] [id number] [place] [address] from Last 3 Months or Most Recently Relevant to Health Maintenance Insurance [place] [address] Care Teams Orthotic/Prosthetic Clinician Relationship Specialty Start Date End Date Sheldon Newby DO [address] [place] [address] PCP - General 09/13/21
== END 2024-10-11 15:48 | disposition home or self-care (01) ==
PROVIDERS: PCP Nurse Practitioner Family; Visit Provider Nurse Practitioner Family
DX: M25.551 Pain in right hip (principal); M54.50 Low back pain, unspecified; M47.892 Other spondylosis, cervical region
CPT/HCPCS: 72040; 72100; 73502

== ENCOUNTER 2024-10-28 15:14 | Emergency (ER) | payer MEDICARE, SELFPAY ==
--- NOTE | ~2024-10-28 | CT_ITS ---
History: Fall PROCEDURE: CT head without contrast. COMPARISON: None. Reference is made to a MRI examination of the brain dated 11/14/2022 TECHNIQUE: Axial imaging of the head performed from the skull base to the vertex without IV contrast. Sagittal a nd coronal reformations obtained. DLP: 681 mGy-cm FINDINGS: The ventricles are enlarged. The dilatation of the ventricles is proportional to the degree of sulcal prominence, not uncommon in the senescent brain. Decreased attenuation is identified within the periventricular white matter, likely secondary to micr ovascular ischemic disease, in a patient of this age. There is no mass, mass effect or midline shift. There is no abnormal extra-axial fluid collection or intracranial hemorrhage. Large right frontoparietal scalp hematoma with active hemorrhage. Opacification of the right maxillary sinus, with surrounding bony thickening consistent with chronici ty. Remaining paranasal sinuses are clear. The mastoid air cells are well aerated. No acute displaced fractures within the overlying cranium. Impression: No acute intracranial hemorrhage or suspicious mass effect. Large right frontoparietal scalp hematoma with active hemorrhage. Reviewed, dictated and finalized at location A. Impression: No acute intracranial hemorrhage or suspicious mass effect. Large right frontoparietal scalp hematoma with active hemorrhage.
--- OUTSIDE RECORDS SUMMARY | 2024-10-28 15:17 | XMS_ITS | Encounter Summary ---
Author Organization [facility] Address [address] [place] [address] Phone Care Team Providers Care Pole Shaver Helper Name Role Phone Benton Gonzales MD Primary Care Provider [phone] Glenn Thomas MD Primary Care Provider [phone] Cody Lara NP Primary Care Provider [phone] Jaylene Wolf MD PhD Unavailab le Alannah Gentile Unavailable [phone] Juvencio Cheney MD Unavailable Sylvia Layton NP Primary Care Provider [phone] Sneha Nayak OT Unavailable Unavailab le Zara Hatch NP Unavailable [phone] Tabitha Mcbride NP Unavailable [phone] Encounter Details Date Type Department Care Team (Latest Contact Info) Description 05/25/2017 Orders Only [facility] CONVERSION Scanning, Provider Social History Tobacco Use Types Packs/Day Years Used Date Smoking Tobacco: Former Comments Unknown Sex and Gender Information Value Date Recorded Sex Assigned at Not on file Legal Sex Female 7:37 PM 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 difficile Comment:09/27/2023 per Imra Richardson, patient dose not have active infection Kelsey Segura RN generated from [facility] 08/30/1986 08/30/1986 09/27/2023 7:00 PM C DT documented as of this encounter Care Teams Pole Shaver Helper Relationship Specialty Start Date End Date Benton Gonzales MD [address] [place], [place] [address]KATHY Johnson [address] [address] PCP - General 05/07/16 05/01/19 Glenn Thomas MD [address] [place], [place] [address]KATHY Johnson [address] [address] PCP - General Family Medicine 05/02/19 01/23/23 Cody Lara NP [address] [facility] [address] [facility] 1 [place] [address] PCP - General Nurse Practitioner 01/24/23 10/02/23 Sylvia Layton NP [address] [place] [address] PCP - General Family Medicine 10/03/23 Jaylene Wolf MD PhD [address] [place] [address] Consulting Physician Neurology 07/11/23 Alannah Gentile PA [address] [place] [address] Physician Product Operations Associate Physician Product Operations Associate 07/11/23 Juvencio Che[place] MD [address] [place] [address] NEUROLOGY SLEEP MED, [facility] [address] [place] [address] Consulting Physician Sleep Medicine 08/19/23 Sneha Nayak, OT Occupational Therapist Occupational Therapy 11/18/23 Zara Hatch NP [address] [facility] [place] [address] Nurse Practitioner Hospice and Palliative Medicine 02/01/24 Tabitha Mcbride NP [address] [facility] [facility] [address] [place] [address] Nurse Practitioner Hospice and Palliative Medicine 05/04/24 documented as of this encounter
--- OUTSIDE RECORDS SUMMARY | 2024-10-28 15:17 | XMS_ITS | Clinical Summary ---
Author Organization [facility] Address [address] [place] [address] Care Team Providers Care Massage Therapy Instructor Name Role Phone Jaylene Wolf MD PhD Unavailab le Alannah Gentile Unavailable [phone] Juvencio Cheney MD Unavailable Sylvia Layton NP Primary Care Provider [phone] Sneha Nayak OT Unavailable Unavailab le Zara Hatch NP Unavailable [phone] Tabitha Mcbride NP Unavailable [phone] Allergies No known active allergies Medications escitalopram [...] HOURS 200 tablet 2 10/09/19 25 Active riluzole (RILUTEK) 50 mg tablet TAKE [...] 42 tablet 10/09/19 25 025 Discontinued(Re order) oxyCODONE-acetam inophen (PERCOCET) 5-325 mg per tabletIndication s:Pain,Head trauma Take 1 tablet by mouth every 8 (eight) hours as needed for pain for up to 14 days 42 tablet 10/09/19 25 025 Active Problems Problem Noted Date Diagnosed Date [...] ratio (I NR) 03/20/2021 Cerebellar stroke 12/19/2020 penitentiary (current) use of anticoagulants [Z79.0 1] 08/09/2017 [...] - 10/10/2024 11:59 PM CDT Hospital Encounter [facility] Radiology [facility] [place] [address] [place] [address] Jaylene Wolf MD PhD Wanda, Daysi Mascorro MD PhD ALS (amyotrophic lateral sclerosis) (HCC) Discharge Disposition: Discharge to home or self care 10/09/2024 Telephone [facility] Neuro Muscle [address] [place] [address] [place] [address] Yuila Burroughs, ZULEIKA 10/09/2024 Telephone [facility]cle [address] [place] [address] Yulia Burroughs, ZULEIKA 10/09/2024 Orders Only [facility] Neuro [facility]cle [address] [place] [id number] Yulia Burroughs, ZULEIKA ALS (amyotrophic lateral sclerosis) (HCC) (Primary Dx) 10/08/2024 1:00 PM CDT Residential Visit [facility] Palliative Care [address] [address] Zara Hatch NP Acute post-traumatic headache, not intractable (Primary Dx); ALS (amyotrophic lateral sclerosis) (HCC); Fall, initial encounter 09/28/2024 10:00 AM CDT Therapy [facility] Physical Therapy [address] [place] [phone] Helena Allen, TELECASTING TECHNICIAN ALS (amyotrophic lateral sclerosis) (HCC) (Primary Dx) 09/28/2024 Plan of Care Documentation [facility] Physical Therapy [address] [place] [phone] 09/24/2024 Documentation [facility] Neuro [facility]cle [address] [place] [address] [place] [address] 09/20/2024 2:00 PM CDT Telemedicine [facility] Neuro Muscle [address] [facility] 6th [place] [address] [place] [address] Kiarra Atkinson NP ALS (amyotrophic lateral sclerosis) (HCC) (Primary Dx); 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) 08/15/2024 Telemedicine [facility] Stroke [address] [facility] 6th [address] [place] [address] Juvencio [place] MD 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); ALS (amyotrophic lateral sclerosis) (HCC) 08/10/2024 11:00 AM CDT Residential Visit [facility] Palliative Care [address] [place] [address] Tabitha Mcbride NP Palliative care encounter (Primary Dx); ALS (amyotrophic lateral sclerosis) (HCC); Dysphagia, unspecified type; 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) from Last 3 Months Immunizations Immunization Administration Dates Next Due Influenza, Trivalent, High D ose, Split, Preservative Free, Intramuscular 01/31/2018 Influenza, Trivalent, Preser vative Free, Intramuscular 02/12/2016,01/12/2015,01/12/2014,01/12,01/12/2011 Tdap 06/22/2011 Surgical History Surgery Date Site/Laterality Comments SECTION Section - (Added by TW Conv) WI LAPAROSCOPY SURG CHOLECYSTECTOMY Cholecystectomy Laparoscopic - (Added [...] on file Legal Sex Female 7:37 PM PATCH FINISHER Gender Identity Not on file Sexual Orientation [...] AM CDT ALS (amyotrophic lateral sclerosis) (HCC) SCREENING MAMMOGRAM 2D BILATERAL Schedule Routine, Read [...] Impressions 10/10/2024 4:40 PM CDT Successful percutaneous 18-Jordanian 4 cm CLINTON huerta G button exchange. [...] was obtained. Prior to beginning the procedure, Sandwich Protocol was performed to confirm the patient's identity and the planned procedure. The fluoroscopy time has been recorded in the electronic medical record. The existing 18-Jordanian G-tube was removed from the tract after the balloon was deflated. Through the tract, a new 18-Jordanian 4 cm gastrostomy button was advanced in [...] was obtained. Prior to beginning the procedure, Sandwich Protocol was performed to confirm the patient's identity and the planned procedure. The fluoroscopy time has been recorded in the electronic medical record. The existing 18-Jordanian G-tube was removed from the tract after the balloon was deflated. Through the tract, a new 18-Jordanian 4 cm gastrostomy button was advanced in the balloon inflated under fluoroscopy. Contrast injection confirmed appropriate positioning of the catheter within the stomach. A sterile dressing was applied. ESTIMATED BLOOD LOSS: Minimal. CONDITION: Stable DISCHARGED TO: home. FINDINGS: Fluoroscopic spot image demonstrates the gastrostomy catheter with its tip in the body of the stomach. No complications are seen. IMPRESSION: Successful percutaneous 18-Jordanian 4 cm CLINTON huerta G button exchange. Dictated by: Logan Pineda MD The radiology attending physician has personally reviewed this study, and had reviewed and/or edited this written report and agrees with it. Electronically signed by: Daysi Muñoz MD, PhD Jaylene Wolf MD PhD IMG IR PRO CEDURES Final Result * Screening Mammogram 2D Bilateral (10/05/2017 4:23 PM CDT) Anatomical Region Laterality Modality Breast Bilateral Mammography Narrative 10/06/2017 2:06 PM CDT Mammogram Technique: Bilateral Full-Field Digital Screening Mammogram was performed. Views obtained: bilateral craniocaudal and bilateral mediolateral oblique. Computer Aided Detection was performed. Mammogram Findings: The present examination has been compared to prior imaging studies performed at [facility] on 06/04/2014, 05/27/2015 and 08/11/2016. There are scattered areas of fibroglandular density. There is no suspicious abnormality in either breast. Impression: Annual screening mammography is recommended. OVERALL FINAL ASSESSMENT: BI-RADS CATEGORY 1: Negative. Procedure Note Jan Joradn MD - 10/06/2017 Mammogram Technique: Bilateral Full-Field Digital Screening Mammogram was performed. Views obtained: bilateral craniocaudal and bilateral mediolateral oblique. Computer Aided Detection was performed. Mammogram Findings: The present examination has been compared to prior imaging studies performed at [facility] on 06/04/2014, 05/27/2015 and [...] Most Recently Relevant to Health Maintenance Insurance [facility] MEDICARE ADVANTAGE MEDICARE MEDICARE ADVANTAGE Advance Directives For more information, please contact: [phone] * Full Code (Latest Code Status on [...] 2:18 PM 10/01/2023 9:29 PM Care Teams Massage Therapy Instructor Relationship Specialty Start Date End Date Sylvia Layton NP [address] [facility] [place] [address] PCP - General Family Medicine 10/03/23 Jaylene Wolf MD PhD Consulting Physician Neurology 07/11/23 Alannah Gentile PA [address] [facility] [address] [place] [address] Physician Truck Driving Instructor Physician Truck Driving Instructor 07/11/23 Juvencio Che[place] MD [address] [place] [address] NEUROLOGY SLEEP [facility] [address] [place] [address] Consulting Physician Sleep Medicine 08/19/23 Sneha Nayak OT Occupational Therapist Occupational Therapy 11/18/23 Zara Hatch NP [address] [place] [address] [address] [place], [place] [address] [address] Nurse Practitioner Hospice and Palliative Medicine 02/01/24 Tabitha Mcbride NP [address] [facility] [address] [place] [address] Nurse Practitioner Hospice and Palliative Medicine 05/04/24
--- OUTSIDE RECORDS SUMMARY | 2024-10-28 15:17 | XMS_ITS | Clinical Summary ---
Author Organization [facility] Address [address] [place] [address] Care Team Providers Care Otr Van Cdl Truck Driver Name Role Phone Sheldon Newby Primary Care Provider [phone] Source Comments [facility],non-owned Affiliates and Associated Physician Practices is amultiple site organization consisting of ambulatory clinics and hospital sitesin [place], [place], [place] and [place]. This disclosure is being madepursuant to the Care Everywhere program and may not contain all information available regarding this patient. Last updated 17.[facility] [employer] Allergies No known active allergies Medications * [...] A1c 4.7 <5.7 % of total Hgb [facility] Comment: For the purpose of screening for the presence of diabetes: <5.7% Consistent with the absence of diabetes 5.7-6.4% Consistent with increased risk for diabetes (prediabetes) > or =6.5% Consistent with diabetes This assay result is consistent with a decreased risk of diabetes. Currently, no consensus exists regarding use of hemoglobin A1c for diagnosis of diabetes in children. According to [place] Diabetes Association (ADA) guidelines, hemoglobin A1c <7.0% represents optimal control in non- diabetic patients. Different metrics may apply to specific patient populations. Standards of Medical Care in Diabetes(ADA). Test Performed at: [facility] [address] PATTI PIMENTEL MD Blood BLOOD SPECIMEN / Unknown 10/23/2021 11:54 AM CDT 10/23/2021 11:58 AM CDT us Chaparro Zheng MD LAB - CHEMISTRY ORDERABLES Fi nal Result [facility] [id number] [place] [address] from Last 3 Months or Most Recently Relevant to Health Maintenance Insurance MANAGED MEDICARE ADV Care Teams Otr Van Cdl Truck Driver Relationship Specialty Start Date End Date Sheldon Newby DO [address] [place] [address] PCP - General 09/13/21
[2024-10-28 15:45] VITALS: BP 137/59; PULSE 78; RESP 17; TEMP 36.3; O2SAT 91
--- NOTE | 2024-10-28 16:00 | ED.HEATRA ---
HPI - Head Injury General Chief complaint: Head Injury Stated complaint: head injury Time Seen by Provider: 10/28/24 15:48 Source: patient Mode of arrival: ambulatory Limitations: no limitations History of Present Illness HPI Narrative: 73 YEARS OLD WHITE FEMALE CAME TO THE ED FROM HOME WITH HER FRIEND BY PRIVATE CAR COMPLAINING OF PAINFUL HEMATOMA AT THE RIGHT OCCIPITAL AREA AFTER HAVING A FALL OCTOBER 02, 2024. PATIENT WENT TO [facility], HAD IMAGING OF THE HEAD AND NECK WITHOUT SIGNIFICANT ABNORMALITY. PATIENT WAS DISCHARGED WITH OCCIPITAL HEMATOMA. PATIENT CURRENTLY ON COUMADIN FOR METALLIC HEART VALVE. PATIENT DENIES ANY FEVER, CHILLS, NAUSEA, VOMITING, HEADACHE OR NECK PAIN Related Data Home Medications ?Medication ?Instructions ?Recorded ?Confirmed ?Last Taken ?Type calcium 500 mg (as 1 tablet PO DAILY 07/28/22 10/11/24 Unknown History carbonate)-vitamin D3 10 mcg (400 unit) tablet riluzole 50 mg tablet mg feeding tube 11/09/23 10/11/24 Unknown History oxycodone-acetaminophen 5 mg-325 tablet PO 10/11/24 10/11/24 Unknown History mg tablet Allergies Allergy/AdvReac Type Severity Reaction Status Date / Time No Known Allergies Allergy Verified 10/11/24 14:02 Review of Systems Review of Systems: All systems reviewed & are unremarkable except as noted in HPI and below PMFSH Past Medical History Medical History Establishing care with new doctor, encounter for Dizziness Balance problem Weakness Closed head injury Vaccine counseling UTI symptoms Screening for colon cancer Dysphagia Arthritis Wears glasses Claustrophobia Overactive bladder Blood clot in vein Osteoporosis Dyslipidemia Stroke Vitamin D deficiency Hypertension Surgical History Surgical History Hx of cholecystectomy History of aortic valve replacement with metallic valve Presence of other heart-valve replacement Family History Family History Mother Cerebrovascular accident Social History Social History Social History: She lives at home alone. She only has 1 son. Her son is the durable power criminal defense attorney for healthcare and she has decided to be a full code. She is and her ex- is . She is retired from [employer]. Smoking packs per day: 0.5 Smoking cigarettes per day: 10.0 Years smoked: 15 Smoking pack-years: 7.50 Smoking status: Former smoker Tobacco type: cigarettes Smoking end date: 03/18/99 Alcohol intake: never Substance use: never Substance use type: does not use Do You Feel Safe in your Home?: Yes Lack of Transportation: No Lack of Food: Never True Current Housing: I Have Housing Concerned About Future Housing: No Difficulty Paying Gas/Electric Bills: No Difficulty Paying for Meds: No Currently Unemployed: No Education: High School Diploma/GED Difficulty w/ Childcare or Family Care: No Living arrangements: alone Occupation/Education: retired Gender identity (if verbalized by the patient): Female Sexual Orientation (if Verbalized by the Patient): Straight or Heterosexual Spiritual care concerns: No Exam Narrative: GENERAL APPEARANCE: WELL-DEVELOPED, WELL-NOURISHED SKIN: NORMAL COLOR HEAD: NORMOCEPHALIC, LARGE HEMATOMA RIGHT OCCIPITAL AREA 6 X 5 CM, OOZING BLOOD FROM 1 MM OPENING, 1 CM DARK SCAB AT THE TOP OF THE HEMATOMA. EYES: CLEAR CONJUNCTIVA ENT: OROPHARYNX NORMAL, EARS NORMAL, NOSE NORMAL NECK: SUPPLE, NONTENDER CHEST AND RESPIRATORY: AIRWAY PATENT, NO RESPIRATORY DISTRESS, NO ACCESSORY MUSCLE USE HEART: REGULAR RATE/RHYTHM ABDOMINAL EXAM SHOWING FEEDING TUBE IN PLACE VASCULAR: NORMAL PERIPHERAL PULSES, NORMAL CAPILLARY REFILL. MUSCULOSKELETAL: NORMAL RANGE OF MOTION, NONTENDER BACK NEUROLOGIC: ALERT AND ORIENTED ?3, HEALTH/SAFETY JOB TITLES IS NORMAL TESTED, NO GROSS MOTOR DEFICIT Course Vital Signs Vital signs: Vital Signs Temperature 36.3 C L 10/28/24 15:45 Pulse Rate 78 10/28/24 15:45 Respiratory Rate 17 10/28/24 15:45 Blood Pressure 137/59 L 10/28/24 15:45 Pulse Oximetry 91 10/28/24 15:45 Temperature 36.3 C L 10/28/24 15:45 Pulse Rate 78 10/28/24 15:45 Respiratory Rate 17 10/28/24 15:45 Blood Pressure 137/59 L 10/28/24 15:45 Pulse Oximetry 91 10/28/24 15:45 Procedures Abscess I/D scalp: Date of Incision: 10/28/24 Time of Incision: 16:52 Side (if applicable): right (RIGHT OCCIPITAL) Sedation/analgesia: none Local Anesthetic: lidocaine 1% and with epi Amount of anesthesia used (mL): 10 Technique: incised with #11 blade Amount of fluid expressed (mL): 35 Packing used?: iodoform I&D Results: Pus and Blood Complications: pain Abcess I&D Additional Comments: HEMATOMA IS 6 X 5 CM, 1 CM DARK SCAB AT THE TOP OF IT, 1 MM OPENING LOSING BLOOD. NEEDLE ASPIRATION SHOWED POSS BLASTS BLOOD 2 CM INCISION RESULTED IN TO 35-40 CC OF BLOOD MIXED WITH PUS AND BLOOD CLOTS. I DEFORMED PACKING BLEEDING STOPPED PATIENT FEELING MUCH BETTER COMPARED TO ON ARRIVAL. THE PROCEDURE TIME ROUGHLY 35 MINUTES MDM - Head Injury MDM Narrative Medical decision making narrative: PATIENT CAME WITH INFECTED HEMATOMA TO RIGHT OCCIPITAL AREA INCISION AND DRAINAGE RESULTED IN TO 35-40 CC OF PURULENT DISCHARGE MIXED WITH BLOOD AND BLOOD CLOTS ABSCESS CULTURE ORDERED PATIENT RECEIVED 1 TABLET OF KEFLEX PRIOR TO DISCHARGE, DISCHARGED ON KEFLEX TO FOLLOW-UP WITH HER FAMILY PHYSICIAN. BLOOD WORKUP TODAY SHOWED NORMAL HEMOGLOBIN, INR 2.6 Differential Diagnosis Differential diagnosis: Likely other ( ABOVE) Medical Records Attestation: I reviewed the patient's medical records. Lab Data 10/28/24 17:18 Labs: Lab Results 10/28/24 Range/Units 17:18 WBC 8.8 (4.5-10.0) K/mm3 RBC 4.21 (4.2-5.4) M/mm3 Hgb 12.4 (12.0-15.0) g/dL Hct 38.3 (37.0-47.0) % MCV 91.0 (80-100) fl MCH 29.5 (26-34) pg MCHC 32.4 (32-36) g/dl RDW 12.8 (11.5-14.5) % Plt Count 254 (150-375) k/mm3 MPV 9.0 (7.4-10.4) fl Immature Gran % (Auto) 0.5 (0-0.5) % Neut % (Auto) 79.8 H (45.5-73.1) % Lymph % (Auto) 11.9 L (18.3-44.2) % [place] % (Auto) 6.8 (2.6-8.5) % Eos % (Auto) 0.5 (0-4.4) % Baso % (Auto) 0.5 (0.2-1.2) % Lymph # (Auto) 1.05 (0.9-3.2) K/mm3 [place] # (Auto) 0.6 (0.1-0.6) K/mm3 Eos # (Auto) 0.0 (0-0.3) K/mm3 Baso # (Auto) 0.0 (0.0-0.1) K/mm3 Abs Immat Gran (auto) 0.04 H (0.00-0.031) K/mm3 Absolute Neuts (auto) 7.1 H (1.3-6.7) K/mm3 Absolute Nucleated RBC 0.000 (0.0-0.012) K/mm3 Nucleated RBC % 0.0 (0.0-0.2) % PT 27.3 H (11.1-14.7) Seconds INR 2.6 Imaging Data Radiologist's impression: CT HEAD WITHOUT CONTRAST SHOWED NO INTRACRANIAL ABNORMALITY, SCALP HEMATOMA, ACTIVE BLEEDING Critical Care Time Critical Care Time Critical Care Time: Yes Total Critical Care Time: 35 Discharge Plan Discharge Clinical Impression: Abscess, occipital Patient Disposition: Home Condition: Improved Instructions: Antibiotic Form, Abscess Incision and Drainage (DC) Additional Instructions: RETURN IF SYMPTOMS ARE WORSENING , CALL YOUR FAMILY PHYSICIAN FOR APPOINTMENT, TAKE TYLENOL NEEDED FOR ACHES AND PAIN, CONTINUE HOME MEDICATIONS., CHANGE PACKING IN 48 HOURS Patient Language: Burundian Prescriptions: New cephalexin 500 mg capsule 500 mg PO Q6H Qty: 28 0RF cephalexin 500 mg capsule 500 mg PO Q6H Qty: 28 0RF No Action calcium carbonate-vitamin D3 500 mg-10 mcg (400 unit) tablet 1 tablet PO DAILY oxycodone-acetaminophen 5-325 mg tablet PO methocarbamol 500 mg tablet 500 mg PO QID PRN (Reason: back pain) Qty: 40 0RF riluzole 50 mg tablet feeding tube alendronate 70 mg tablet 70 mg PO WEEKLY Qty: 12 3RF warfarin 5 mg tablet See Rx Instructions .ROUTE .COMPLEX Qty: 30 2RF Dose Instruction: TAKE ONE-HALF TABLET BY MOUTH WITH 10MG TABLET DAILY TO MAKE 12.5MG ON TUESDAY AND TUESDAY, 10MG ON OTHER DAYS Rx Instructions: TAKE ONE-HALF TABLET BY MOUTH WITH 10MG TABLET DAILY TO MAKE 12.5MG ON TUESDAY AND TUESDAY, 10MG ON OTHER DAYS atorvastatin 20 mg tablet See Rx Instructions .ROUTE .COMPLEX Qty: 100 2RF Dose Instruction: TAKE 1 TABLET BY MOUTH DAILY Rx Instructions: TAKE 1 TABLET BY MOUTH DAILY cholestyramine-aspartame 4 gram powder in packet 4 g PO BID Qty: 60 2RF Rx Instructions: administer w/meal; avoid other meds within 1hr before or 4-6hr after dose oxybutynin chloride 10 mg tablet extended release 24hr See Rx Instructions .ROUTE .COMPLEX Qty: 180 3RF Dose Instruction: TAKE 2 TABLETS BY MOUTH DAILY Rx Instructions: TAKE 2 TABLETS BY MOUTH DAILY warfarin 5 mg tablet 5 mg PO DAILY Qty: 30 5RF warfarin 1 mg tablet See Rx Instructions .ROUTE .COMPLEX Qty: 90 2RF Dose Instruction: TAKE 1 TABLET BY MOUTH DAILY DIRECTED Rx Instructions: TAKE 1 TABLET BY MOUTH DAILY DIRECTED escitalopram oxalate 10 mg tablet See Rx Instructions .ROUTE .COMPLEX Qty: 100 1RF Dose Instruction: TAKE 1 TABLET BY MOUTH DAILY Rx Instructions: TAKE 1 TABLET BY MOUTH DAILY warfarin 10 mg tablet See Rx Instructions .ROUTE .COMPLEX Qty: 90 2RF Dose Instruction: TAKE 1 TABLET BY MOUTH WITH OTHER STRENGTHS TO MAKE 12.5 MG OR 15 MG DOSES DAILY DIRECTED DEPENDING ON INR Rx Instructions: TAKE 1 TABLET BY MOUTH WITH OTHER STRENGTHS TO MAKE 12.5 MG OR 15 MG DOSES DAILY DIRECTED DEPENDING ON INR Follow-up/Referrals: Sylvia Layton APRN [Primary Care Provider] -
--- OUTSIDE RECORDS SUMMARY | 2024-10-28 16:02 | XMS_ITS | Clinical Summary ---
Author Organization [facility] Address [address] [place] [address] Care Team Providers Care Dishwasher Preparer Name Role Phone Jaylene Wolf MD PhD Unavailab le Alannah Gentile Unavailable [phone] Juvencio Cheney MD Unavailable Sylvia Layton NP Primary Care Provider [phone] Sneha Nayak OT Unavailable Unavailab le Zara Hatch NP Unavailable [phone] Tabitha Mcbride NP Unavailable [phone] Allergies No known active allergies Medications escitalopram [...] - 10/10/2024 11:59 PM CDT Hospital Encounter [facility] Radiology [facility] [address] [place] [address] Jaylene Wolf MD PhD Wanda, Daysi Mascorro MD PhD ALS (amyotrophic lateral sclerosis) (HCC) Discharge Disposition: Discharge to home or self care 10/09/2024 Telephone [facility] Neuro Muscle [address] [place] [address] [place] [address] Yulia Burroughs, ZULEIKA 10/09/2024 Telephone [facility] Neuro Muscle [address] [place] [address] Yulia Burroughs, ZULEIKA 10/09/2024 Orders Only [facility] Neuro Muscle [address] [place] [id number] Yulia Burroughs, ZULEIKA ALS (amyotrophic lateral sclerosis) (HCC) (Primary Dx) 10/08/2024 1:00 PM CDT Residential Visit [facility] Palliative Care [address] [address] Zara Hatch NP Acute post-traumatic headache, not intractable (Primary Dx); ALS (amyotrophic lateral sclerosis) (HCC); Fall, initial encounter 09/28/2024 10:00 AM CDT Therapy [facility] Physical Therapy [address] [place] [address] Helena Allen, SPRAY MAKER ALS (amyotrophic lateral sclerosis) (HCC) (Primary Dx) 09/28/2024 Plan of Care Documentation [facility] Physical Therapy [address] [place] [phone] 09/24/2024 Documentation [facility] Neuro Muscle [address] [place] [address] [place] [address] 09/20/2024 2:00 PM CDT Telemedicine [facility] Neuro Muscle [address] [facility] Advanced [facility] 6th [place] [address] [place] [address] Kiarra Atkinson NP ALS (amyotrophic lateral sclerosis) (HCC) (Primary Dx); 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 [...] was obtained. Prior to beginning the procedure, Morning Sun Protocol was performed to confirm the patient's identity and the planned procedure. The fluoroscopy time has been recorded in the electronic medical record. The existing 18-Pakistani G-tube was removed from the tract after the balloon was deflated. Through the tract, a new 18-Pakistani 4 cm gastrostomy button was advanced in [...] was obtained. Prior to beginning the procedure, Morning Sun Protocol was performed to confirm the patient's identity and the planned procedure. The fluoroscopy time has been recorded in the electronic medical record. The existing 18-Pakistani G-tube was removed from the tract after the balloon was deflated. Through the tract, a new 18-Pakistani 4 cm gastrostomy button was advanced in the balloon inflated under fluoroscopy. Contrast injection confirmed appropriate positioning of the catheter within the stomach. A sterile dressing was applied. ESTIMATED BLOOD LOSS: Minimal. CONDITION: Stable DISCHARGED TO: home. FINDINGS: Fluoroscopic spot image demonstrates the gastrostomy catheter with its tip in the body of the stomach. No complications are seen. IMPRESSION: Successful percutaneous 18-Pakistani 4 cm CLINTON huerta G button exchange. [...] compared to prior imaging studies performed at [facility] on 06/04/2014, 05/27/2015 and 08/11/2016. There are [...] compared to prior imaging studies performed at [facility] on 06/04/2014, 05/27/2015 and 08/11/2016. There are [...] Most Recently Relevant to Health Maintenance Insurance [facility] MEDICARE [facility] Address: [address] [address] [place] [address] MEDICARE MEDICARE ADVANTAGE [facility] Address: [address] [address] [place] [address] Advance Directives For more information, please contact: [phone] * Full Code (Latest Code Status on [...] 2:18 PM 10/01/2023 9:29 PM Care Teams Dishwasher Preparer Relationship Specialty Start Date End Date Sylvia Layton NP [address] [facility] [place] [address] PCP - General Family Medicine 10/03/23 Jaylene Wolf MD PhD Consulting Physician Neurology 07/11/23 Alannah Gentile PA [address] [facility] [address] [place] [address] Physician Driver'S License Examiner Physician Driver'S License Examiner 07/11/23 Juvencio Cheney MD [address] [place] [address] NEUROLOGY SLEEP [facility] [address] [place] [address] Consulting Physician Sleep Medicine 08/19/23 Sneha Nayak OT Occupational Therapist Occupational Therapy 11/18/23 Zara Hatch NP [address] [place] [address] [address] MO[address] [place], [place] [address], [place] [address] Nurse Practitioner Hospice and Palliative Medicine 02/01/24 Tabitha Mcbride NP [address] [facility] [address] [place] [address] Nurse Practitioner Hospice and Palliative Medicine 05/04/24
--- OUTSIDE RECORDS SUMMARY | 2024-10-28 16:02 | XMS_ITS | Continuity of Care Document ---
Author Organization [facility] Address [address] [place] [address] Phone Care Team Providers Care Filter Press Tender Head Name Role Phone Derek Ugalde MD Unavailable Unavailab le Medications Medication Instructions Dosage Effective Dates (start - stop) Status Comments Guaifenesin AC 10 mg-100 mg/5 mL Oral Liquid take 10 milliliter by oral route every 4 hours as needed for cough 10.00 milliliter - Active aspirin 81 mg Tab take 1 tablet (81MG) by oral route every day 81 MG - Active FLONASE 0.05% NASAL SPRAY spray 1 spray by intranasal route 2 times every day in each nostril - Active [place] Nasal 0.65 % [place] Aerosol 2 sprays each nostril daily - Active Advance Directives Directive Yes / No Effective Date File Name No Information Encounters Encounter Description Practice Location Reason(s) For Visit Diagnoses Date Provider Providers Copied on Encounter [facility], [address], [place], [place], [address], [place] tel:[phone] [facility] No Information May- 5 9 rTam Reed. [facility] [place], [place], [address], [place]. tel:[phone] [facility], [address], [place], [place], [address], [place] tel:[phone] [facility] Lower abdominal pain May-201 2 Tram Reed. [address] [place], [place], [address], [place]. tel:[phone] Referring Provider: Derek Ugalde , [address] [place] [address], [address] . tel:[phone] [facility], [address], [place], [place], [address], [place] tel:[phone] [facility] No Information 1 Tram Reed. [facility] [place], [place], [address], [place]. tel:[phone] [facility], [address], [place], [place], [address], [place] tel:[phone] [facility] Acute sinusitis, unspecified 0201 1 Brent Wanda. [facility], [address], [place], [address]. tel:[phone] Referring Provider: Derek Ugalde , [address] [place] [address], [address] . tel:[phone] [facility], [address], [place], [place], [address], [place] tel:[phone] [facility] IMPACTED CERUMENACUTE SINUSITIS NOS 6200 9 Naveed Silvana. [address] [place], [place], [address]. tel:[phone] [facility], [address], [place], [place], [address], [place] tel:[phone] [facility] DIARRHEA 9-200 8 Tram Reed. [facility] [place], [place], [address], [place]. tel:[phone] [facility], [address], [place], [place], [address], [place] tel:[phone] [facility] CONTUSION OF FINGERFX PHALANX, HAND NOS-CL 4-200 8 Tram Reed. [facility] [place], [place], [address], [place]. tel:[phone] [facility], [address], [place], [place], [address], [place] tel:[phone] [facility] BONE & CARTILAGE DIS NOS 8 Jason Otero. [address], [address], [place], [place], [address]. tel:[phone] [facility], [address], [place], [place], [address], [place] tel:[phone] [facility] CALCANEAL SPUR 6 Tram Reed. [address] [place], [place], [address], [place]. tel:[phone] [facility], [address], [place], [place], [address], [place] tel:[phone] [facility] LUMBAGO 6 Naveed Silvana. [address] [facility], [place], [place], [address]. tel:[phone] [facility], [address], [place], [place], [address], [place] tel:[phone] [facility] SCIATICA 6 Tram Reed. [facility] [place], [place], [address], [place]. tel:[phone] [facility], [address], [place], [place], [address], [place] tel:[phone] [facility] AORTIC VALVE DISORDER 6 Tram Reed. [address] [place], [place], [address], [place]. tel:[phone] [facility], [address], [place], [place], [address], [place] tel:[phone] [facility] DERMATITIS DUE TO PLANT 6 Tram Reed. [address] [place], [place], [address], [place]. tel:[phone] [facility], [address], [place], [place], [address], [place] tel:[phone] [facility] ACUTE URI NOS 0200 5 Naveed Silvana. [address] [place], [place], [address]. tel:[phone] [facility], [address], [place], [place], [address], tel:[phone] [facility] INFLAMED SBRHEIC KERATOSNONSPECIF SKIN ERUPT NEC 1200 4 Tram Reed. [address] [place], [place], [address], [place]. tel:[phone] [facility], [address], [place], [place], [address], tel:[phone] [facility] ACUTE BRONCHITIS 6 3 Conversion Doctor. [address] [place], [address], [place]. [facility], [address], [place], [place], [address], tel:[phone] [facility] TIETZE'S DISEASE 3 Naveed Silvana. [address] [facility], [place], [place], [address]. tel:[phone] [facility], [address], [place], [place], [address], tel:[phone] [facility] EXT THROMBOS HEMORRHOID 8200 2 Tram Reed. [address] [place], [place], [address], [place]. tel:[phone] Family History Family Member Type Diagnosis Age At Onset No Information Payers Payer name Insurance type Covered democrat ID Phyllis mendes(s) [facility] CI [id number] Social History Type Description Quantity Date Captured [...]
--- OUTSIDE RECORDS SUMMARY | 2024-10-28 16:02 | XMS_ITS | Clinical Summary ---
Author Organization [facility] Address [address] [place] [address] Care Team Providers Care Coal Bagger Name Role Phone Sheldon Newby Primary Care Provider [phone] Source Comments [facility],non-owned Affiliates and Associated Physician Practices is amultiple site organization consisting of ambulatory clinics and hospital sitesin [place], [place], [place] and [place]. This disclosure is being madepursuant to the Care Everywhere program and may not contain all information available regarding this patient. Last updated 17.[facility] [employer] Allergies No known active allergies Medications * [...] A1c 4.7 <5.7 % of total Hgb [facility] Comment: For the purpose of screening for the presence of diabetes: <5.7% Consistent with the absence of diabetes 5.7-6.4% Consistent with increased risk for diabetes (prediabetes) > or =6.5% Consistent with diabetes This assay result is consistent with a decreased risk of diabetes. Currently, no consensus exists regarding use of hemoglobin A1c for diagnosis of diabetes in children. According to [place] Diabetes Association (ADA) guidelines, hemoglobin A1c <7.0% represents optimal control in non- diabetic patients. Different metrics may apply to specific patient populations. Standards of Medical Care in Diabetes(ADA). Test Performed at: [facility] [address] PATTI PIMENTEL MD Blood BLOOD SPECIMEN / Unknown 10/23/2021 11:54 AM CDT 10/23/2021 11:58 AM CDT us Chaparro Zheng MD LAB - CHEMISTRY ORDERABLES Fi nal Result [facility] [address] [place] [address] from Last 3 Months or Most Recently Relevant to Health Maintenance Insurance MANAGED MEDICARE ADV Care Teams Coal Bagger Relationship Specialty Start Date End Date Sheldon Newby DO [address] [place] [address] PCP - General 09/13/21
--- OUTSIDE RECORDS SUMMARY | 2024-10-28 16:02 | XMS_ITS | Encounter Summary ---
Author Organization [facility], [facility] Address [address] [place] [address] Phone Care Team Providers Care Grooving Machine Operator Name Role Phone Benton Gonzales MD Primary Care Provider [phone] Glenn Thomas MD Primary Care Provider [phone] Cody Lara NP Primary Care Provider [phone] Jaylene Wolf MD PhD Unavailab le Alannah Gentile Unavailable [phone] Juvencio Cheney MD Unavailable Sylvia Layton NP Primary Care Provider [phone] Sneha Nayak OT Unavailable Unavailab le Zara Hatch NP Unavailable [phone] Tabitha Mcbride NP Unavailable [phone] Encounter Details Date Type Department Care Team (Latest Contact Info) Description 05/25/2017 Orders Only [facility] CONVERSION Scanning, Provider Social History Tobacco Use Types Packs/Day Years Used Date Smoking Tobacco: Former Comments Unknown Sex and Gender Information Value Date Recorded Sex Assigned at Not on file 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 Gender Identity Not on file Sexual Orientation [...] active infection Kelsey Segura RN generated from [facility] 08/30/1986 08/30/1986 09/27/2023 7:00 PM C DT documented as of this encounter Care Teams Grooving Machine Operator Relationship Specialty Start Date End Date Benton Gonzales MD [address] [place], [place] [address]KATHY Johnson [address] [address] PCP - General 05/07/16 05/01/19 Glenn Thomas MD [address] [place], [place] [address]KATHY Johnson [address] [address] PCP - General Family Medicine 05/02/19 01/23/23 Cody Lara NP [address] [facility] [address] [facility] [address] [place] [address] PCP - General Nurse Practitioner 01/24/23 10/02/23 Sylvia Layton NP [address] [place] [address] PCP - General Family Medicine 10/03/23 Jaylene Wolf MD PhD [address] [place] [address] Consulting Physician Neurology 07/11/23 Alannah Gentile PA [address] [facility] [address] [place] [address] Physician Transportation Services Representative Physician Transportation Services Representative 07/11/23 Juvencio Cheney MD [address] [place] [address] NEUROLOGY SLEEP MED, [facility] [address] [place] [address] Consulting Physician Sleep Medicine 08/19/23 Sneha Nayak, OT Occupational Therapist Occupational Therapy 11/18/23 Zara Hatch NP [address] [facility] [address] [place] [address] Nurse Practitioner Hospice and Palliative Medicine 02/01/24 Tabitha Mcbride NP [address] [facility] [address] [facility] [address] [place] [address] Nurse Practitioner Hospice and Palliative Medicine 05/04/24 documented as of this encounter
[2024-10-28 17:36] LABS: Hematocrit 38.3 % (37.0-47.0); Hemoglobin 12.4 g/dL (12.0-15.0); Immature Granulocyte Percent A 0.5 % (0-0.5); Lymphocytes Absolute Auto 1.05 K/mm3 (0.9-3.2); Mean Corpuscular HGB Conc 32.4 g/dl (32-36); Mean Corpuscular Hemoglobin 29.5 pg (26-34); Mean Corpuscular Volume 91.0 fl (80-100); Nucleated Red Blood Cells Absolute Auto 0.000 K/mm3 (0.0-0.012); Nucleated Red Blood Cells Perc 0.0 % (0.0-0.2); Platelet Count Result 254 k/mm3 (150-375); Red Blood Count 4.21 M/mm3 (4.2-5.4); White Blood Count 8.8 K/mm3 (4.5-10.0)
[2024-10-28 17:49] LABS: INR 2.6; Prothrombin Time 27.3 Seconds (11.1-14.7)
== END 2024-10-28 19:07 | disposition home or self-care (01) ==
PROVIDERS: Emergency Provider Emergency Medicine; PCP Nurse Practitioner Family
DX: L02.01 Cutaneous abscess of face (principal); W19.XXXA Unspecified fall, initial encounter; Z79.01 Long term (current) use of anticoagulants; Z95.2 Presence of prosthetic heart valve; M81.0 Age-related osteoporosis without current pathological fracture; E78.5 Hyperlipidemia, unspecified; E55.9 Vitamin D deficiency, unspecified; I10 Essential (primary) hypertension; Z87.891 Personal history of nicotine dependence
CPT/HCPCS: 10061; 36415; 70450; 85025; 85610; 87070; 87205; 99284; A9270; J2004

== ENCOUNTER 2024-11-08 10:27 | Outpatient (RCR) | payer MEDICARE, SELFPAY ==
[2024-11-08 10:30] VITALS: BMI 29.2
--- NOTE | 2024-11-08 10:47 | WNDPHOTO ---
PHOTO ONLY - See Nursing Notes and/ or assessments for documentation.
== END 2025-01-28 08:11 | disposition home or self-care (01) ==
LOC: ANHWOC 10:27
PROVIDERS: PCP Nurse Practitioner Family; Visit Provider Nurse Practitioner Family
DX: L02.91 Cutaneous abscess, unspecified (principal)
CPT/HCPCS: 99214; G0463